=== PATIENT | female | born 1960 ===

== ENCOUNTER 2016-09-04 14:16 | Emergency (ER) | payer MEDICAID ==
[2016-09-04 14:16] VITALS: BMI 26.6
[2016-09-04 14:43] VITALS: BP 112/74; PULSE 102; RESP 18; TEMP 98.3; O2SAT 98
[2016-09-04] MEDS ORDERED: TDAP Vaccine 0.5 mL Syr IM ONE (14:51)
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
--- NOTE | 2016-09-04 15:52 | RAD ---
PROCEDURE: Radiographs of the left elbow. HISTORY: pain s/p trauma COMPARISON: No prior. FINDINGS: BONES: Normal. No fracture. JOINTS: Normal. No osteoarthritis. SOFT TISSUES: Normal. JOINT EFFUSION: None. OTHER FINDINGS: None IMPRESSION: Unremarkable radiographs of the left elbow.
--- NOTE | 2016-09-04 15:52 | RAD ---
PROCEDURE: Radiographs of the Left Shoulder HISTORY: shoulder pain s/p trauma COMPARISON: No prior. FINDINGS: BONES: Normal. No fracture. JOINTS: Normal. Glenohumeral and acromioclavicular joints preserved. No osteoarthritis. SOFT TISSUES: Normal. OTHER FINDINGS: None. IMPRESSION: Normal radiographs of the left shoulder.
--- NOTE | 2016-09-04 15:54 | RAD ---
PROCEDURE: Left Wrist Radiographs. HISTORY: wrist pain s/p trauma COMPARISON: None. FINDINGS: BONES: Normal. No fracture. JOINTS: Normal. No dislocation. SOFT TISSUES: Normal. OTHER FINDINGS: None. IMPRESSION: Normal left wrist radiographs.
== END 2016-09-04 16:28 | disposition home or self-care (01) ==
LOC: ED 14:16
DX: S63.502A Unspecified sprain of left wrist, initial encounter (principal); S43.402A Unspecified sprain of left shoulder joint, initial encounter; S40.812A Abrasion of left upper arm, initial encounter; W18.30XA Fall on same level, unspecified, initial encounter
CPT/HCPCS: 29240; 73030; 73080; 73110; 90471; 90715; 96372; 99282; J1885

== ENCOUNTER 2016-09-08 18:59 | Emergency (ER) | payer MEDICAID ==
[2016-09-08 19:00] VITALS: BMI 26.6
--- NOTE | 2016-09-08 19:04 | ED PDOC ---
Arrival/HPI - General Time Seen by Provider: 09/08/16 19:01 Historian: Patient - History of Present Illness Narrative History of Present Illness (Text): 09/08/16 19:01 55yo female biba for wound care. states she went to [facility] days ago and a dressing was placed over her abrasion. States the abrasion became stuck to the wound and she came to the ED to get it out. She denies any other complaint. Past Medical History - Provider Review Nursing Documentation Reviewed: Yes - Infectious Disease Hx of Infectious Diseases: None - Tetanus Immunization Tetanus Immunization: OTH - Past Medical History Past Medical History: No Previous - Cardiac Hx Cardiac Disorders: No - Pulmonary Hx Respiratory Disorders: No - Neurological Hx Neurological Disorder: Yes Hx Migraine: Yes Hx Seizures: Yes - HEENT Hx HEENT Disorder: No - Renal Hx Renal Disorder: No - Endocrine/Metabolic Hx Endocrine Disorders: Yes Hx Systemic Lupus Erythematosus: Yes - Hematological/Oncological Hx Blood Disorders: No - Integumentary Hx Dermatological Disorder: Yes Hx Psoriasis: Yes - Musculoskeletal/Rheumatological Hx Musculoskeletal Disorders: Yes Hx Arthritis: Yes - Gastrointestinal Hx Gastrointestinal Disorders: Yes Hx Gall Bladder Disease: Yes (stones) - Genitourinary/Gynecological Hx Genitourinary Disorders: No - Psychiatric Hx Psychophysiologic Disorder: Yes Hx Anxiety: Yes Hx Depression: Yes Hx Substance Use: No - Past Surgical History Past Surgical History: Non-Contributing - Surgical History Hx Cholecystectomy: Yes - Anesthesia Hx Anesthesia: Yes Hx Anesthesia Reactions: No Hx Malignant Hyperthermia: No - Suicidal Assessment Feels Threatened In Home Enviroment: No Family/Social History - Physician Review Nursing Documentation Reviewed: Yes Family/Social History: Unknown Family HX Smoking Status: Never Smoked Hx Alcohol Use: No Hx Substance Use: No Hx Substance Use Treatment: No Allergies/Home Meds Allergies/Adverse Reactions: Allergies morphine Allergy (Verified 09/04/16 14:40) DIZZINESS phenytoin sodium [From Dilantin] Allergy (Verified 09/04/16 14:40) RASH phenytoin sodium extended [From Dilantin] Allergy (Verified 09/04/16 14:40) RASH quetiapine fumarate [From Seroquel] Allergy (Verified 09/04/16 14:40) RASH tramadol Allergy (Verified 09/04/16 14:40) RASH Review of Systems - Physician Review All systems were reviewed & negative as marked: Yes - Review of Systems Constitutional: Normal Eyes: Normal ENT: Normal Respiratory: Normal Cardiovascular: Normal Gastrointestinal: Normal Genitourinary Female: Normal Musculoskeletal: Normal Skin: Other (Wound care) Neurological: Normal Endocrine: Normal Hemo/Lymphatic: Normal Psychiatric: Normal Physical Exam Vital Signs Reviewed: Yes Vital Signs Temp Pulse Resp BP Pulse Ox 09/08/16 19:00 99.1 F 92 H 16 120/80 98 Temperature: Afebrile Blood Pressure: Normal Pulse: Regular Respiratory Rate: Normal Appearance: Positive for: Well-Appearing, Non-Toxic, Comfortable Pain Distress: None Mental Status: Positive for: Alert and Oriented X 3 - Systems Exam Head: Present: Atraumatic, Normocephalic Pupils: Present: PERRL Extroacular Muscles: Present: EOMI Conjunctiva: Present: Normal Mouth: Present: Moist Mucous Membranes Neck: Present: Normal Range of Motion Respiratory/Chest: Present: Clear to Auscultation, Good Air Exchange. No: Respiratory Distress, Accessory Muscle Use Cardiovascular: Present: Regular Rate and Rhythm, Normal S1, S2. No: Murmurs Abdomen: Present: Normal Bowel Sounds. No: Tenderness, Distention, Peritoneal Signs Back: Present: Normal Inspection Upper Extremity: Present: Normal Inspection. No: Cyanosis, Edema Lower Extremity: Present: Normal Inspection. No: Edema Neurological: Present: GCS=15, CN II-XII Intact, Speech Normal Skin: Present: Warm, Dry, Normal Color, Other (Gauze noted stuck on right mid forearm.). No: Rashes Psychiatric: Present: Alert, Oriented x 3, Normal Insight, Normal Concentration Medical Decision Making ED Course and Treatment: 09/08/16 19:59 Wound was wet with NS and gauze was removed. Wound irrigated with NS and Bacitracine applied. Annular shaped abrasion approximately 4 x 3cm noted on left mid forearm. No erythema. No swelling. No discharge noted. Pt advised to keep wound clean and dry. Disposition/Present on Arrival - Present on Arrival Any Indicators Present on Arrival: No History of DVT/PE: No History of Uncontrolled Diabetes: No Urinary Catheter: No History Surgical Site Infection Following: None - Disposition Have Diagnosis and Disposition been Completed?: Yes Diagnosis: Visit for wound care Disposition: HOME/ ROUTINE Disposition Time: 19:15 Patient Plan: Discharge Patient Problems: Current Active Problems Problem Status Onset Visit for wound care Acute Condition: STABLE Discharge Instructions (ExitCare): Acute Wound Care (ED) Additional Instructions: Keep wound clean and dry Follow up with your Doctor Return to ED for any new or worsening symptoms Referrals: [facility] at [facility] [Outside] - Follow up with primary
[2016-09-08 19:40] VITALS: RESP 16; TEMP 99.1; O2SAT 98
[2016-09-08 20:34] VITALS: BP 117/74; PULSE 90
== END 2016-09-08 20:33 | disposition home or self-care (01) ==
LOC: ED 18:59
DX: Z51.89 Encounter for other specified aftercare (principal); M32.9 Systemic lupus erythematosus, unspecified

== ENCOUNTER 2016-10-25 13:24 | Emergency (ER) | payer MEDICAID ==
[2016-10-25 13:30] VITALS: BMI 27.4
[2016-10-25 13:35] VITALS: BP 132/70; PULSE 98; RESP 19; TEMP 98.7; O2SAT 99
--- NOTE | 2016-10-25 14:27 | ED PDOC ---
Arrival/HPI - General Historian: Patient - History of Present Illness Time/Duration: Other (2 weeks) Symptom Onset: Gradual Quality: Aching Context: Home - General Chief Complaint: Back Pain Time Seen by Provider: 10/25/16 14:09 - History of Present Illness Narrative History of Present Illness (Text): 10/25/16 14:00 This 55 yo female with pmh chronic back pain, presents to this ED by BLS c/o b/ l lower back pain x 2 weeks. Patient denies trauma, fever, weakness, paresthesias, abdominal pain, GI/ incontinence, saddle anesthesias, urinary retention, urinary symptoms, dizziness, or MCCALL. Patient statsd she ambulatory but with mild back pain. Denies constipation. Patient appears comfortable, in no acute pain distress. Patient is texting messages while laying on stretcher with personal cellphone. (Muna Perez) Past Medical History - Provider Review Nursing Documentation Reviewed: Yes - Infectious Disease Hx of Infectious Diseases: None - Tetanus Immunization Tetanus Immunization: OTH - Past Medical History Past Medical History: No Previous - Cardiac Hx Cardiac Disorders: No - Pulmonary Hx Respiratory Disorders: No - Neurological Hx Neurological Disorder: Yes Hx Migraine: Yes Hx Seizures: Yes - HEENT Hx HEENT Disorder: No - Renal Hx Renal Disorder: No - Endocrine/Metabolic Hx Endocrine Disorders: Yes Hx Systemic Lupus Erythematosus: Yes - Hematological/Oncological Hx Blood Disorders: No - Integumentary Hx Dermatological Disorder: Yes Hx Psoriasis: Yes - Musculoskeletal/Rheumatological Hx Musculoskeletal Disorders: Yes Hx Arthritis: Yes - Gastrointestinal Hx Gastrointestinal Disorders: Yes Hx Gall Bladder Disease: Yes (stones) - Genitourinary/Gynecological Hx Genitourinary Disorders: No - Psychiatric Hx Psychophysiologic Disorder: Yes Hx Anxiety: Yes Hx Depression: Yes Hx Substance Use: No - Past Surgical History Past Surgical History: Non-Contributing - Surgical History Hx Cholecystectomy: Yes - Anesthesia Hx Anesthesia: Yes Hx Anesthesia Reactions: No Hx Malignant Hyperthermia: No - Suicidal Assessment Feels Threatened In Home Enviroment: No Family/Social History - Physician Review Nursing Documentation Reviewed: Yes Family/Social History: No Known Family HX Smoking Status: Never Smoked Hx Alcohol Use: No Hx Substance Use: No Hx Substance Use Treatment: No Allergies/Home Meds Allergies/Adverse Reactions: Allergies morphine Allergy (Verified 09/04/16 14:40) DIZZINESS phenytoin sodium [From Dilantin] Allergy (Verified 09/04/16 14:40) RASH phenytoin sodium extended [From Dilantin] Allergy (Verified 09/04/16 14:40) RASH quetiapine fumarate [From Seroquel] Allergy (Verified 09/04/16 14:40) RASH tramadol Allergy (Verified 09/04/16 14:40) RASH Home Medications: Home Meds Medication Instructions Recorded Confirmed Acetaminophen with Codeine 1 tab PO DAILY PRN 10/25/16 10/25/16 [Tylenol with Codeine #3 Tablet] Review of Systems - Review of Systems Constitutional: Normal. absent: Fatigue, Weight Change, Fevers, Night Sweats Eyes: Normal ENT: Normal Respiratory: Normal. absent: SOB, Cough, Sputum Cardiovascular: Normal. absent: Chest Pain, Palpitations Gastrointestinal: Normal. absent: Abdominal Pain, Nausea, Vomiting Genitourinary Female: Normal. absent: Dysuria, Frequency, Hematuria, Vaginal Bleeding, Vaginal Discharge Musculoskeletal: Back Pain. absent: Arthralgias, Neck Pain, Joint Swelling, Myalgias Skin: Normal. absent: Rash Neurological: Normal, Other (normal gait.). absent: Headache, Dizziness, Focal Weakness, Gait Changes, Speech Changes, Facial Droop, Disequilibrium, Seizure Endocrine: Normal Hemo/Lymphatic: Normal Psychiatric: Normal, Anxiety (pmh anxiety. Denies SI, or HI) Physical Exam Temperature: Afebrile Blood Pressure: Normal Pulse: Regular Respiratory Rate: Normal Appearance: Positive for: Well-Appearing, Non-Toxic, Comfortable Pain Distress: None Mental Status: Positive for: Alert and Oriented X 3 - Systems Exam Head: Present: Atraumatic, Normocephalic Pupils: Present: PERRL Extroacular Muscles: Present: EOMI Conjunctiva: Present: Normal Mouth: Present: Moist Mucous Membranes Neck: Present: Normal Range of Motion, Trachea Midline. No: Meningeal Signs, MIDLINE TENDERNESS, Paraspinal Tenderness, Lymphadenopathy Respiratory/Chest: Present: Clear to Auscultation, Good Air Exchange. No: Respiratory Distress, Accessory Muscle Use Cardiovascular: Present: Regular Rate and Rhythm, Normal S1, S2. No: Murmurs Abdomen: Present: Normal Bowel Sounds. No: Tenderness, Distention, Peritoneal Signs, Rebound, Guarding, McBurney's Point Tender, Rovsing's Sign Present, Hernias Back: Present: Normal Inspection. No: CVA Tenderness, Midline Tenderness, Paraspinal Tenderness, Pain with Leg Raise Upper Extremity: Present: Normal Inspection, Normal ROM, NORMAL PULSES, Neurovascularly Intact, Capillary Refill < 2s. No: Cyanosis, Edema Lower Extremity: Present: Normal Inspection, NORMAL PULSES, Normal ROM. No: Edema Neurological: Present: GCS=15, CN II-XII Intact, Speech Normal, Motor Func Grossly Intact, Normal Sensory Function, Normal Cerebellar Funct, Gait Normal, Memory Normal Skin: Present: Warm, Dry, Normal Color. No: Rashes Psychiatric: Present: Alert, Oriented x 3, Normal Insight, Normal Concentration Vital Signs Temp Pulse Resp BP Pulse Ox 10/25/16 13:34 98.7 F 98 H 19 132/70 99 Medical Decision Making Re-evaluation Time: 14:40 Reassessment Condition: Re-examined, Improved ED Course and Treatment: 10/25/16 14:42 I was available for consultation during PA evaluation. The chart reviewed by me , and I agree with disposition. The documented history was done by the physician coal tram driver. The documented physical exam was done by physician coal tram driver. The documented procedures were done by physician coal tram driver. (Leif Velazco) 10/25/16 14:41 Discussed results and plan with patient. Patient understands results and is agreeable with plan. All questions answered Patient symptoms had improved after Toradol IM. Patient is ambulatory without neuro focal deficits. Patient feels well and wishes to be discharge home. (Muna Perez) - Medication Orders Current Medication Orders: Discontinued Medications Ketorolac Tromethamine (Toradol) 15 mg IM STAT STA Stop: 10/25/16 14:30 Last Admin: 10/25/16 14:35 Dose: 15 mg Disposition/Present on Arrival - Present on Arrival Any Indicators Present on Arrival: No History of DVT/PE: No History of Uncontrolled Diabetes: No Urinary Catheter: No History of Decub. Ulcer: No History Surgical Site Infection Following: None - Disposition Have Diagnosis and Disposition been Completed?: Yes Disposition Time: 14:44 Patient Plan: Discharge - Disposition Diagnosis: Chronic back pain Disposition: HOME/ ROUTINE Condition: GOOD Discharge Instructions (ExitCare): Chronic Back Pain (ED) Additional Instructions: Call private doctor for follow up visit in 1-2 days. Take medication as instructed. Return to emergency if symptoms worsen. Prescriptions: Naproxen 500 mg PO BID PRN #14 tab PRN Reason: Pain, Severe (8-10) Referrals: PCP,NO [Primary Care Provider] - Follow up with primary Forms: [employer] (Ukrainian)
== END 2016-10-25 14:48 | disposition home or self-care (01) ==
LOC: ED 13:24
DX: M54.9 Dorsalgia, unspecified (principal); G89.29 Other chronic pain
CPT/HCPCS: 96372; 99284; J1885

== ENCOUNTER 2016-10-27 20:26 | Emergency (ER) | payer MEDICAID ==
[2016-10-27 20:26] VITALS: BMI 27.4
[2016-10-27 20:50] VITALS: RESP 17; O2SAT 100
[2016-10-27 20:52] VITALS: TEMP 98.6
--- NOTE | 2016-10-27 21:10 | ED PDOC ---
Arrival/HPI - General Chief Complaint: GI Problem Time Seen by Provider: 10/27/16 20:35 Historian: Patient - History of Present Illness Narrative History of Present Illness (Text): 10/27/16 21:07 Gladys Franz is a 55 year old female, with a history of hypertension and chronic back pain, presents to the emergency department complaining of abdominal pain and rectal bleeding since today morning. Denies any constipation or straining. Denies any black tarry stool. Denies any fever, chills, headache, dizziness, chest pain, shortness of breath, nausea, vomiting, diarrhea, or any other complaints at this time. Time/Duration: Other (today morning ) Symptom Course: Unchanged Severity Level: Mild Activities at Onset: Light Past Medical History - Provider Review Nursing Documentation Reviewed: Yes - Infectious Disease Hx of Infectious Diseases: None - Tetanus Immunization Tetanus Immunization: OTH - Past Medical History Past Medical History: No Previous - Cardiac Hx Cardiac Disorders: No - Pulmonary Hx Respiratory Disorders: No - Neurological Hx Neurological Disorder: Yes Hx Migraine: Yes Hx Seizures: Yes - HEENT Hx HEENT Disorder: No - Renal Hx Renal Disorder: No - Endocrine/Metabolic Hx Endocrine Disorders: Yes Hx Systemic Lupus Erythematosus: Yes - Hematological/Oncological Hx Blood Disorders: No - Integumentary Hx Dermatological Disorder: Yes Hx Psoriasis: Yes - Musculoskeletal/Rheumatological Hx Musculoskeletal Disorders: Yes Hx Arthritis: Yes - Gastrointestinal Hx Gastrointestinal Disorders: Yes Hx Gall Bladder Disease: Yes (stones) - Genitourinary/Gynecological Hx Genitourinary Disorders: No - Psychiatric Hx Psychophysiologic Disorder: Yes Hx Anxiety: Yes Hx Depression: Yes Hx Substance Use: No - Past Surgical History Past Surgical History: Non-Contributing - Surgical History Hx Cholecystectomy: Yes - Anesthesia Hx Anesthesia: Yes Hx Anesthesia Reactions: No Hx Malignant Hyperthermia: No - Suicidal Assessment Feels Threatened In Home Enviroment: No Family/Social History - Physician Review Nursing Documentation Reviewed: Yes Family/Social History: No Known Family HX Smoking Status: Never Smoked Hx Alcohol Use: No Hx Substance Use: No Hx Substance Use Treatment: No Allergies/Home Meds Allergies/Adverse Reactions: Allergies morphine Allergy (Verified 09/04/16 14:40) DIZZINESS phenytoin sodium [From Dilantin] Allergy (Verified 09/04/16 14:40) RASH phenytoin sodium extended [From Dilantin] Allergy (Verified 09/04/16 14:40) RASH quetiapine fumarate [From Seroquel] Allergy (Verified 09/04/16 14:40) RASH tramadol Allergy (Verified 09/04/16 14:40) RASH Home Medications: Home Meds Medication Instructions Recorded Confirmed Acetaminophen with Codeine 1 tab PO DAILY PRN 10/25/16 10/27/16 [Tylenol with Codeine #3 Tablet] Physical Exam Vital Signs Reviewed: Yes Vital Signs Temp Pulse Resp BP Pulse Ox 10/27/16 23:00 78 17 120/75 100 10/27/16 22:00 80 17 119/71 100 10/27/16 20:26 98.6 F 104 H 17 118/58 L 100 Temperature: Afebrile Blood Pressure: Normal Pulse: Tachycardic Respiratory Rate: Normal Appearance: Positive for: Well-Appearing, Non-Toxic, Comfortable Pain Distress: None Mental Status: Positive for: Alert and Oriented X 3 - Systems Exam Head: Present: Atraumatic, Normocephalic Pupils: Present: PERRL Conjunctiva: Present: Normal Mouth: Present: Moist Mucous Membranes Respiratory/Chest: Present: Clear to Auscultation, Good Air Exchange. No: Respiratory Distress, Accessory Muscle Use Cardiovascular: Present: Regular Rate and Rhythm, Normal S1, S2. No: Murmurs Abdomen: Present: Normal Bowel Sounds. No: Tenderness, Distention, Peritoneal Signs, Rebound, Guarding Rectal: No: Occult Blood, Rectal Tenderness, Gross Blood Upper Extremity: Present: Normal Inspection. No: Cyanosis, Edema Lower Extremity: Present: Normal Inspection. No: Edema Neurological: Present: GCS=15, CN II-XII Intact, Speech Normal, Motor Func Grossly Intact, Normal Sensory Function Skin: Present: Warm, Dry, Normal Color. No: Rashes Psychiatric: Present: Alert, Oriented x 3, Normal Insight, Normal Concentration Medical Decision Making ED Course and Treatment: 10/27/16 21:13 Impression:A 55 year old female who presents to the emergency department complaining of abdominal pain and rectal bleeding. Plan: -- CT abdomen pelvis -- EKG -- Labs, cardiac enzymes -- Chest X-ray -- Reassess and disposition Progress Notes: 10/27/16 22:55 EKG reviewed by me: NSR @ 86 bpm. Right atrial enlargement. Patient states that she wants to sign out against medical advice. I strongly advised the patient to stay in the hospital for completion of treatment, but she states she understands the risks of leaving and is adamant in her decision. Advised to follow up with PMD within few days and present back to emergency department for any new/worsening symptoms Leaving Against Medical Advice (AMA): The patient is choosing to leave against medical advice. I have personally explained to the patient that choosing to do so may result in permanent bodily harm or . I have discussed at great length that without further evaluation and monitoring there may be unforeseen circumstances and/or deterioration causing permanent bodily harm or as a result of their choice. The patient is alert, oriented, and shows the mental capacity to make clear decisions regarding the patients health care at this time. The patient continues to wish to leave against medical advice. The patient has been advised that they should return to the emergency room immediately if they change their mind at any time, or if their condition begins to change or worsen in any way.. - Lab Interpretations I have reviewed the lab results: Yes - RAD Interpretation Radiology Orders: 10/27/16 20:58 CHEST PORTABLE [RAD] Stat Sticker Machine Operator: Radiologist - Scribe Statement The provider has reviewed the documentation as recorded by the Ninaibe Sebastian Rojas Provider Attestation: Provider Scribe Attestation: All medical record entries made by the Ninaibe were at my direction and personally dictated by me. I have reviewed the chart and agree that the record accurately reflects my personal performance of the history, physical exam, medical decision making, and the department course for this patient. I have also personally directed, reviewed, and agree with the discharge instructions and disposition. Disposition/Present on Arrival - Present on Arrival Any Indicators Present on Arrival: No History of DVT/PE: No History of Uncontrolled Diabetes: No Urinary Catheter: No History of Decub. Ulcer: No History Surgical Site Infection Following: None - Disposition Have Diagnosis and Disposition been Completed?: Yes Diagnosis: Lower gastrointestinal bleeding Disposition: AGAINST MEDICAL ADVICE Disposition Time: 23:00 Condition: UNKNOWN Referrals: Kar Welch [Primary Care Provider] - Follow up with primary Forms: [employer] (B[place]ian)
[2016-10-28 00:35] VITALS: BP 120/75; PULSE 78
--- NOTE | 2016-10-28 07:12 | RAD ---
Chest x-ray single frontal view History: GI bleed. Comparison: 02/23/2016 Findings: Mild venous congestion. Bilateral hilar prominence. Biapical pleural thickening. Heart size within limits. Degenerative changes in the spine and shoulders. Productive change at the end of the left distal clavicle. Impression: Mild venous congestion. Bilateral hilar prominence.
--- NOTE | 2016-10-29 09:41 | CARD ---
APPROVED REPORT EKG Measurement Heart [id number] MD [id number] [id number] <Conclusion> Normal sinus rhythm Right atrial enlargement Lead reversal V 1 - 2 Probably no change
== END 2016-10-27 23:00 | disposition left against medical advice (07) ==
LOC: ED 20:26
DX: K92.2 Gastrointestinal hemorrhage, unspecified (principal); I10 Essential (primary) hypertension

== ENCOUNTER 2016-10-30 09:53 | Emergency (ER) | payer MEDICAID ==
[2016-10-30 09:54] VITALS: BMI 27.4
[2016-10-30 09:59] VITALS: BP 136/82; PULSE 95; RESP 16; TEMP 98.6; O2SAT 100
--- NOTE | 2016-10-30 10:34 | ED PDOC ---
Arrival/HPI - General Chief Complaint: Anxiety Time Seen by Provider: 10/30/16 10:13 Historian: Mcfp - History of Present Illness Narrative History of Present Illness (Text): 10/30/16 10:31 This 55 yo female presents to this ED c/o anxiety x 2 days. Patient stated she ran out of her medication, and she is requesting anxiety meds. Patient denies sob, cp, SI, HI, or abnormal gait. Time/Duration: Other (see hpi) Context: Home Past Medical History - Provider Review Nursing Documentation Reviewed: Yes - Infectious Disease Hx of Infectious Diseases: None - Tetanus Immunization Tetanus Immunization: OTH - Reproductive Menopause: Yes - Past Medical History Past Medical History: No Previous - Cardiac Hx Cardiac Disorders: No - Pulmonary Hx Respiratory Disorders: No - Neurological Hx Neurological Disorder: Yes Hx Migraine: Yes Hx Seizures: Yes - HEENT Hx HEENT Disorder: No - Renal Hx Renal Disorder: No - Endocrine/Metabolic Hx Endocrine Disorders: Yes Hx Systemic Lupus Erythematosus: Yes - Hematological/Oncological Hx Blood Disorders: No - Integumentary Hx Dermatological Disorder: Yes Hx Psoriasis: Yes - Musculoskeletal/Rheumatological Hx Musculoskeletal Disorders: Yes Hx Arthritis: Yes - Gastrointestinal Hx Gastrointestinal Disorders: Yes Hx Gall Bladder Disease: Yes (stones) - Genitourinary/Gynecological Hx Genitourinary Disorders: No - Psychiatric Hx Psychophysiologic Disorder: Yes Hx Anxiety: Yes Hx Depression: Yes Hx Substance Use: No - Past Surgical History Past Surgical History: Non-Contributing - Surgical History Hx Cholecystectomy: Yes - Anesthesia Hx Anesthesia: Yes Hx Anesthesia Reactions: No Hx Malignant Hyperthermia: No - Suicidal Assessment Feels Threatened In Home Enviroment: No Family/Social History - Physician Review Nursing Documentation Reviewed: Yes Family/Social History: No Known Family HX Smoking Status: Never Smoked Hx Alcohol Use: No Hx Substance Use: No Hx Substance Use Treatment: No Allergies/Home Meds Allergies/Adverse Reactions: Allergies morphine Allergy (Verified 09/04/16 14:40) DIZZINESS phenytoin sodium [From Dilantin] Allergy (Verified 09/04/16 14:40) RASH phenytoin sodium extended [From Dilantin] Allergy (Verified 09/04/16 14:40) RASH quetiapine fumarate [From Seroquel] Allergy (Verified 09/04/16 14:40) RASH tramadol Allergy (Verified 09/04/16 14:40) RASH Home Medications: Home Meds Medication Instructions Recorded Confirmed No Known Home Med 10/30/16 10/30/16 Review of Systems - Review of Systems Constitutional: Normal. absent: Fatigue, Weight Change, Fevers Eyes: Normal ENT: Normal Respiratory: Normal. absent: SOB, Cough Cardiovascular: Normal. absent: Chest Pain Gastrointestinal: Normal Genitourinary Female: Normal Musculoskeletal: Normal Skin: Normal. absent: Rash Neurological: Normal. absent: Headache, Dizziness, Focal Weakness, Gait Changes , Speech Changes, Facial Droop Endocrine: Normal Hemo/Lymphatic: Normal Psychiatric: Anxiety. absent: Depression, Suicidal Ideation Physical Exam Vital Signs Temp Pulse Resp BP Pulse Ox 10/30/16 09:56 98.6 F 95 H 16 136/82 100 Temperature: Afebrile Blood Pressure: Normal Pulse: Regular Respiratory Rate: Normal Appearance: Positive for: Well-Appearing, Non-Toxic, Comfortable Pain Distress: None Mental Status: Positive for: Alert and Oriented X 3 - Systems Exam Head: Present: Atraumatic, Normocephalic Pupils: Present: PERRL Extroacular Muscles: Present: EOMI Conjunctiva: Present: Normal Mouth: Present: Moist Mucous Membranes Neck: Present: Normal Range of Motion Respiratory/Chest: Present: Clear to Auscultation, Good Air Exchange. No: Respiratory Distress, Accessory Muscle Use Cardiovascular: Present: Regular Rate and Rhythm, Normal S1, S2. No: Murmurs Abdomen: Present: Normal Bowel Sounds. No: Tenderness, Distention, Peritoneal Signs Back: Present: Normal Inspection Upper Extremity: Present: Normal Inspection. No: Cyanosis, Edema Lower Extremity: Present: Normal Inspection. No: Edema Neurological: Present: GCS=15, CN II-XII Intact, Speech Normal, Motor Func Grossly Intact, Normal Sensory Function, Normal Cerebellar Funct, Gait Normal, Memory Normal Skin: Present: Warm, Dry, Normal Color. No: Rashes Psychiatric: Present: Alert, Oriented x 3, Anxious. No: Suicidal Ideation, Homicidal Ideation, Delusional, Hallucinations, Intoxicated Medical Decision Making ED Course and Treatment: 10/30/16 10:47 Patient does not want to have blood test or urine test done to her. Patient stated she is not suicidal or homicidal. She does not want to see PES screener. She prefers seeing her pmd. Patient is alert and oriented x 3. She speak in full sentences. She has a normal gait. I reviewed [place] [facility] which demonstrates patient has been filling Aprazolam 0.5 tab #90 tabs, Acetaminophen #3 tab #90 tabs, and Zolpidem 10 mg tab #30 tabs. Last time patient filled this medication was 10/09/2016 Re-evaluation Time: 10:56 Reassessment Condition: Re-examined, Improved - RAD Interpretation Radiology Orders: 10/30/16 10:32 CHEST PORTABLE [RAD] Stat Disposition/Present on Arrival - Present on Arrival Any Indicators Present on Arrival: No History of DVT/PE: No History of Uncontrolled Diabetes: No Urinary Catheter: No History of Decub. Ulcer: No History Surgical Site Infection Following: None - Disposition Have Diagnosis and Disposition been Completed?: Yes Diagnosis: Anxiety Disposition: HOME/ ROUTINE Disposition Time: 10:56 Patient Plan: Discharge Condition: GOOD Discharge Instructions (ExitCare): Anxiety (ED) Additional Instructions: Call private doctor for follow up visit in 1-2 days. Take home medication as instructed. Do not take more tabs that otherwise ordered by your doctor. Referrals: Patient Care Nursing Assistant Service [Outside] - Follow up with primary [facility] [Outside] - Follow up with primary
--- NOTE | 2016-10-30 11:38 | RAD ---
HISTORY: PES eval COMPARISON: 10/27/2016. FINDINGS: LUNGS: The lungs are well inflated and clear. PLEURA: No significant pleural effusion identified, no pneumothorax apparent. CARDIOVASCULAR: The heart is normal in size. The cardiomediastinal silhouette is stable. There is stable prominence of bilateral malena. OSSEOUS STRUCTURES: No significant abnormalities. VISUALIZED UPPER ABDOMEN: Normal. OTHER FINDINGS: None. IMPRESSION: No acute findings.
== END 2016-10-30 11:04 | disposition home or self-care (01) ==
LOC: ED 09:53
DX: F41.9 Anxiety disorder, unspecified (principal)

== ENCOUNTER 2016-10-31 05:08 | Emergency (ER) | payer MEDICAID ==
[2016-10-31 05:10] VITALS: BMI 27.4
[2016-10-31 05:21] VITALS: BP 152/81; PULSE 94; RESP 16; TEMP 98.2; O2SAT 100
--- NOTE | 2016-10-31 05:57 | ED PDOC ---
Arrival/HPI - General Chief Complaint: Anxiety Time Seen by Provider: 10/31/16 05:39 - History of Present Illness Narrative History of Present Illness (Text): 55F presents via ambulance requesting a "shot to calm me down." she also requests anxiety medication as she says she lost her medication "30 days ago." denies chest pain, sob, cough, fever. Past Medical History - Infectious Disease Hx of Infectious Diseases: None - Tetanus Immunization Tetanus Immunization: OTH - Past Medical History Past Medical History: No Previous - Cardiac Hx Cardiac Disorders: No - Pulmonary Hx Respiratory Disorders: No - Neurological Hx Neurological Disorder: Yes Hx Migraine: Yes Hx Seizures: Yes - HEENT Hx HEENT Disorder: No - Renal Hx Renal Disorder: No - Endocrine/Metabolic Hx Endocrine Disorders: Yes Hx Systemic Lupus Erythematosus: Yes - Hematological/Oncological Hx Blood Disorders: No - Integumentary Hx Dermatological Disorder: Yes Hx Psoriasis: Yes - Musculoskeletal/Rheumatological Hx Musculoskeletal Disorders: Yes Hx Arthritis: Yes - Gastrointestinal Hx Gastrointestinal Disorders: Yes Hx Gall Bladder Disease: Yes (stones) - Genitourinary/Gynecological Hx Genitourinary Disorders: No - Psychiatric Hx Psychophysiologic Disorder: Yes Hx Anxiety: Yes Hx Depression: Yes Hx Substance Use: No - Past Surgical History Past Surgical History: Non-Contributing - Surgical History Hx Cholecystectomy: Yes - Anesthesia Hx Anesthesia: Yes Hx Anesthesia Reactions: No Hx Malignant Hyperthermia: No - Suicidal Assessment Feels Threatened In Home Enviroment: No Family/Social History Family/Social History: Other Smoking Status: Never Smoked Hx Alcohol Use: No Hx Substance Use: No Hx Substance Use Treatment: No Allergies/Home Meds Allergies/Adverse Reactions: Allergies morphine Allergy (Verified 10/31/16 05:18) DIZZINESS phenytoin sodium [From Dilantin] Allergy (Verified 10/31/16 05:18) RASH phenytoin sodium extended [From Dilantin] Allergy (Verified 10/31/16 05:18) RASH quetiapine fumarate [From Seroquel] Allergy (Verified 10/31/16 05:18) RASH tramadol Allergy (Verified 10/31/16 05:18) RASH Home Medications: Home Meds Medication Instructions Recorded Confirmed No Known Home Med 10/30/16 10/31/16 Review of Systems - Review of Systems Constitutional: absent: Fevers Respiratory: absent: SOB, Cough Cardiovascular: absent: Chest Pain Gastrointestinal: absent: Abdominal Pain, Vomiting Neurological: absent: Headache, Focal Weakness Physical Exam Vital Signs Reviewed: Yes Vital Signs Temp Pulse Resp BP Pulse Ox 10/31/16 05:20 98.2 F 94 H 16 152/81 H 100 Appearance: Positive for: Well-Appearing, Non-Toxic, Comfortable Pain Distress: None Mental Status: Positive for: Alert and Oriented X 3 - Systems Exam Head: Present: Atraumatic Pupils: Present: PERRL Extroacular Muscles: Present: EOMI Mouth: Present: Moist Mucous Membranes Respiratory/Chest: Present: Clear to Auscultation Cardiovascular: Present: Regular Rate and Rhythm Abdomen: No: Tenderness, Distention Neurological: Present: GCS=15, Motor Func Grossly Intact, Normal Sensory Function, Other (no focal deficits) Skin: Present: Warm, Dry Psychiatric: Present: Alert, Oriented x 3 Disposition/Present on Arrival - Present on Arrival Any Indicators Present on Arrival: No History of DVT/PE: No History of Uncontrolled Diabetes: No Urinary Catheter: No History of Decub. Ulcer: No History Surgical Site Infection Following: None - Disposition Have Diagnosis and Disposition been Completed?: Yes Diagnosis: Anxiety Disposition: HOME/ ROUTINE Disposition Time: 05:57 Condition: STABLE Forms: [employer] (Sinhala)
== END 2016-10-31 06:15 | disposition home or self-care (01) ==
LOC: ED 05:08
DX: F41.9 Anxiety disorder, unspecified (principal); M32.9 Systemic lupus erythematosus, unspecified

== ENCOUNTER 2017-01-15 19:23 | Emergency (ER) | payer MEDICAID ==
[2017-01-15 19:24] VITALS: BMI 27.4
[2017-01-15] MEDS ORDERED: Sodium Chloride 0.9% 1,000 ML IV STA (19:51)
[2017-01-15] MEDS ORDERED: Pedialyte 1000 ml PO ONE (20:26)
--- NOTE | 2017-01-15 21:27 | ED PDOC ---
Arrival/HPI - General Chief Complaint: GI Problem Time Seen by Provider: 01/15/17 19:25 Historian: Patient - History of Present Illness Narrative History of Present Illness (Text): 01/15/17 19:51 Gladys Franz is a 56 year old female, whose past medical history includes migraines, SLE, seizure disorder, opiate dependence, anxiety, depression, and chronic back pain, who presents to the Emergency department complaining of nausea and vomiting today. Patient also reports associated diarrhea. Patient denies fever, chills, chest pain, shortness of breath, urinary symptoms, back pain, neck pain, headache, dizziness, or any other complaints. Time/Duration: Other (today) Symptom Onset: Gradual Symptom Course: Unchanged Activities at Onset: Light Context: Home Past Medical History - Provider Review Nursing Documentation Reviewed: Yes - Infectious Disease Hx of Infectious Diseases: None - Tetanus Immunization Tetanus Immunization: OTH - Past Medical History Past Medical History: No Previous - Cardiac Hx Cardiac Disorders: No - Pulmonary Hx Respiratory Disorders: No - Neurological Hx Neurological Disorder: Yes Hx Migraine: Yes Hx Seizures: Yes - HEENT Hx HEENT Disorder: No - Renal Hx Renal Disorder: No - Endocrine/Metabolic Hx Endocrine Disorders: Yes Hx Systemic Lupus Erythematosus: Yes - Hematological/Oncological Hx Blood Disorders: No - Integumentary Hx Dermatological Disorder: Yes Hx Psoriasis: Yes - Musculoskeletal/Rheumatological Hx Musculoskeletal Disorders: Yes Hx Arthritis: Yes - Gastrointestinal Hx Gastrointestinal Disorders: Yes Hx Gall Bladder Disease: Yes (stones) - Genitourinary/Gynecological Hx Genitourinary Disorders: No - Psychiatric Hx Psychophysiologic Disorder: Yes Hx Anxiety: Yes Hx Depression: Yes Hx Substance Use: No - Past Surgical History Past Surgical History: Non-Contributing - Surgical History Hx Cholecystectomy: Yes - Anesthesia Hx Anesthesia: Yes Hx Anesthesia Reactions: No Hx Malignant Hyperthermia: No - Suicidal Assessment Feels Threatened In Home Enviroment: No Family/Social History - Physician Review Nursing Documentation Reviewed: Yes Family/Social History: Unknown Family HX Smoking Status: Never Smoked Hx Alcohol Use: No Hx Substance Use: No Hx Substance Use Treatment: No Allergies/Home Meds Allergies/Adverse Reactions: Allergies morphine Allergy (Verified 01/17/17 14:18) DIZZINESS phenytoin sodium [From Dilantin] Allergy (Verified 01/17/17 14:18) RASH phenytoin sodium extended [From Dilantin] Allergy (Verified 01/17/17 14:18) RASH quetiapine fumarate [From Seroquel] Allergy (Verified 01/17/17 14:18) RASH tramadol Allergy (Verified 01/17/17 14:18) RASH Review of Systems - Physician Review All systems were reviewed & negative as marked: Yes - Review of Systems Constitutional: Normal. absent: Fevers Eyes: Normal ENT: Normal Respiratory: Normal. absent: SOB, Cough Cardiovascular: Normal. absent: Chest Pain Gastrointestinal: Diarrhea, Nausea, Vomiting. absent: Abdominal Pain Genitourinary Female: Normal. absent: Dysuria, Frequency, Hematuria, Urine Output Changes Musculoskeletal: Normal. absent: Back Pain, Neck Pain Skin: Normal. absent: Rash Neurological: Normal. absent: Headache, Dizziness Endocrine: Normal Hemo/Lymphatic: Normal Psychiatric: Normal Physical Exam Vital Signs Reviewed: Yes Vital Signs Temp Pulse Resp BP Pulse Ox 01/16/17 00:08 91 H 19 97 01/15/17 23:47 98.9 F 98 H 19 97 01/15/17 21:24 102 H 16 120/88 99 01/15/17 19:45 98.2 F 118 H 20 123/82 100 Temperature: Afebrile Blood Pressure: Normal Pulse: Regular Respiratory Rate: Normal Appearance: Positive for: Well-Appearing, Non-Toxic, Comfortable Pain Distress: None Mental Status: Positive for: Alert and Oriented X 3 - Systems Exam Head: Present: Atraumatic, Normocephalic Pupils: Present: PERRL Extroacular Muscles: Present: EOMI Conjunctiva: Present: Normal Mouth: Present: Moist Mucous Membranes Neck: Present: Normal Range of Motion Respiratory/Chest: Present: Clear to Auscultation, Good Air Exchange. No: Respiratory Distress, Accessory Muscle Use Cardiovascular: Present: Regular Rate and Rhythm, Normal S1, S2. No: Murmurs Abdomen: Present: Normal Bowel Sounds. No: Tenderness, Distention, Peritoneal Signs Back: Present: Normal Inspection Upper Extremity: Present: Normal Inspection. No: Cyanosis, Edema Lower Extremity: Present: Normal Inspection. No: Edema Neurological: Present: GCS=15, CN II-XII Intact, Speech Normal Skin: Present: Warm, Dry, Normal Color. No: Rashes Psychiatric: Present: Alert, Oriented x 3, Normal Insight, Normal Concentration Medical Decision Making ED Course and Treatment: 01/15/17 19:51 Impression: 56 year old female complaining of vomiting and diarrhea today. Plan: -- CT Maxillofacial w/o contrast -- CT Abdomen and Pelvis w/o contrast -- EKG -- Labs, cardiac enzymes, lipase, amylase, VBG -- UA -- IV fluids -- Zofran -- Pedialyte -- Reassess and disposition Prior Visits: Notes and results from previous visits were reviewed. On 10/31/2016, pt was seen in the Emergency department for anxiety. Pt was d/c home. Progress Notes: Reviewed EKG, NSR at [address] bpm[address] Non-specific ST/T wave changes. Pt with lack of adequate venous access. Requested IV placement in neck. Pt refusing IV line in neck. 01/15/17 22:25 Reviewed radiology, CT Maxillofacial shows: No acute fracture. Orbits unremarkable. Sinuses are aerated. Dental disease with periapical lucencies. Correlate clinically. IMPRESSION: Negative for acute fracture. Dental disease with periapical lucencies. Correlate clinically. CT Abdomen and Pelvis shows: Cholecystectomy clips are present. Splenic calcifications. The liver, adrenals, and pancreas appear grossly normal on this non-contrast study. No perinephric stranding. No hydronephrosis. No obstructing calculi. The bowel appears grossly normal. A normal appendix is identified images 133 through 137. The uterus and ovaries appear grossly normal. Stable lytic areas in the L2 and L3 vertebra and in the right iliac bone. IMPRESSION: No acute findings. Evaluation of solid organs is limited by lack of intravenous contrast. 01/15/17 23:42 Pt refusing any lab work. Pt will sign out against medical advice. Leaving Against Medical Advice (AMA): The patient is choosing to leave against medical advice. I have personally explained to the patient that choosing to do so may result in permanent bodily harm or . I have discussed at great length that without further evaluation and monitoring there may be unforeseen circumstances and/or deterioration causing permanent bodily harm or as a result of their choice. The patient is alert, oriented, and shows the mental capacity to make clear decisions regarding the patients health care at this time. The patient continues to wish to leave against medical advice. In light of the patients decision to leave against medical advice, follow-up has been arranged and the patient is aware of the importance to following up as instructed. The patient has been advised that they should return to the emergency room immediately if they change their mind at any time, or if their condition begins to change or worsen in any way. - Lab Interpretations Lab Results: 01/15/17 23:05 Lab Results 01/15/17 23:05: WBC 6.2, RBC 4.95, Hgb 14.8, Hct 42.3, MCV 85.5, MCH 29.9, MCHC 35.0, RDW 14.4, Plt Count 282, MPV 9.4, Gran % 57.5, Lymph % (Auto) 33.9, [place] % (Auto) 7.8 H, Eos % (Auto) 0.3 L, Baso % (Auto) 0.5, Gran # 3.55, Lymph # 2.1 , [place] # 0.5, Eos # 0.0, Baso # 0.03 I have reviewed the lab results: Yes - RAD Interpretation Radiology Orders: 01/15/17 19:51 ABD & PELVIS W/O PO OR IV CONT [CT] Stat 01/15/17 20:49 MAXILLOFACIAL W/O CONTRAST [CT] Stat Internship Coordinator: Radiologist - Medication Orders Current Medication Orders: Discontinued Medications Acetaminophen (Tylenol 325mg Tab) 650 mg PO STAT STA Stop: 01/15/17 23:38 Last Admin: 01/15/17 23:54 Dose: Not Given Non-Admin Reason: Patient Refused Ondansetron HCl (Zofran Odt) 8 mg PO STAT STA Stop: 01/15/17 20:27 Last Admin: 01/15/17 20:59 Dose: 8 mg Oral Electrolytes (Pedialyte) 1,000 ml PO ONCE ONE Stop: 01/15/17 20:27 Last Admin: 01/15/17 22:35 Dose: 1,000 ml - Scribe Statement The provider has reviewed the documentation as recorded by the Ninaibgabo Nicholas All medical record entries made by the Scribgabo were at my direction and personally dictated by me. I have reviewed the chart and agree that the record accurately reflects my personal performance of the history, physical exam, medical decision making, and the department course for this patient. I have also personally directed, reviewed, and agree with the discharge instructions and disposition. Disposition/Present on Arrival - Present on Arrival Any Indicators Present on Arrival: No History of DVT/PE: No History of Uncontrolled Diabetes: No Urinary Catheter: No History of Decub. Ulcer: No History Surgical Site Infection Following: None - Disposition Have Diagnosis and Disposition been Completed?: Yes Diagnosis: Chronic back pain Disposition: AGAINST MEDICAL ADVICE Disposition Time: 23:45 Condition: UNKNOWN Forms: [email or web address] (Yakut)
[2017-01-15 21:36] VITALS: BP 120/88
--- NOTE | 2017-01-15 22:14 | CT ---
EXAM: CT Maxillofacial Without Intravenous Contrast CLINICAL HISTORY: 56 years old, female; Injury or trauma; Injury Unknown; Initial encounter; Blunt trauma (contusions or hematomas); Orbit/periorbital; Left TECHNIQUE: Axial computed tomography images of the face without intravenous contrast. All CT scans at this facility use one or more dose reduction techniques, viz.: automated exposure control; ma/kV adjustment per patient size (including targeted exams where dose is matched to indication; i.e. head); or iterative reconstruction technique. Coronal and sagittal reformatted images were created and reviewed. COMPARISON: No relevant prior studies available. FINDINGS: No acute fracture. Orbits unremarkable. Sinuses are aerated. Dental disease with periapical lucencies. Correlate clinically. IMPRESSION: Negative for acute fracture. Dental disease with periapical lucencies. Correlate clinically.
--- NOTE | 2017-01-15 22:23 | CT ---
EXAM: CT Abdomen and Pelvis Without Intravenous Contrast EXAM DATE/TIME: 01/15/2017 7:51 PM CLINICAL HISTORY: 56 years old, female; Pain; Abdominal pain; Additional info: Abd pain TECHNIQUE: Axial computed tomography images of the abdomen and pelvis without intravenous contrast. All CT scans at this facility use one or more dose reduction techniques, viz.: automated exposure control; ma/kV adjustment per patient size (including targeted exams where dose is matched to indication; i.e. head); or iterative reconstruction technique. Coronal and sagittal reformatted images were created and reviewed. COMPARISON: CT - ABD PELVIS W/O PO OR IV CONT 2015-09-22 20:39 FINDINGS: Cholecystectomy clips are present. Splenic calcifications. The liver, adrenals, and pancreas appear grossly normal on this non-contrast study. No perinephric stranding. No hydronephrosis. No obstructing calculi. The bowel appears grossly normal. A normal appendix is identified images 133 through 137. The uterus and ovaries appear grossly normal. Stable lytic areas in the L2 and L3 vertebra and in the right iliac bone. IMPRESSION: No acute findings. Evaluation of solid organs is limited by lack of intravenous contrast.
[2017-01-15 23:19] LABS: BASO # 0.03 K/mm3 (0.0-2.0); BASO % 0.5 % (0.0-3.0); EOS % 0.3 % (1.5-5.0); GRAN # 3.55 (1.4-6.5); GRAN % 57.5 % (50.0-68.0); HEMATOCRIT 42.3 % (36.0-48.0); LYMPH # 2.1 (1.2-3.4); LYMPH % 33.9 % (22.0-35.0); MEAN CELL VOLUME 85.5 fl (80.0-105.0); MEAN CORPUSCULAR HEMOGLOBIN 29.9 pg (25.0-35.0); MEAN PLATELET VOLUME 9.4 fl (7.0-11.0); MONO # 0.5 (0.1-0.6); MONO % 7.8 % (1.0-6.0); RED CELL DISTRIBUTION WIDTH 14.4 % (11.5-14.5); WHITE BLOOD COUNT 6.2 10^3/ul (4.5-11.0)
[2017-01-15 23:47] VITALS: RESP 19; TEMP 98.9; O2SAT 97
[2017-01-16 00:09] VITALS: PULSE 91
--- NOTE | 2017-01-16 14:38 | CARD ---
APPROVED REPORT EKG Measurement Heart [id number] <Conclusion> Normal sinus rhythm Possible Left atrial enlargement Borderline ECG
== END 2017-01-16 00:09 | disposition left against medical advice (07) ==
LOC: ED 19:23
DX: G89.29 Other chronic pain (principal); M54.9 Dorsalgia, unspecified; M32.9 Systemic lupus erythematosus, unspecified

== ENCOUNTER 2017-01-17 14:14 | Emergency (ER) | payer MEDICAID ==
[2017-01-17 14:15] VITALS: BMI 27.4
[2017-01-17] MEDS ORDERED: Sodium Chloride 0.9% 1,000 ML IV STA (14:26)
[2017-01-17 14:42] LABS: BASO # 0.02 K/mm3 (0.0-2.0); BASO % 0.4 % (0.0-3.0); GRAN # 4.2 (1.4-6.5); GRAN % 76.4 % (50.0-68.0); HEMATOCRIT 46.4 % (36.0-48.0); LYMPH % 18.8 % (22.0-35.0); MEAN CELL VOLUME 85.9 fl (80.0-105.0); MEAN CORPUSCULAR HEMOGLOBIN 30.4 pg (25.0-35.0); MEAN CORPUSCULAR HGB CONC 35.3 g/dl (31.0-37.0); MEAN PLATELET VOLUME 9.4 fl (7.0-11.0); MONO # 0.2 (0.1-0.6); MONO % 4.4 % (1.0-6.0); RED CELL DISTRIBUTION WIDTH 14.1 % (11.5-14.5); WHITE BLOOD COUNT 5.5 10^3/ul (4.5-11.0)
[2017-01-17 14:44] VITALS: TEMP 98
[2017-01-17 16:04] LABS: ALB/GLOB RATIO 1.3 (1.1-1.8); ALKALINE PHOSPHATASE 99 U/L (38-126); ALT/SGPT 40 U/L (7-56); AST/SGOT 31 U/L (14-36); BILIRUBIN,TOTAL 1.2 mg/dL (0.2-1.3); BLOOD UREA NITROGEN 15 mg/dL (7-21); CALCIUM 9.6 mg/dL (8.4-10.5); CARBON DIOXIDE 22 mmol/L (21-33); CHLORIDE 105 mmol/L (98-107); GFR AFRICAN-AMERICAN > 60; GLUCOSE,RANDOM 111 mg/dL (70-110); POTASSIUM 4.1 mmol/L (3.6-5.0); SODIUM 140 mmol/L (132-148); TOTAL PROTEIN 8.2 g/dL (5.8-8.3)
[2017-01-17 16:07] LABS: VALPROIC ACID < 10 ug/mL (50.0-100.0)
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
[2017-01-17 16:22] LABS: CARBAMAZEPINE < 3 ug/mL (4.0-10.0)
[2017-01-17] MEDS ORDERED: Fosphenytoin 1,000 MG in Sodium Chloride 0.9% 50 ML IV STA (17:27)
[2017-01-17] MEDS ORDERED: levETIRAcetam 1,000 MG in Sodium Chloride 0.9% 100 ML IV ONE (17:28)
[2017-01-17 23:21] VITALS: BP 123/84; PULSE 90; RESP 19; O2SAT 99
--- NOTE | 2017-01-18 10:26 | CARD ---
APPROVED REPORT EKG Measurement Heart [id number] [place] 142P62 [id number] <Conclusion> Sinus tachycardia Otherwise normal ECG
== END 2017-01-17 20:45 | disposition home or self-care (01) ==
LOC: ED 14:14
DX: G40.909 Epilepsy, unspecified, not intractable, without status epilepticus (principal); E86.0 Dehydration; M32.9 Systemic lupus erythematosus, unspecified
CPT/HCPCS: 80053; 80156; 80164; 80185; 80320; 82550; 82948; 85025; 93005; 96360; 99285; J1953; J7040

== ENCOUNTER 2017-01-23 14:57 | Emergency (ER) | payer MEDICAID ==
[2017-01-23 14:57] VITALS: BMI 27.4
[2017-01-23 15:07] VITALS: BP 147/82; PULSE 101; RESP 18; TEMP 98.6; O2SAT 100
[2017-01-23] MEDS ORDERED: Sodium Chloride 0.9% 1,000 ML IV STA (15:33)
--- NOTE | 2017-01-23 15:45 | ED PDOC ---
Arrival/HPI - General Chief Complaint: Dizziness/Lightheaded Time Seen by Provider: 01/23/17 14:58 Historian: Patient - History of Present Illness Narrative History of Present Illness (Text): 01/23/17 15:55 56yo female with PMhx of seizure, chronic pain biba for dizziness and fall. Patient admits to a slip and fall yesterday, however states she doesn't know why she is here. Denies any somatic complaint. She have abrasion to her left forehead. She is not sure if she had LOC. Denies headache, nausea, focal weakness, abdominal pain, chest pain, SOB, any other complaint. Past Medical History - Provider Review Nursing Documentation Reviewed: Yes - Infectious Disease Hx of Infectious Diseases: None - Tetanus Immunization Tetanus Immunization: OTH - Past Medical History Past Medical History: No Previous - Cardiac Hx Cardiac Disorders: No - Pulmonary Hx Respiratory Disorders: No - Neurological Hx Neurological Disorder: Yes Hx Migraine: Yes Hx Seizures: Yes - HEENT Hx HEENT Disorder: No - Renal Hx Renal Disorder: No - Endocrine/Metabolic Hx Endocrine Disorders: Yes Hx Systemic Lupus Erythematosus: Yes - Hematological/Oncological Hx Blood Disorders: No - Integumentary Hx Dermatological Disorder: Yes Hx Psoriasis: Yes - Musculoskeletal/Rheumatological Hx Musculoskeletal Disorders: Yes Hx Arthritis: Yes - Gastrointestinal Hx Gastrointestinal Disorders: Yes Hx Gall Bladder Disease: Yes (stones) - Genitourinary/Gynecological Hx Genitourinary Disorders: No - Psychiatric Hx Psychophysiologic Disorder: Yes Hx Anxiety: Yes Hx Depression: Yes Hx Substance Use: No - Past Surgical History Past Surgical History: Non-Contributing - Surgical History Hx Cholecystectomy: Yes - Anesthesia Hx Anesthesia: Yes - Suicidal Assessment Feels Threatened In Home Enviroment: No Family/Social History - Physician Review Nursing Documentation Reviewed: Yes Family/Social History: Unknown Family HX Smoking Status: Never Smoked Hx Alcohol Use: No Hx Substance Use: No Hx Substance Use Treatment: No Allergies/Home Meds Allergies/Adverse Reactions: Allergies morphine Allergy (Verified 01/17/17 14:18) DIZZINESS phenytoin sodium [From Dilantin] Allergy (Verified 01/17/17 14:18) RASH phenytoin sodium extended [From Dilantin] Allergy (Verified 01/17/17 14:18) RASH quetiapine fumarate [From Seroquel] Allergy (Verified 01/17/17 14:18) RASH tramadol Allergy (Verified 01/17/17 14:18) RASH Review of Systems - Physician Review All systems were reviewed & negative as marked: Yes - Review of Systems Constitutional: Normal Eyes: Normal ENT: Normal Respiratory: Normal Cardiovascular: Normal Gastrointestinal: Normal Genitourinary Female: Normal Musculoskeletal: Normal Skin: Other (Abrasion ) Neurological: Dizziness Endocrine: Normal Hemo/Lymphatic: Normal Psychiatric: Normal Physical Exam Vital Signs Reviewed: Yes Vital Signs Temp Pulse Resp BP Pulse Ox 01/23/17 15:06 98.6 F 101 H 18 147/82 100 Temperature: Afebrile Blood Pressure: Normal Pulse: Regular Respiratory Rate: Normal Appearance: Positive for: Well-Appearing, Non-Toxic, Comfortable Pain Distress: None Mental Status: Positive for: Alert and Oriented X 3 Finger Stick Blood Glucose: 103 - Systems Exam Head: Present: Atraumatic, Normocephalic Pupils: Present: PERRL Extroacular Muscles: Present: EOMI Conjunctiva: Present: Normal Mouth: Present: Moist Mucous Membranes Neck: Present: Normal Range of Motion Respiratory/Chest: Present: Clear to Auscultation, Good Air Exchange. No: Respiratory Distress, Accessory Muscle Use Cardiovascular: Present: Regular Rate and Rhythm, Normal S1, S2. No: Murmurs Abdomen: Present: Normal Bowel Sounds. No: Tenderness, Distention, Peritoneal Signs Back: Present: Normal Inspection Upper Extremity: Present: Normal Inspection. No: Cyanosis, Edema Lower Extremity: Present: Normal Inspection. No: Edema Neurological: Present: GCS=15, CN II-XII Intact, Speech Normal, Motor Func Grossly Intact, Normal Sensory Function, Normal Cerebellar Funct, Gait Normal, Memory Normal, Normal 2Pt Descrimination, Other (No focal neurological deficit) Skin: Present: Warm, Dry, Normal Color, Laceration (Approximately 2.0cm linear laceration to left forehead). No: Rashes Psychiatric: Present: Alert, Oriented x 3, Normal Insight, Normal Concentration Medical Decision Making ED Course and Treatment: 01/23/17 15:45 EKG sinus tach @101bpm. No ST changes 01/23/17 16:00 PT presented for stated history. She was neurological intact with no focal deficit. She was ambulatory with a steady gait in ED. Lab and Head CT was ordered Wound will be cleaned and dressed. Per Nurse and on talking with the patient she declined any test in ED. Questing to go home. She was AAO x3 and in her right frame of mind to make informed decision. She was advised on the risk of head derangement, more falls, . she expressed understanding of these risk and still insisted to sign out AMA. She was advised to return to ED immediately if she change her mind. Otherwise to f/u with her PMD. - Medication Orders Current Medication Orders: Discontinued Medications Sodium Chloride (Sodium Chloride 0.9%) 1,000 mls @ 999 mls/hr IV .Q1H1M STA Stop: 01/23/17 16:33 Disposition/Present on Arrival - Present on Arrival Any Indicators Present on Arrival: No History of DVT/PE: No History of Uncontrolled Diabetes: No Urinary Catheter: No History of Decub. Ulcer: No History Surgical Site Infection Following: None - Disposition Have Diagnosis and Disposition been Completed?: Yes Diagnosis: Dizziness, Facial laceration Disposition: AGAINST MEDICAL ADVICE Disposition Time: 15:55 Patient Problems: Current Active Problems Problem Status Onset Anxiety Acute Facial laceration Acute Condition: FAIR Forms: [employer] (Swazi)
== END 2017-01-23 16:00 | disposition left against medical advice (07) ==
LOC: ED 14:57
DX: S01.81XA Laceration without foreign body of other part of head, initial encounter (principal); W01.0XXA Fall on same level from slipping, tripping and stumbling without subsequent striking against object, initial encounter; R42 Dizziness and giddiness; R56.9 Unspecified convulsions; M32.9 Systemic lupus erythematosus, unspecified

== ENCOUNTER 2017-01-23 16:22 | Emergency (ER) | payer MEDICAID ==
--- NOTE | 2017-01-23 16:26 | ED PDOC ---
Arrival/HPI - General Time Seen by Provider: 01/23/17 16:24 Historian: Patient, Other (RN) - History of Present Illness Narrative History of Present Illness (Text): 01/23/17 16:25 56yo female who signed out AMA brought back to ED for psych evaluation. Per the RN, patient threw herself off of a wheel chair, while in the ED lobby waiting for her ride home. The RN states patient became anxious, AAO x1. Patient denies SI/HI, hallucination. Notes that her last TD vaccine was last year. Past Medical History - Provider Review Nursing Documentation Reviewed: Yes - Infectious Disease Hx of Infectious Diseases: None - Tetanus Immunization Tetanus Immunization: OTH - Past Medical History Past Medical History: No Previous - Cardiac Hx Cardiac Disorders: No - Pulmonary Hx Respiratory Disorders: No - Neurological Hx Neurological Disorder: Yes Hx Migraine: Yes Hx Seizures: Yes - HEENT Hx HEENT Disorder: No - Renal Hx Renal Disorder: No - Endocrine/Metabolic Hx Endocrine Disorders: Yes Hx Systemic Lupus Erythematosus: Yes - Hematological/Oncological Hx Blood Disorders: No - Integumentary Hx Dermatological Disorder: Yes Hx Psoriasis: Yes - Musculoskeletal/Rheumatological Hx Musculoskeletal Disorders: Yes Hx Arthritis: Yes - Gastrointestinal Hx Gastrointestinal Disorders: Yes Hx Gall Bladder Disease: Yes (stones) - Genitourinary/Gynecological Hx Genitourinary Disorders: No - Psychiatric Hx Psychophysiologic Disorder: Yes Hx Anxiety: Yes Hx Depression: Yes Hx Substance Use: No - Past Surgical History Past Surgical History: Non-Contributing - Surgical History Hx Cholecystectomy: Yes - Anesthesia Hx Anesthesia: Yes - Suicidal Assessment Feels Threatened In Home Enviroment: No Family/Social History - Physician Review Nursing Documentation Reviewed: Yes Family/Social History: Unknown Family HX Smoking Status: Never Smoked Hx Alcohol Use: No Hx Substance Use: No Hx Substance Use Treatment: No Allergies/Home Meds Allergies/Adverse Reactions: Allergies morphine Allergy (Verified 01/17/17 14:18) DIZZINESS phenytoin sodium [From Dilantin] Allergy (Verified 01/17/17 14:18) RASH phenytoin sodium extended [From Dilantin] Allergy (Verified 01/17/17 14:18) RASH quetiapine fumarate [From Seroquel] Allergy (Verified 01/17/17 14:18) RASH tramadol Allergy (Verified 01/17/17 14:18) RASH Review of Systems - Physician Review All systems were reviewed & negative as marked: Yes - Review of Systems Constitutional: Normal Eyes: Normal ENT: Normal Respiratory: Normal Cardiovascular: Normal Gastrointestinal: Normal Genitourinary Female: Normal Musculoskeletal: Normal Skin: Normal Neurological: Normal Endocrine: Normal Hemo/Lymphatic: Normal Psychiatric: Anxiety Physical Exam Vital Signs Reviewed: Yes Vital Signs Temp Pulse Resp BP Pulse Ox 01/23/17 18:22 80 17 138/75 100 01/23/17 16:31 98.6 F 100 H 20 136/84 99 Temperature: Afebrile Blood Pressure: Normal Pulse: Regular Respiratory Rate: Normal Appearance: Positive for: Well-Appearing, Non-Toxic, Comfortable Pain Distress: None Mental Status: Positive for: Alert and Oriented X 3, Agitated - Systems Exam Head: Present: Atraumatic, Normocephalic Pupils: Present: PERRL Extroacular Muscles: Present: EOMI Conjunctiva: Present: Normal Mouth: Present: Moist Mucous Membranes Neck: Present: Normal Range of Motion Respiratory/Chest: Present: Clear to Auscultation, Good Air Exchange. No: Respiratory Distress, Accessory Muscle Use Cardiovascular: Present: Regular Rate and Rhythm, Normal S1, S2. No: Murmurs Abdomen: Present: Normal Bowel Sounds. No: Tenderness, Distention, Peritoneal Signs Back: Present: Normal Inspection Upper Extremity: Present: Normal Inspection. No: Cyanosis, Edema Lower Extremity: Present: Normal Inspection. No: Edema Neurological: Present: GCS=15, CN II-XII Intact, Speech Normal Skin: Present: Warm, Dry, Normal Color, Laceration (2.0cm lnear laceration to left forehead). No: Rashes Psychiatric: Present: Alert, Oriented x 3, Normal Insight, Normal Concentration , Anxious Medical Decision Making ED Course and Treatment: 01/23/17 17:46 Pt who singed out AMA brought back to Ed and placed under restraint for both her safety and the ED staff safety. Patient was agitated, appeared anxious, loud in ED. Ativan ordered She had small leukocyte in her Urinalysis, but asymptomatic. She will be placed on abx prophylactic for her laceration which indentally can also treat her UTI Psychiatric work up placed Head CT pending Wound cleansed and approximated with steri strip 01/23/17 19:14 PT was medially cleared for psych evaluation and was seen by VIVIANA Corbett. He DC with Dr. Lloyd and discharged pt home. - Lab Interpretations Lab Results: 01/23/17 17:15 01/23/17 17:15 Lab Results 01/23/17 18:00: Urine Color Yellow, Urine Appearance Sl cloudy, Urine pH 7.0, Ur Specific [place] 1.015, Urine Protein Trace H, Urine Glucose (UA) Negative, Urine Ketones 15 H, Urine Blood Negative, Urine Nitrate Negative, Urine Bilirubin Negative, Urine Urobilinogen 2.0 H, Ur Leukocyte Esterase Small H, Urine RBC 0 - 2, Urine WBC 2 - 5, Ur Epithelial Cells 1 - 3, Urine Bacteria Large, Coarse Granular Casts Small H 01/23/17 17:15: PT 12.5, INR 1.14 H, APTT 27.0 01/23/17 17:15: Alcohol, Quantitative < 10 01/23/17 17:15: Salicylates < 1 L, Acetaminophen < 10.0 L 01/23/17 17:15: Sodium 143, Potassium 3.3 L, Chloride 104, Carbon Dioxide 25, Anion Gap 17, BUN 11, Creatinine 0.6 L, Est GFR ( Amer) > 60, Est GFR ( Non-Af Amer) > 60, Random Glucose 108, Calcium 10.2, Total Bilirubin 1.0, AST 25 , ALT 29, Alkaline Phosphatase 105, Lactate Dehydrogenase 396, Total Creatine Kinase 67, Troponin I < 0.01, Total Protein 8.6 H, Albumin 4.8, Globulin 3.8, Albumin/Globulin Ratio 1.3 01/23/17 17:15: WBC 6.8 D, RBC 4.83, Hgb 14.5, Hct 41.4, MCV 85.7, MCH 30.0, MCHC 35.0, RDW 13.6, Plt Count 290, MPV 10.4, Gran % 61.2, Lymph % (Auto) 30.3, [place] % (Auto) 7.7 H, Eos % (Auto) 0.1 L, Baso % (Auto) 0.7, Gran # 4.15, Lymph # 2.1, [place] # 0.5, Eos # 0.0, Baso # 0.05 - RAD Interpretation Radiology Orders: 01/23/17 16:30 HEAD W/O CONTRAST [CT] Stat - Medication Orders Current Medication Orders: Discontinued Medications Lorazepam (Ativan) 2 mg IM ONCE ONE PRN Reason: Protocol Stop: 01/23/17 16:31 Last Admin: 01/23/17 16:46 Dose: 2 mg IM Administration Charges Document 01/23/17 16:46 AB (Rec: 01/23/17 16:46 AB [facility] [place]-[id number]) Injection Site MAR Injection Site Right Vastus Lateralis Charges for Administration # of IM Administrations 1 Disposition/Present on Arrival - Present on Arrival Any Indicators Present on Arrival: No History of DVT/PE: No History of Uncontrolled Diabetes: No Urinary Catheter: No History Surgical Site Infection Following: None - Disposition Have Diagnosis and Disposition been Completed?: Yes Diagnosis: Anxiety, Facial laceration, UTI (urinary tract infection) Disposition: HOME/ ROUTINE Disposition Time: 19:20 Patient Plan: Discharge Patient Problems: Current Active Problems Problem Status Onset Anxiety Acute Condition: STABLE Discharge Instructions (ExitCare): Laceration (ED), Anxiety (ED) Additional Instructions: Keep wound clean and dry Follow up with your Doctor Return to ED for any new symptoms Prescriptions: Cephalexin [Keflex] 500 mg PO TID #21 capsule Referrals: [facility] at [facility] [place] [Outside] - Follow up with primary
[2017-01-23 16:31] VITALS: BMI 28.3
[2017-01-23 16:44] VITALS: TEMP 98.6
[2017-01-23 17:33] LABS: BASO # 0.05 K/mm3 (0.0-2.0); BASO % 0.7 % (0.0-3.0); EOS % 0.1 % (1.5-5.0); GRAN # 4.15 (1.4-6.5); GRAN % 61.2 % (50.0-68.0); HEMATOCRIT 41.4 % (36.0-48.0); LYMPH # 2.1 (1.2-3.4); LYMPH % 30.3 % (22.0-35.0); MEAN CELL VOLUME 85.7 fl (80.0-105.0); MEAN PLATELET VOLUME 10.4 fl (7.0-11.0); MONO # 0.5 (0.1-0.6); MONO % 7.7 % (1.0-6.0); RED CELL DISTRIBUTION WIDTH 13.6 % (11.5-14.5); WHITE BLOOD COUNT 6.8 10^3/ul (4.5-11.0)
[2017-01-23 17:40] LABS: INR 1.14 (0.93-1.08)
[2017-01-23 17:42] LABS: ALB/GLOB RATIO 1.3 (1.1-1.8); ALKALINE PHOSPHATASE 105 U/L (38-126); ALT/SGPT 29 U/L (7-56); AST/SGOT 25 U/L (14-36); BLOOD UREA NITROGEN 11 mg/dL (7-21); CALCIUM 10.2 mg/dL (8.4-10.5); CARBON DIOXIDE 25 mmol/L (21-33); CHLORIDE 104 mmol/L (98-107); GFR AFRICAN-AMERICAN > 60; GLUCOSE,RANDOM 108 mg/dL (70-110); POTASSIUM 3.3 mmol/L (3.6-5.0); SODIUM 143 mmol/L (132-148); TOTAL PROTEIN 8.6 g/dL (5.8-8.3)
[2017-01-23 17:54] LABS: TROPONIN I < 0.01 ng/mL
[2017-01-23 18:29] LABS: URINE BILIRUBIN NEGATIVE (NEGATIVE); URINE BLOOD NEGATIVE (NEGATIVE); URINE GLUCOSE (UA) NEGATIVE (NEGATIVE); URINE KETONE 15 mg/dL (NEGATIVE); URINE LEUKOCYTE ESTERASE SMALL Leu/uL (NEGATIVE); URINE PROTEIN TRACE mg/dL (<30 mg/dL)
[2017-01-23 18:33] LABS: URINE APPEARANCE SL CLOUDY (CLEAR); URINE COLOR YELLOW (YELLOW)
[2017-01-23 18:34] LABS: URINE RBC 0 - 2 /hpf (0-2)
[2017-01-23 18:35] LABS: URINE BACTERIA LARGE (NEG)
[2017-01-23 18:37] VITALS: BP 138/75; PULSE 80; RESP 17; O2SAT 100
--- NOTE | 2017-01-23 20:06 | CT ---
EXAM: CT Head Without Intravenous Contrast EXAM DATE/TIME: 01/23/2017 4:30 PM CLINICAL HISTORY: The patient age is 56 years old and is female; Signs and symptoms; Dizziness Facility exam id and description: Ct heads head w/o contrast TECHNIQUE: Axial computed tomography images of the head/brain without intravenous contrast. All CT scans at this facility use one or more dose reduction techniques, viz.: automated exposure control; ma/kV adjustment per patient size (including targeted exams where dose is matched to indication; i.e. head); or iterative reconstruction technique. COMPARISON: CT - HEAD W/O CONTRAST 2016-02-23 17:02 FINDINGS: Artifacts: Motion artifact limits this study. Brain: The white-fry differentiation is preserved demonstrating no acute territorial type infarct. No acute intracranial hemorrhage is seen. Midline shift: There is no midline shift. Ventricles: No ventriculomegaly. Bones/joints: The calvarium demonstrates no evidence for a depressed fracture. Soft tissues: No acute abnormality. Sinuses: Unremarkable as visualized. No acute sinusitis. Mastoid air cells: No mastoid effusion. IMPRESSION: 1. No acute intracranial hemorrhage or acute territorial type infarct.
--- NOTE | 2017-01-24 10:01 | CARD ---
APPROVED REPORT EKG Measurement Heart [id number] <Conclusion> Sinus tachycardia Otherwise normal ECG No change
== END 2017-01-23 20:12 | disposition home or self-care (01) ==
LOC: ED 16:22
DX: N39.0 Urinary tract infection, site not specified (principal); F41.9 Anxiety disorder, unspecified; S01.81XA Laceration without foreign body of other part of head, initial encounter; X58.XXXA Exposure to other specified factors, initial encounter; M32.9 Systemic lupus erythematosus, unspecified
CPT/HCPCS: 70450; 80053; 80320; 80329; 81001; 82550; 83615; 84484; 85025; 85610; 85730; 87086; 93005; 96372; 99284; J2060

== ENCOUNTER 2017-06-20 14:47 | Emergency (ER) | payer MEDICAID ==
[2017-06-20 14:47] VITALS: BMI 28.3
[2017-06-20 14:58] VITALS: RESP 18; TEMP 98.5
[2017-06-20 16:00] LABS: GFR AFRICAN-AMERICAN > 60; GFR NON-AFRICAN AMERICAN > 60
[2017-06-20 16:07] LABS: BASO # 0.01 K/mm3 (0.0-2.0); BASO % 0.2 % (0.0-3.0); EOS # 0.1 (0.0-0.7); GRAN # 4.18 (1.4-6.5); GRAN % 69.6 % (50.0-68.0); HEMOGLOBIN 14.9 g/dL (12.0-16.0); LYMPH # 1.4 (1.2-3.4); LYMPH % 22.5 % (22.0-35.0); MEAN CELL VOLUME 87.1 fl (80.0-105.0); MEAN CORPUSCULAR HEMOGLOBIN 29.9 pg (25.0-35.0); MEAN CORPUSCULAR HGB CONC 34.3 g/dl (31.0-37.0); MEAN PLATELET VOLUME 10.3 fl (7.0-11.0); MONO # 0.4 (0.1-0.6); MONO % 6.7 % (1.0-6.0); RBC 4.98 10^6/uL (3.5-6.1); RED CELL DISTRIBUTION WIDTH 14.6 % (11.5-14.5)
[2017-06-20 16:09] LABS: ALB/GLOB RATIO 1.2 (1.1-1.8); ALBUMIN 4.2 g/dL (3.0-4.8); ALT/SGPT 22 U/L (7-56); AST/SGOT 29 U/L (14-36); BLOOD UREA NITROGEN 16 mg/dL (7-21)
[2017-06-20 16:24] LABS: TROPONIN I < 0.01 ng/mL
[2017-06-20 17:23] VITALS: BP 116/76; PULSE 101; O2SAT 100
--- NOTE | 2017-06-20 17:25 | ED PDOC ---
Arrival/HPI - General Chief Complaint: Chest Pain Time Seen by Provider: 06/20/17 14:48 Historian: Patient - History of Present Illness Narrative History of Present Illness (Text): 06/20/17 17:23 56 tear old female presents to the Emergency department complaining of sharp substernal chest pain that began early this morning. Patient also complains of a mild migraine headache. Patient denies any fever, chills, cough, shortness of breath, nausea, vomiting, diarrhea, urinary symptoms, back pain, neck pain, dizziness, recent travel, or any other complaints. Time/Duration: Other (less than 24 hours) Symptom Onset: Sudden Symptom Course: Unchanged Activities at Onset: Rest Context: Home Past Medical History - Provider Review Nursing Documentation Reviewed: Yes - Infectious Disease Hx of Infectious Diseases: None - Tetanus Immunization Tetanus Immunization: OTH - Past Medical History Past Medical History: No Previous - Cardiac Hx Cardiac Disorders: No - Pulmonary Hx Respiratory Disorders: No - Neurological Hx Neurological Disorder: Yes Hx Migraine: Yes Hx Seizures: Yes - HEENT Hx HEENT Disorder: No - Renal Hx Renal Disorder: No - Endocrine/Metabolic Hx Endocrine Disorders: Yes Hx Systemic Lupus Erythematosus: Yes - Hematological/Oncological Hx Blood Disorders: No - Integumentary Hx Dermatological Disorder: Yes Hx Psoriasis: Yes - Musculoskeletal/Rheumatological Hx Musculoskeletal Disorders: Yes Hx Arthritis: Yes - Gastrointestinal Hx Gastrointestinal Disorders: Yes Hx Gall Bladder Disease: Yes (stones) - Genitourinary/Gynecological Hx Genitourinary Disorders: No - Psychiatric Hx Psychophysiologic Disorder: Yes Hx Anxiety: Yes Hx Depression: Yes Hx Substance Use: No - Past Surgical History Past Surgical History: Non-Contributing - Surgical History Hx Cholecystectomy: Yes - Anesthesia Hx Anesthesia: Yes - Suicidal Assessment Feels Threatened In Home Enviroment: No Family/Social History - Physician Review Nursing Documentation Reviewed: Yes Family/Social History: Unknown Family HX Smoking Status: Never Smoked Hx Alcohol Use: No Hx Substance Use: No Hx Substance Use Treatment: No Allergies/Home Meds Allergies/Adverse Reactions: Allergies morphine Allergy (Verified 06/20/17 16:08) DIZZINESS phenytoin sodium [From Dilantin] Allergy (Verified 06/20/17 16:08) RASH phenytoin sodium extended [From Dilantin] Allergy (Verified 06/20/17 16:08) RASH quetiapine fumarate [From Seroquel] Allergy (Verified 06/20/17 16:08) RASH tramadol Allergy (Verified 06/20/17 16:08) RASH Review of Systems - Physician Review All systems were reviewed & negative as marked: Yes - Review of Systems Constitutional: absent: Fevers, Night Sweats Respiratory: absent: SOB, Cough Cardiovascular: Chest Pain Gastrointestinal: absent: Diarrhea, Nausea, Vomiting Genitourinary Female: absent: Dysuria Musculoskeletal: absent: Back Pain, Neck Pain Neurological: Headache. absent: Dizziness Physical Exam Vital Signs Reviewed: Yes Vital Signs Temp Pulse Resp BP Pulse Ox 06/20/17 17:23 101 H 18 116/76 100 06/20/17 14:57 98.5 F 116 H 18 145/78 97 Temperature: Afebrile Blood Pressure: Normal Pulse: Tachycardic Respiratory Rate: Normal Appearance: Positive for: Well-Appearing, Non-Toxic, Comfortable Pain Distress: None Mental Status: Positive for: Alert and Oriented X 3 - Systems Exam Head: Present: Atraumatic, Normocephalic Pupils: Present: PERRL Extroacular Muscles: Present: EOMI Conjunctiva: Present: Normal Mouth: Present: Moist Mucous Membranes Neck: Present: Normal Range of Motion Respiratory/Chest: Present: Clear to Auscultation, Good Air Exchange. No: Respiratory Distress, Accessory Muscle Use Cardiovascular: Present: Regular Rate and Rhythm, Normal S1, S2. No: Murmurs Abdomen: Present: Normal Bowel Sounds. No: Tenderness, Distention, Peritoneal Signs Back: Present: Normal Inspection Upper Extremity: Present: Normal Inspection. No: Cyanosis, Edema Lower Extremity: Present: Normal Inspection. No: Edema Neurological: Present: GCS=15, CN II-XII Intact, Speech Normal Skin: Present: Warm, Dry, Normal Color. No: Rashes Psychiatric: Present: Alert, Oriented x 3, Normal Insight, Normal Concentration Medical Decision Making ED Course and Treatment: 06/20/17 17:26 Impression: 56 year old female presents to the Emergency department complaining of chest pain that began this morning. Plan: -- Chest xray -- EKG -- Urine drug screen -- Reglan -- Reassess and disposition Progress Notes: - Lab Interpretations Lab Results: 06/20/17 15:36 06/20/17 15:36 Lab Results 06/20/17 15:36: Sodium 141, Potassium 4.9, Chloride 105, Carbon Dioxide 29, Anion Gap 12, BUN 16, Creatinine 0.7, Est GFR ( Amer) > 60, Est GFR (Non- Af Amer) > 60, Random Glucose 111 H, Calcium 10.0, Magnesium 2.0, Total Bilirubin 0.4, AST 29, ALT 22, Alkaline Phosphatase 82, Lactate Dehydrogenase 546, Total Creatine Kinase 53, Troponin I < 0.01, Total Protein 7.8, Albumin 4.2 , Globulin 3.6, Albumin/Globulin Ratio 1.2 06/20/17 15:36: WBC 6.0, RBC 4.98, Hgb 14.9, Hct 43.4, MCV 87.1, MCH 29.9, MCHC 34.3, RDW 14.6 H, Plt Count 287, MPV 10.3, Gran % 69.6 H, Lymph % (Auto) 22.5, [place] % (Auto) 6.7 H, Eos % (Auto) 1.0 L, Baso % (Auto) 0.2, Gran # 4.18, Lymph # (Auto) 1.4, [place] # (Auto) 0.4, Eos # (Auto) 0.1, Baso # (Auto) 0.01 - RAD Interpretation Radiology Orders: 06/20/17 15:03 CHEST PORTABLE [RAD] Stat - EKG Interpretation EKG Interpretation (Text): 06/20/17 EKG: Ordered, reviewed, and independently interpreted the EKG. Rate : 110 BPM Rhythm : Sinus tachycardia Interpretation : Normal axis, normal intervals. Interpreted by ED Physician: Yes Type: 12 lead EKG - Medication Orders Current Medication Orders: Discontinued Medications Metoclopramide HCl (Reglan) 10 mg IVP STAT STA Stop: 06/20/17 16:50 Last Admin: 06/20/17 17:15 Dose: 10 mg IVP Administration Document 06/20/17 17:15 GMD (Rec: 06/20/17 17:15 GMD [id number]) Charges for Administration # of IVP Administrations 1 - Scribe Statement The provider has reviewed the documentation as recorded by the Scribe Baudilio Espinosa Provider Scribe Attestation: All medical record entries made by the Scribe were at my direction and personally dictated by me. I have reviewed the chart and agree that the record accurately reflects my personal performance of the history, physical exam, medical decision making, and the department course for this patient. I have also personally directed, reviewed, and agree with the discharge instructions and disposition. Disposition/Present on Arrival - Present on Arrival Any Indicators Present on Arrival: No History of DVT/PE: No History of Uncontrolled Diabetes: No Urinary Catheter: No History of Decub. Ulcer: No History Surgical Site Infection Following: None - Disposition Have Diagnosis and Disposition been Completed?: Yes Diagnosis: Migraine, Non-cardiac chest pain Disposition: HOME/ ROUTINE Disposition Time: 16:20 Condition: GOOD Discharge Instructions (ExitCare): Chest Pain That Is Not Caused by the Heart ( DC) Additional Instructions: Thank you for letting us take care of you today. The emergency medical care you received today was directed at your acute symptoms. If you were prescribed any medication, please fill it and take as directed. It may take several days for your symptoms to resolve. Return to the Emergency Department if your symptoms worsen, do not improve, or if you have any other problems. Please contact your doctor or call one of the physicians/clinics you have been referred to that are listed on the Patient Visit Information form that is included in your discharge packet. Bring any paperwork you were given at discharge with you along with any medications you are taking to your follow up visit. Our treatment cannot replace ongoing medical care by a primary care provider (PCP) outside of the emergency department. Thank you for allowing the [email or web address] team to be part of your care today. Follow up with your primary doctor in 3-4 days for re-evaluation and further management. Referrals: Nancy Welch MD [Primary Care Provider] - Follow up with primary Forms: [employer] (Telugu)
--- NOTE | 2017-06-21 07:48 | RAD ---
HISTORY: chest pain COMPARISON: Portable chest 10/30/2016. FINDINGS: LUNGS: No active pulmonary disease. PLEURA: No significant pleural effusion identified, no pneumothorax apparent. CARDIOVASCULAR: Normal. OSSEOUS STRUCTURES: No significant abnormalities. VISUALIZED UPPER ABDOMEN: Normal. OTHER FINDINGS: None. IMPRESSION: No interval acute cardiopulmonary disease appreciated.
--- NOTE | 2017-06-21 10:15 | CARD ---
APPROVED REPORT EKG Measurement Heart [id number] [place] [id number] <Conclusion> Sinus tachycardia Otherwise normal ECG
== END 2017-06-20 17:32 | disposition home or self-care (01) ==
LOC: ED 14:47
DX: G43.909 Migraine, unspecified, not intractable, without status migrainosus (principal); R07.89 Other chest pain; M32.9 Systemic lupus erythematosus, unspecified
CPT/HCPCS: 71045; 80053; 82550; 83615; 83735; 84484; 85025; 93005; 96374; 99285; J2765

== ENCOUNTER 2017-07-16 14:25 | Observation (INO) | payer MEDICAID ==
[2017-07-16 14:36] VITALS: BMI 27.4
[2017-07-16] MEDS ORDERED: Sodium Chloride 0.9% 1,000 ML IV STA (14:43)
--- NOTE | 2017-07-16 14:47 | ED PDOC ---
Arrival/HPI - General Time Seen by Provider: 07/16/17 14:34 Historian: Patient Past Medical History - Provider Review Nursing Documentation Reviewed: Yes - Travel History Have you recently traveled outside [place] w/in the past 3 mons?: No - Infectious Disease Hx of Infectious Diseases: None - Tetanus Immunization Tetanus Immunization: OTH - Past Medical History Past Medical History: No Previous - Cardiac Hx Cardiac Disorders: No - Pulmonary Hx Respiratory Disorders: No - Neurological Hx Neurological Disorder: Yes Hx Migraine: Yes Hx Seizures: Yes - HEENT Hx HEENT Disorder: No - Renal Hx Renal Disorder: No - Endocrine/Metabolic Hx Endocrine Disorders: Yes Hx Systemic Lupus Erythematosus: Yes - Hematological/Oncological Hx Blood Disorders: No - Integumentary Hx Dermatological Disorder: Yes Hx Psoriasis: Yes - Musculoskeletal/Rheumatological Hx Musculoskeletal Disorders: Yes Hx Arthritis: Yes - Gastrointestinal Hx Gastrointestinal Disorders: Yes Hx Gall Bladder Disease: Yes (stones) - Genitourinary/Gynecological Hx Genitourinary Disorders: No - Psychiatric Hx Psychophysiologic Disorder: Yes Hx Anxiety: Yes Hx Depression: Yes Hx Substance Use: No - Past Surgical History Past Surgical History: Non-Contributing - Surgical History Hx Cholecystectomy: Yes - Anesthesia Hx Anesthesia: Yes - Suicidal Assessment Feels Threatened In Home Enviroment: No Family/Social History - Physician Review Nursing Documentation Reviewed: Yes Family/Social History: No Known Family HX Smoking Status: Never Smoked Hx Alcohol Use: No Hx Substance Use: No Hx Substance Use Treatment: No Allergies/Home Meds Allergies/Adverse Reactions: Allergies morphine Allergy (Verified 06/20/17 16:08) DIZZINESS phenytoin sodium [From Dilantin] Allergy (Verified 06/20/17 16:08) RASH phenytoin sodium extended [From Dilantin] Allergy (Verified 06/20/17 16:08) RASH quetiapine fumarate [From Seroquel] Allergy (Verified 06/20/17 16:08) RASH tramadol Allergy (Verified 06/20/17 16:08) RASH Review of Systems - Review of Systems Constitutional: Normal Eyes: Normal ENT: Normal Respiratory: Normal Cardiovascular: Chest Pain Gastrointestinal: Normal Genitourinary Female: Normal Musculoskeletal: Normal Skin: Normal Neurological: Normal Endocrine: Normal Hemo/Lymphatic: Normal Psychiatric: Normal Physical Exam Vital Signs Reviewed: Yes Vital Signs Temp Pulse Resp BP Pulse Ox 07/16/17 18:00 99 H 18 118/69 100 07/16/17 16:26 110 H 18 135/79 98 07/16/17 14:35 98.5 F 96 H 18 118/63 100 Temperature: Afebrile Blood Pressure: Normal Pulse: Regular Respiratory Rate: Normal Appearance: Positive for: Well-Appearing, Non-Toxic, Comfortable Pain Distress: None Mental Status: Positive for: Alert and Oriented X 3 - Systems Exam Head: Present: Atraumatic, Normocephalic Pupils: Present: PERRL Extroacular Muscles: Present: EOMI Conjunctiva: Present: Normal Ears: Present: Normal Mouth: Present: Moist Mucous Membranes Pharnyx: Present: Normal Nose (External): Present: Atraumatic Nose (Internal): Present: Normal Inspection Neck: Present: Normal Range of Motion Respiratory/Chest: Present: Clear to Auscultation, Good Air Exchange Cardiovascular: Present: Regular Rate and Rhythm Abdomen: No: Tenderness, Distention, Normal Bowel Sounds, Peritoneal Signs, Rebound, Guarding, McBurney's Point Tender, Rovsing's Sign Present, Hernias, Feeding Tubes, Ostomy Tubes, Mass/Organomegaly, Scars, Other Back: Present: Normal Inspection Upper Extremity: Present: Normal Inspection Lower Extremity: Present: Normal Inspection Neurological: Present: GCS=15, CN II-XII Intact, Speech Normal, Motor Func Grossly Intact Skin: Present: Warm, Normal Color Psychiatric: Present: Alert, Oriented x 3, Normal Insight, Normal Concentration Medical Decision Making ED Course and Treatment: you were treated in the ED today for chest pain and otherwise without any nausea /vomiting/headache/dizziness/difficulty breathing/abdomen pain/numbness/tingling /loss of limb function/pain with urination/drug use/thoughts to harm yourself or others or hallucinations. You were otherwise breathing easily, pink moist lips, talking easily, good strength/sensation, alert/oriented, walking easily, clear lungs, no abdomen tenderness, no fever temp 98.5, stable heart rate 96, stable breathing rate 18, excellent oxygen level 100% room air, stable blood pressure 118/63 which we recommend repeat in 2-3 days primary care office to determine further treatment, you have blood tests no infection count 5, stable blood level hemoglobin 14/platelets 290, stable chemistry, heart blood test negative times two, heart failure test negative 50, radiology chest xray no active disease, ultrasound of both lower legs negative for deep vein clot, ECG sinus tachycardia and similar times two, observation done in the ED with improvement, counselled to monitor symptoms and thus discharged home. 1. Recommend follow-up primary care 1-2 days to review symptoms, referral to cardiology to review your symptoms. 4. If any worsening pain, fever, chills, nausea, vomiting, difficulty breathing, numbness, loss of limb function, pain with urination or any medical condition then return to the ED. Reassessment Condition: Re-examined, Improved - Lab Interpretations Lab Results: 07/16/17 15:30 07/16/17 15:30 Lab Results 07/16/17 21:53: Troponin I < 0.01 07/16/17 15:30: Sodium 145, Potassium 4.3, Chloride 106, Carbon Dioxide 27, Anion Gap 16, BUN 17, Creatinine 0.7, Est GFR ( Amer) > 60, Est GFR (Non- Af Amer) > 60, Random Glucose 97, Calcium 9.5, Magnesium 1.8, Total Bilirubin 0.4, AST 24, ALT 26, Alkaline Phosphatase 81, Lactate Dehydrogenase 414, Total Creatine Kinase 62, Troponin I < 0.01, NT-Pro-B Natriuret Pep 50.4, Total Protein 7.6, Albumin 4.3, Globulin 3.2, Albumin/Globulin Ratio 1.3, Lipase 110 07/16/17 15:30: PT 11.7, INR 1.03, APTT 32.7 07/16/17 15:30: WBC 5.2, RBC 4.86, Hgb 14.5, Hct 42.5, MCV 87.4, MCH 29.8, MCHC 34.1, RDW 14.7 H, Plt Count 290, MPV 9.7, Gran % 64.2, Lymph % (Auto) 27.9, Parke % (Auto) 5.8, Eos % (Auto) 1.7, Baso % (Auto) 0.4, Gran # 3.31, Lymph # ( Auto) 1.4, Parke # (Auto) 0.3, Eos # (Auto) 0.1, Baso # (Auto) 0.02 I have reviewed the lab results: Yes - RAD Interpretation Narrative RAD Interpretations (Text): 07/16/17 17:28 Chest X-ray reviewed by radiologist, shows: LUNGS: The lungs are well inflated and clear. PLEURA: No significant pleural effusion identified, no pneumothorax apparent. CARDIOVASCULAR: Normal. OSSEOUS STRUCTURES: No significant abnormalities. VISUALIZED UPPER ABDOMEN: Normal. OTHER FINDINGS: None. IMPRESSION: No active pulmonary disease. Radiology Orders: 07/16/17 DUPLEX LOWER EXTRM VEIN BILAT [US] Stat 07/16/17 14:43 CHEST PORTABLE [RAD] Stat Customer Care Manager: Radiologist - EKG Interpretation Interpreted by ED Physician: Yes (sinus tachycardia) - Medication Orders Current Medication Orders: Discontinued Medications Sodium Chloride (Sodium Chloride 0.9%) 1,000 mls @ 999 mls/hr IV .Q1H1M STA Stop: 07/16/17 15:43 Last Admin: 07/16/17 15:36 Dose: 999 mls/hr eMAR Start Stop Document 07/16/17 15:36 EWO (Rec: 07/16/17 15:37 EWO [id number]) Intravenous Solution Start Date 07/16/17 Start Time 15:37 End Date 07/16/17 End time 16:37 Total Infusion Time 60 Disposition/Present on Arrival - Present on Arrival Any Indicators Present on Arrival: No History of DVT/PE: No History of Uncontrolled Diabetes: No Urinary Catheter: No History Surgical Site Infection Following: None - Disposition Have Diagnosis and Disposition been Completed?: Yes Diagnosis: Anxiety, Chest pain Disposition: HOME/ ROUTINE Disposition Time: 22:27 Patient Plan: Discharge Condition: IMPROVED Discharge Instructions (ExitCare): Chest Pain (ED) Additional Instructions: you were treated in the ED today for chest pain and otherwise without any nausea /vomiting/headache/dizziness/difficulty breathing/abdomen pain/numbness/tingling /loss of limb function/pain with urination/drug use/thoughts to harm yourself or others or hallucinations. You were otherwise breathing easily, pink moist lips, talking easily, good strength/sensation, alert/oriented, walking easily, clear lungs, no abdomen tenderness, no fever temp 98.5, stable heart rate 96, stable breathing rate 18, excellent oxygen level 100% room air, stable blood pressure 118/63 which we recommend repeat in 2-3 days primary care office to determine further treatment, you have blood tests no infection count 5, stable blood level hemoglobin 14/platelets 290, stable chemistry, heart blood test negative times two, heart failure test negative 50, radiology chest xray no active disease, ultrasound of both lower legs negative for deep vein clot, ECG sinus tachycardia and similar times two, observation done in the ED with improvement, counselled to monitor symptoms and thus discharged home. 1. Recommend follow-up primary care 1-2 days to review symptoms, get final ultrasound report, referral to cardiology to review your symptoms. 4. If any worsening pain, fever, chills, nausea, vomiting, difficulty breathing, numbness , loss of limb function, pain with urination or any medical condition then return to the ED. Referrals: Nancy Welch MD [Primary Care Provider] - Follow up with primary
[2017-07-16 15:43] LABS: BASO # 0.02 K/mm3 (0.0-2.0); BASO % 0.4 % (0.0-3.0); EOS # 0.1 (0.0-0.7); EOS % 1.7 % (1.5-5.0); GRAN # 3.31 (1.4-6.5); GRAN % 64.2 % (50.0-68.0); HEMOGLOBIN 14.5 g/dL (12.0-16.0); LYMPH # 1.4 (1.2-3.4); LYMPH % 27.9 % (22.0-35.0); MEAN CELL VOLUME 87.4 fl (80.0-105.0); MEAN CORPUSCULAR HEMOGLOBIN 29.8 pg (25.0-35.0); MEAN CORPUSCULAR HGB CONC 34.1 g/dl (31.0-37.0); MEAN PLATELET VOLUME 9.7 fl (7.0-11.0); MONO # 0.3 (0.1-0.6); MONO % 5.8 % (1.0-6.0); RBC 4.86 10^6/uL (3.5-6.1); RED CELL DISTRIBUTION WIDTH 14.7 % (11.5-14.5); WHITE BLOOD COUNT 5.2 10^3/ul (4.5-11.0)
[2017-07-16 15:52] LABS: ALB/GLOB RATIO 1.3 (1.1-1.8); ALBUMIN 4.3 g/dL (3.0-4.8); ALT/SGPT 26 U/L (7-56); AST/SGOT 24 U/L (14-36); BLOOD UREA NITROGEN 17 mg/dL (7-21); CALCIUM 9.5 mg/dL (8.4-10.5); GFR AFRICAN-AMERICAN > 60; GFR NON-AFRICAN AMERICAN > 60; LIPASE 110 U/L (23-300)
--- NOTE | 2017-07-16 16:03 | RAD ---
HISTORY: 56yoF chest pain COMPARISON: 06/20/2017. FINDINGS: LUNGS: The lungs are well inflated and clear. PLEURA: No significant pleural effusion identified, no pneumothorax apparent. CARDIOVASCULAR: Normal. OSSEOUS STRUCTURES: No significant abnormalities. VISUALIZED UPPER ABDOMEN: Normal. OTHER FINDINGS: None. IMPRESSION: No active pulmonary disease.
[2017-07-16 16:04] LABS: B-TYPE NATRIURETIC PEPTIDE 50.4 pg/mL (0-450); TROPONIN I < 0.01 ng/mL
[2017-07-16 16:11] LABS: INR 1.03 (0.93-1.08); PARTIAL THROMBOPLASTIN TIME 32.7 Seconds (25.1-36.5); PROTHROMBIN TIME 11.7 SECONDS (9.4-12.5)
--- NOTE | 2017-07-16 19:07 | US ---
HISTORY: Leg pain and swelling. Evaluate for DVT PHYSICIAN(S): Gene Cantor MD. TECHNIQUE: Duplex sonography and color-flow Doppler with graded compression were used to evaluate the deep venous systems of both lower extremities. FINDINGS: The visualized deep venous systems of both lower extremities are sonographically normal and compressible. Normal wave forms and augmentation are seen. There is no sonographic evidence for deep venous thrombosis in the visualized segments of both lower extremities. IMPRESSION: No sonographic evidence for deep venous thrombosis in the visualized segments of both lower extremities.
--- NOTE | 2017-07-16 19:25 | CARD ---
APPROVED REPORT EKG Measurement Heart [id number] CT 140P54 [id number] <Conclusion> Sinus tachycardia Possible Left atrial enlargement Borderline ECG
--- NOTE | 2017-07-17 01:21 | CP.PCM.HP ---
History of Present Illness - History of Present Illness History of Present Illness: Marifer Galvez, PGY1, H&P for Dr Mireya Hook: CC: urinary incontinence x 6 months 56 year old female poor historian, with PMH noncompliance, frequent flyer to [facility] ED, low back pain, seizure disorder, arthritis, anxiety, depression, presents for urinary incontinence for past 6 months. Pt states that her urine is foul smelling, has suprapubic pain and diffuse abdominal pain. With a history of low back pain, she states that she is unable to ambulate for past 5- 6 days. Her "cannot take care of her." And she would thus want to be admitted to [facility] to be treated and then go home. Denies seizure like activity, bowel incontinence, saddle anesthesia, sob, diaphoresis, dyspepsia, fever, chills, numbness/tingling collin her legs, headache, vision changes, neck pain. Reports mild nausea and vague left sided chest pain. In ED, afebrile with stable vitals. cbc, cmp unremarkable. EKG shows sinus tachycardia 108, no ST/T wave abnormalities. trops negx2. LE US neg for DVT. CXR neg for infiltrates. 12 point ROS as per HPI, otherwise negative. PMH: Migraines, low back pain, SLE, seizure disorder, opiate dependence, arthritis, anxiety, depression, noncompliance PSH: Unclear All: morphine (vomiting), seroquel, tramadol Family Hx: Noncontributory Social Hx: On Disability (for low back pain and migraines), Denies tobacco/etoh/ illicit drug use. Home Medications: See MAR Present on Admission - Present on Admission Any Indicators Present on Admission: No History of DVT/PE: No History of Uncontrolled Diabetes: No Urinary Catheter: No Decubitus Ulcer Present: No Review of Systems - Review of Systems All systems: reviewed and no additional remarkable complaints except Review of Systems: as per HPI Past Patient History - Infectious Disease Hx of Infectious Diseases: None - Tetanus Immunizations Tetanus Immunization: OTH - Past Social History Smoking Status: Never Smoked - CARDIAC Hx Cardiac Disorders: No - PULMONARY Hx Respiratory Disorders: No - NEUROLOGICAL Hx Neurological Disorder: Yes Hx Migraine: Yes Hx Seizures: Yes - HEENT Hx HEENT Problems: No - RENAL Hx Chronic Kidney Disease: No - ENDOCRINE/METABOLIC Hx Endocrine Disorders: Yes Hx Systemic Lupus Erythematosus: Yes - HEMATOLOGICAL/ONCOLOGICAL Hx Blood Disorders: No - INTEGUMENTARY Hx Dermatological Problems: Yes Hx Psoriasis: Yes - MUSCULOSKELETAL/RHEUMATOLOGICAL Hx Musculoskeletal Disorders: Yes Hx Arthritis: Yes - GASTROINTESTINAL Hx Gastrointestinal Disorders: Yes Hx Gall Bladder Disease: Yes (stones) - GENITOURINARY/GYNECOLOGICAL Hx Genitourinary Disorders: No - PSYCHIATRIC Hx Psychophysiologic Disorder: Yes Hx Anxiety: Yes Hx Depression: Yes Hx Substance Use: No - SURGICAL HISTORY Hx Cholecystectomy: Yes - ANESTHESIA Hx Anesthesia: Yes Meds Allergies/Adverse Reactions: Allergies Allergy/AdvReac Type Severity Reaction Status Date / Time morphine Allergy DIZZINESS Verified 06/20/17 16:08 phenytoin sodium Allergy RASH Verified 06/20/17 16:08 [From Dilantin] phenytoin sodium extended Allergy RASH Verified 06/20/17 16:08 [From Dilantin] quetiapine fumarate Allergy RASH Verified 06/20/17 16:08 [From Seroquel] tramadol Allergy RASH Verified 06/20/17 16:08 Physical Exam - Constitutional Appears: Non-toxic, No Acute Distress, Unkempt, Older Than Stated Age, Agitated - Head Exam Head Exam: ATRAUMATIC, NORMOCEPHALIC - Eye Exam Eye Exam: EOMI, PERRL. absent: Conjunctival injection, Nystagmus, Periorbital swelling, Scleral icterus Pupil Exam: NORMAL ACCOMODATION, PERRL. absent: Fixed, Irregular, Miosis, Mydriatic, Unequal - ENT Exam ENT Exam: Mucous Membranes Dry - Neck Exam Neck exam: Positive for: Full Rom. Negative for: Lymphadenopathy - Respiratory Exam Respiratory Exam: Clear to Auscultation Bilateral, NORMAL BREATHING PATTERN. absent: Accessory Muscle Use, Chest Wall Tenderness, Rales, Rhonchi, Wheezes, Stridor - Cardiovascular Exam Cardiovascular Exam: RRR, +S1, +S2. absent: Tachycardia, Systolic Murmur - GI/Abdominal Exam GI & Abdominal Exam: Normal Bowel Sounds, Soft, Tenderness (suprapubic, diffuse) . absent: Distended, Firm, Guarding, Mass, Rebound, Rigid Additional comments: obese, rounded abdomen - Extremities Exam Extremities exam: Positive for: normal inspection. Negative for: calf tenderness, pedal edema - Back Exam Back exam: NORMAL INSPECTION, paraspinal tenderness. absent: CVA tenderness (L) , CVA tenderness (R), muscle spasm, rash noted, vertebral tenderness - Neurological Exam Neurological exam: Alert, Oriented x3 - Psychiatric Exam Psychiatric exam: Agitated, Anxious - Skin Skin Exam: Dry, Normal Color, Warm Results - Vital Signs Recent Vital Signs: Last Vital Signs Temp 98.5 F 07/16/17 14:35 Pulse 97 H 07/16/17 23:31 Resp 18 07/16/17 23:31 BP 130/73 07/16/17 23:31 Pulse Ox 98 07/16/17 23:31 - Labs Result Diagrams: 07/16/17 15:30 07/16/17 15:30 Labs: Laboratory Results - last 24 hr 07/16/17 07/16/17 07/16/17 15:30 15:30 15:30 WBC 5.2 RBC 4.86 Hgb 14.5 Hct 42.5 MCV 87.4 MCH 29.8 MCHC 34.1 RDW 14.7 H Plt Count 290 MPV 9.7 Gran % 64.2 Lymph % (Auto) 27.9 Preble % (Auto) 5.8 Eos % (Auto) 1.7 Baso % (Auto) 0.4 Gran # 3.31 Lymph # (Auto) 1.4 Preble # (Auto) 0.3 Eos # (Auto) 0.1 Baso # (Auto) 0.02 PT 11.7 INR 1.03 APTT 32.7 Sodium 145 Potassium 4.3 Chloride 106 Carbon Dioxide 27 Anion Gap 16 BUN 17 Creatinine 0.7 Est GFR ( Amer) > 60 Est GFR (Non-Af Amer) > 60 Random Glucose 97 Calcium 9.5 Magnesium 1.8 Total Bilirubin 0.4 AST 24 ALT 26 Alkaline Phosphatase 81 Lactate Dehydrogenase 414 Total Creatine Kinase 62 Troponin I < 0.01 NT-Pro-B Natriuret Pep 50.4 Total Protein 7.6 Albumin 4.3 Globulin 3.2 Albumin/Globulin Ratio 1.3 Lipase 110 07/16/17 21:53 WBC RBC Hgb Hct MCV MCH MCHC RDW Plt Count MPV Gran % Lymph % (Auto) Preble % (Auto) Eos % (Auto) Baso % (Auto) Gran # Lymph # (Auto) Preble # (Auto) Eos # (Auto) Baso # (Auto) PT INR APTT Sodium Potassium Chloride Carbon Dioxide Anion Gap BUN Creatinine Est GFR ( Amer) Est GFR (Non-Af Amer) Random Glucose Calcium Magnesium Total Bilirubin AST ALT Alkaline Phosphatase Lactate Dehydrogenase Total Creatine Kinase Troponin I < 0.01 NT-Pro-B Natriuret Pep Total Protein Albumin Globulin Albumin/Globulin Ratio Lipase Assessment & Plan - Assessment and Plan (Free Text) Assessment: 56 year old female poor historian, with PMH noncompliance, low back pain, seizure disorder, arthritis, anxiety, depression, presents for cp, urinary incontinence: Chest pain: r/o ACS vs malingering - initial EKG HR [address]/T wave changes. QTc 407ms. - trops negx2. F/u 3rd trop and EKG in AM - TSH, lipid panel, HgbA1c - Social work referral - Remote tele Urinary incontinence/suprapubic pain: 2/2 UTI vs stress incontinence vs overactive bladder incontinence - F/u UA, urine culture - Bladder scan - Dr Leiva consulted. F/u recs. - toradol prn Hx of seizure disorder: likely noncompliant with meds - Dilantin level - home dilantin PPX: pepcid, scds Diet: HHD Discussed with Dr Mireya Hook. - Date & Time Date: 07/17/17 Time:
[2017-07-17 01:29] LABS: URINE BILIRUBIN NEGATIVE (NEGATIVE); URINE BLOOD TRACE-INTACT (NEGATIVE); URINE GLUCOSE (UA) NEGATIVE (NEGATIVE); URINE LEUKOCYTE ESTERASE MODERATE Leu/uL (NEGATIVE); URINE PROTEIN NEGATIVE mg/dL (<30 mg/dL); URINE UROBILINOGEN 0.2 E.U./dL (<1 E.U./dL)
[2017-07-17 01:30] LABS: URINE APPEARANCE SL CLOUDY (CLEAR); URINE COLOR YELLOW (YELLOW)
[2017-07-17 01:40] LABS: URINE EPITHELIAL CELLS 0 - 2 /hpf (0-5)
[2017-07-17 01:41] LABS: URINE BACTERIA MOD (NEG)
[2017-07-17] MEDS: Sodium Chloride 0.9% 1,000 ML IV SCH ×2 (01:54→19:47)
[2017-07-17] MEDS ORDERED: cefTRIAXone 1 gm 1 GM/100 ML BAG IVPB STA (04:29)
[2017-07-17 04:40] LABS: BASO # 0.02 K/mm3 (0.0-2.0); BASO % 0.3 % (0.0-3.0); EOS # 0.1 (0.0-0.7); GRAN # 5.04 (1.4-6.5); GRAN % 65.8 % (50.0-68.0); HEMOGLOBIN 13.5 g/dL (12.0-16.0); LYMPH # 1.9 (1.2-3.4); LYMPH % 24.8 % (22.0-35.0); MEAN CELL VOLUME 86.2 fl (80.0-105.0); MEAN CORPUSCULAR HEMOGLOBIN 29.1 pg (25.0-35.0); MEAN CORPUSCULAR HGB CONC 33.8 g/dl (31.0-37.0); MONO # 0.6 (0.1-0.6); MONO % 8.1 % (1.0-6.0); RBC 4.64 10^6/uL (3.5-6.1); RED CELL DISTRIBUTION WIDTH 14.6 % (11.5-14.5); WHITE BLOOD COUNT 7.7 10^3/ul (4.5-11.0)
[2017-07-17 05:09] LABS: ALB/GLOB RATIO 1.2 (1.1-1.8); ALT/SGPT 30 U/L (7-56); AST/SGOT 33 U/L (14-36); BLOOD UREA NITROGEN 14 mg/dL (7-21); CALCIUM 9.4 mg/dL (8.4-10.5); GFR AFRICAN-AMERICAN > 60; GFR NON-AFRICAN AMERICAN > 60; HDL CHOLESTEROL 56 mg/dL (29-60)
[2017-07-17 05:18] LABS: LDL CHOLESTEROL 78 mg/dL (0-129)
[2017-07-17 05:19] LABS: TROPONIN I < 0.01 ng/mL
[2017-07-17 05:26] LABS: BARBITURATES, UR NEGATIVE (NEGATIVE); BENZODIAZEPINES, UR POSITIVE (NEGATIVE); OPIATES, UR NEGATIVE (NEGATIVE); PHENCYCLIDINE, UR NEGATIVE (NEGATIVE)
[2017-07-17] MEDS ORDERED: Pneumococcal 23-Valent Vaccine IM ONE (14:19)
--- NOTE | 2017-07-17 19:14 | CT ---
EXAM: CT Abdomen and Pelvis Without Intravenous Contrast CLINICAL HISTORY: 56 years old, female; Pain; Abdominal pain; Patient HX: Abdominal pain, urinary incontinence TECHNIQUE: Axial computed tomography images of the abdomen and pelvis without intravenous contrast. All CT scans at this facility use one or more dose reduction techniques, viz.: automated exposure control; ma/kV adjustment per patient size (including targeted exams where dose is matched to indication; i.e. head); or iterative reconstruction technique. Coronal and sagittal reformatted images were created and reviewed. COMPARISON: CT - ABD PELVIS W/O PO OR IV CONT 2017-01-15 20:59 FINDINGS: Lung bases: Atelectasis/scarring at the lung bases. ABDOMEN: Liver: No acute abnormality as visualized. Gallbladder and bile ducts: Status post cholecystectomy. Pancreas: No acute abnormality as visualized. Spleen: Calcified granulomas. Adrenals: No acute abnormality as visualized. Kidneys and ureters: No obstructing stones. No hydronephrosis. Stomach and bowel: Limited evaluation without enteric contrast. Mottled material within the stomach, correlate for recent ingestion of food. No obstruction. Limited evaluation of the appendix on this study. Further evaluation of the bowel can be performed with followup imaging with enteric contrast as warranted. PELVIS: Bladder: Distended bladder. Reproductive: No acute abnormality as visualized. Limited evaluation on noncontrast study. Further evaluation can be performed dedicated ultrasound as warranted. ABDOMEN and PELVIS: Intraperitoneal space: No free air. No significant fluid collection. Bones/joints: Degenerative changes. Stable lytic foci in L2, L3 and right iliac bone. Vasculature: Mild atherosclerosis. No abdominal aortic aneurysm. Lymph nodes: No acute abnormality as visualized. IMPRESSION: Distended bladder. Please note evaluation for underlying visceral lesions/abnormalities limited without intravenous contrast. Please see additional details/findings as above. Correlate clinically. Followup as warranted.
--- NOTE | 2017-07-17 23:48 | CARD ---
APPROVED REPORT EKG Measurement Heart [id number] FL 146P50 [id number] <Conclusion> Sinus tachycardia Otherwise normal ECG
[2017-07-18 06:08] VITALS: TEMP 97.9
[2017-07-18] MEDS: Sodium Chloride 0.9% 1,000 ML IV SCH (07:50)
[2017-07-18 08:25] LABS: BASO # 0.02 K/mm3 (0.0-2.0); BASO % 0.3 % (0.0-3.0); EOS # 0.3 (0.0-0.7); EOS % 4.1 % (1.5-5.0); GRAN # 3.22 (1.4-6.5); GRAN % 51.1 % (50.0-68.0); HEMOGLOBIN 13.7 g/dL (12.0-16.0); LYMPH # 2.3 (1.2-3.4); MEAN CELL VOLUME 87.2 fl (80.0-105.0); MEAN CORPUSCULAR HEMOGLOBIN 29.1 pg (25.0-35.0); MEAN CORPUSCULAR HGB CONC 33.4 g/dl (31.0-37.0); MEAN PLATELET VOLUME 9.7 fl (7.0-11.0); MONO # 0.5 (0.1-0.6); MONO % 7.5 % (1.0-6.0); RBC 4.7 10^6/uL (3.5-6.1); RED CELL DISTRIBUTION WIDTH 14.7 % (11.5-14.5); WHITE BLOOD COUNT 6.3 10^3/ul (4.5-11.0)
[2017-07-18 09:03] LABS: ALB/GLOB RATIO 1.1 (1.1-1.8); ALBUMIN 3.7 g/dL (3.0-4.8); ALT/SGPT 20 U/L (7-56); AST/SGOT 22 U/L (14-36); BLOOD UREA NITROGEN 18 mg/dL (7-21); GFR AFRICAN-AMERICAN > 60; GFR NON-AFRICAN AMERICAN > 60
[2017-07-18] MEDS ORDERED: cefTRIAXone 1 gm 1 GM/100 ML BAG IVPB SCH (10:00)
--- NOTE | 2017-07-18 15:01 | CP.PCM.PN ---
Subjective - Date & Time of Evaluation Date of Evaluation: 07/18/17 Time of Evaluation: 14:52 - Subjective Subjective: Pt is seen and examined. No acute events reported. Patient complaining of lower abdominal discomfort. Patient denies chest pain, shortness of breath. Objective - Vital Signs/Intake and Output Vital Signs (last 24 hours): Temp Pulse Resp BP Pulse Ox 97.9 F 68 19 128/84 94 L 07/18/17 06:00 07/18/17 06:00 07/18/17 06:00 07/18/17 06:00 07/18/17 06:00 Intake and Output: 07/18/17 07/18/17 06:59 18:59 Intake Total 480 Output Total 1800 Balance -1320 - Medications Medications: Current Medications Acetaminophen (Tylenol 325mg Tab) 650 mg PO Q6H PRN PRN Reason: Pain, moderate (4-7) Diphenhydramine HCl (Benadryl) 25 mg PO HS PRN PRN Reason: Insomnia Last Admin: 07/17/17 04:55 Dose: 25 mg Famotidine (Pepcid) 40 mg PO HS [facility] Last Admin: 07/17/17 22:56 Dose: 40 mg Sodium Chloride (Sodium Chloride 0.9%) 1,000 mls @ 80 mls/hr IV .[id number] [facility] Last Admin: 07/18/17 07:50 Dose: 80 mls/hr Ceftriaxone Sodium (Rocephin 1 Gram Ivpb) 1 gm in 100 mls @ 100 mls/hr IVPB DAILY [facility] PRN Reason: Protocol Last Admin: 07/18/17 11:11 Dose: 100 mls/hr Ketorolac Tromethamine (Toradol) 15 mg IVP Q6H PRN PRN Reason: Pain, moderate (4-7) Last Admin: 07/17/17 18:20 Dose: 15 mg Ondansetron HCl (Zofran Inj) 4 mg IVP Q6H PRN PRN Reason: Nausea/Vomiting Phenytoin Sodium (Dilantin) 100 mg PO TID [facility] Last Admin: 07/18/17 11:10 Dose: 100 mg - Labs Labs: PT 11.7 SECONDS (9.4-12.5) 07/16/17 15:30 INR 1.03 (0.93-1.08) 07/16/17 15:30 APTT 32.7 Seconds (25.1-36.5) 07/16/17 15:30 - Constitutional Appears: No Acute Distress - Head Exam Head Exam: ATRAUMATIC, NORMAL INSPECTION, NORMOCEPHALIC - Eye Exam Eye Exam: EOMI, PERRL - Respiratory Exam Respiratory Exam: Clear to Ausculation Bilateral, NORMAL BREATHING PATTERN. absent: Wheezes, Stridor - Cardiovascular Exam Cardiovascular Exam: REGULAR RHYTHM, +S1, +S2 - GI/Abdominal Exam GI & Abdominal Exam: Soft, Tenderness (mild suprapubic ). absent: Rigid - Extremities Exam Extremities Exam: Full ROM. absent: Pedal Edema - Neurological Exam Neurological Exam: Alert, Awake, Normal Gait, Oriented x3 - Psychiatric Exam Psychiatric exam: Normal Affect, Normal Mood - Skin Skin Exam: Dry, Warm Assessment and Plan - Assessment and Plan (Free Text) Assessment: 56 year old female with past medical history significant for low back pain, seizure disorder, arthritis, anxiety, depression, noncompliance who presented for chest discomfort and urinary incontinence. Patient chest discomfort subsided. Patient found to have urinary retention. Plan: Urinary Incontinence - Overflow Details: - Patietn bladder scan found to have ~1200 mL of urine - Rainey catheter placed for drainage - Patient has improvement clinically with suprapubic pain - No signs of saddle anesthesia, or neurological deficit - Urology consulted Plan: - Continue Rainey catheter for today - Discontinue rainey catheter for reassessment - B6, B12, Lumbar sacral spine xray - Toradol and Tylenol prn pain Hx of Seizure Disorder - Dilantin level - Continue home dilantin dose GI PPX: Pepcid DVT PPX: SCDs Case and plan discussed with attending
[2017-07-19 07:26] LABS: BARBITURATES, UR NEGATIVE (NEGATIVE); BENZODIAZEPINES, UR POSITIVE (NEGATIVE); OPIATES, UR NEGATIVE (NEGATIVE); PHENCYCLIDINE, UR NEGATIVE (NEGATIVE)
[2017-07-19 08:13] VITALS: BP 145/60; PULSE 84; RESP 20; O2SAT 98
--- NOTE | 2017-07-19 10:22 | RAD ---
PROCEDURE: Radiographs of the Lumbar Spine. HISTORY: overflow incontinence, eval COMPARISON: No prior. FINDINGS: BONES: Normal alignment. No listhesis. No fracture. DISC SPACES: There is disc degeneration at L4-5 and L5-S1 OTHER FINDINGS: None. IMPRESSION: Disc degeneration at L4-5 and L5-S1
--- NOTE | 2017-07-19 11:25 | CP.PCM.DIS ---
<Ravin Huitron - Last Filed: 07/19/17 11:40> Provider - Provider Date of Admission: 07/18/17 11:27 Attending physician: Sandra Woodall MD Primary care physician: Nancy Welch MD Consults: Urology: Dr. Leiva Time Spent in preparation of Discharge (in minutes): 35 Diagnosis - Discharge Diagnosis (1) Overflow incontinence of urine Status: Acute (2) Chronic back pain Status: Chronic (3) UTI (urinary tract infection) Status: Acute Hospital Course - Lab Results Lab Results: Most Recent Lab Values WBC 6.3 10^3/ul (4.5-11.0) 07/18/17 05:00 RBC 4.70 10^6/uL (3.5-6.1) 07/18/17 05:00 Hgb 13.7 g/dL (12.0-16.0) 07/18/17 05:00 Hct 41.0 % (36.0-48.0) 07/18/17 05:00 MCV 87.2 fl (80.0-105.0) 07/18/17 05:00 MCH 29.1 pg (25.0-35.0) 07/18/17 05:00 MCHC 33.4 g/dl (31.0-37.0) 07/18/17 05:00 RDW 14.7 % (11.5-14.5) H 07/18/17 05:00 Plt Count 268 10^3/uL (120.0-450.0) 07/18/17 05:00 MPV 9.7 fl (7.0-11.0) 07/18/17 05:00 Gran % 51.1 % (50.0-68.0) 07/18/17 05:00 Lymph % (Auto) 37.0 % (22.0-35.0) H 07/18/17 05:00 [place] % (Auto) 7.5 % (1.0-6.0) H 07/18/17 05:00 Eos % (Auto) 4.1 % (1.5-5.0) 07/18/17 05:00 Baso % (Auto) 0.3 % (0.0-3.0) 07/18/17 05:00 Gran # 3.22 (1.4-6.5) 07/18/17 05:00 Lymph # (Auto) 2.3 (1.2-3.4) 07/18/17 05:00 [place] # (Auto) 0.5 (0.1-0.6) 07/18/17 05:00 Eos # (Auto) 0.3 (0.0-0.7) 07/18/17 05:00 Baso # (Auto) 0.02 K/mm3 (0.0-2.0) 07/18/17 05:00 PT 11.7 SECONDS (9.4-12.5) 07/16/17 15:30 INR 1.03 (0.93-1.08) 07/16/17 15:30 APTT 32.7 Seconds (25.1-36.5) 07/16/17 15:30 Sodium 142 mmol/L (132-148) 07/18/17 08:00 Potassium 4.4 mmol/L (3.6-5.0) 07/18/17 08:00 Chloride 110 mmol/L (98-107) H 07/18/17 08:00 Carbon Dioxide 21 mmol/L (21-33) 07/18/17 08:00 Anion Gap 15 (10-20) 07/18/17 08:00 BUN 18 mg/dL (7-21) 07/18/17 08:00 Creatinine 0.7 mg/dl (0.7-1.2) 07/18/17 08:00 Est GFR ( Amer) > 60 07/18/17 08:00 Est GFR (Non-Af Amer) > 60 07/18/17 08:00 Random Glucose 88 mg/dL (70-110) 07/18/17 08:00 Hemoglobin A1c 5.0 % (4.2-6.5) 07/17/17 04:00 Calcium 9.0 mg/dL (8.4-10.5) 07/18/17 08:00 Magnesium 1.8 mg/dL (1.7-2.2) 07/16/17 15:30 Total Bilirubin 0.4 mg/dL (0.2-1.3) 07/18/17 08:00 AST 22 U/L (14-36) 07/18/17 08:00 ALT 20 U/L (7-56) 07/18/17 08:00 Alkaline Phosphatase 70 U/L (38-126) 07/18/17 08:00 Lactate Dehydrogenase 414 U/L (333-699) 07/16/17 15:30 Total Creatine Kinase 62 U/L (35-230) 07/16/17 15:30 Troponin I < 0.01 ng/mL 07/17/17 04:00 NT-Pro-B Natriuret Pep 50.4 pg/mL (0-450) 07/16/17 15:30 Total Protein 6.9 g/dL (5.8-8.3) 07/18/17 08:00 Albumin 3.7 g/dL (3.0-4.8) 07/18/17 08:00 Globulin 3.2 gm/dL 07/18/17 08:00 Albumin/Globulin Ratio 1.1 (1.1-1.8) 07/18/17 08:00 Triglycerides 57 mg/dL (35-160) 07/17/17 04:00 Cholesterol 152 mg/dL (130-200) 07/17/17 04:00 LDL Cholesterol Direct 78 mg/dL (0-129) 07/17/17 04:00 HDL Cholesterol 56 mg/dL (29-60) 07/17/17 04:00 Lipase 110 U/L (23-300) 07/16/17 15:30 TSH 3rd Generation 2.31 mIU/mL (0.46-4.68) 07/17/17 04:00 Prolactin 11.3 ng/mL (3.0-18.9) 07/17/17 04:00 Urine Color Yellow (YELLOW) 07/17/17 01:17 Urine Appearance Sl cloudy (CLEAR) 07/17/17 01:17 Urine pH 7.0 (4.7-8.0) 07/17/17 01:17 Ur Specific [place] 1.015 (1.005-1.035) 07/17/17 01:17 Urine Protein Negative mg/dL (<30 mg/dL) 07/17/17 01:17 Urine Glucose (UA) Negative mg/dL (NEGATIVE) 07/17/17 01:17 Urine Ketones Negative mg/dL (NEGATIVE) 07/17/17 01:17 Urine Blood Trace-intact (NEGATIVE) H 07/17/17 01:17 Urine Nitrate Negative (NEGATIVE) 07/17/17 01:17 Urine Bilirubin Negative (NEGATIVE) 07/17/17 01:17 Urine Urobilinogen 0.2 E.U./dL (<1 E.U./dL) 07/17/17 01:17 Ur Leukocyte Esterase Moderate [place]aim/uL (NEGATIVE) H 07/17/17 01:17 Urine RBC 1 - 3 /hpf (0-2) 07/17/17 01:17 Urine WBC 5 - 10 /hpf (0-6) 07/17/17 01:17 Ur Epithelial Cells 0 - 2 /hpf (0-5) 07/17/17 01:17 Urine Bacteria Mod (NEG) 07/17/17 01:17 Urine HCG, Qual Negative (NEGATIVE) 07/17/17 17:15 Urine Opiates Screen Negative (NEGATIVE) 07/19/17 04:00 Urine Methadone Screen Negative (NEGATIVE) 07/19/17 04:00 Ur Barbiturates Screen Negative (NEGATIVE) 07/19/17 04:00 Phenytoin < 3 ug/mL (10-20) L 07/17/17 04:00 Ur Phencyclidine Scrn Negative (NEGATIVE) 07/19/17 04:00 Ur Amphetamines Screen Negative (NEGATIVE) 07/19/17 04:00 U Benzodiazepines Scrn Positive (NEGATIVE) 07/19/17 04:00 U Oth Cocaine Metabols Negative (NEGATIVE) 07/19/17 04:00 U Cannabinoids Screen Negative (NEGATIVE) 07/19/17 04:00 Alcohol, Quantitative < 10 mg/dL (0-10) 07/17/17 04:00 - Hospital Course Hospital Course: 56 year old female with past medical history of chronic low back pain, seizure disorder, arthritis, anxiety, depression, who presented for urinary incontinence for past 6 months. Patient was evaluated in ED and found to be afebrile, stable vital signs, with EKG showing sinus tachycardia. Patient had LE US negative for DVT and CXR which was negative for infiltrates. Patient was admitted for abdominal discomfort and urology was consulted. Patient had UA showing moderate leukocyte esterase. Patient was on IV antibiotics for suspected UTI. Patient had abdomen and pelvis CT scan showing distended bladder and lumbar sacral x ray showing L4-L5 disc degeneration. During admission patient was noted to have suprapubic tenderness and with minimal urine output and difficultly/pain with attempting to urinate. Bladder scan was preformed showing 931mL. Ruiz catheter was placed. Patient was monitored over night. Morning of 07/19/17 patient requested to be signed out against medical advice. Patient was given information regards the risks for leaving AMA and benefits for staying in hospital. Patient was instructed to return to nearest ED if she began experiencing similar symptoms that brought her into the hospital as well as absence of urinary output. Patient was given oral antibiotic prescription. Patient signed appropriate paperwork for AMA and paperwork was placed in patients chart. - Date & Time of H&P Date of H&P: 07/17/17 Time of H&P: 00:58 Discharge Exam - Head Exam Head Exam: ATRAUMATIC, NORMAL INSPECTION, NORMOCEPHALIC - Eye Exam Eye Exam: EOMI, PERRL - Respiratory Exam Respiratory Exam: Clear to PA & Lateral, NORMAL BREATHING PATTERN. absent: Rhonchi, Wheezes, Respiratory Distress - Cardiovascular Exam Cardiovascular Exam: REGULAR RHYTHM, +S1, +S2 - GI/Abdominal Exam GI & Abdominal Exam: Normal Bowel Sounds, Soft, Tenderness (mild suprapubic pain ) - Extremities Exam Extremities exam: normal capillary refill, normal inspection, pedal pulses present - Back Exam Back exam: absent: paraspinal tenderness - Neurological Exam Neurological exam: Alert, Normal Gait, Oriented x3 - Psychiatric Exam Psychiatric exam: Normal Affect, Normal Mood - Skin Skin Exam: Dry, Warm Discharge Plan - Discharge Medications Prescriptions: Cephalexin [cephalexin] 500 mg PO BID #14 cap - Follow Up Plan Condition: IMPROVED Disposition: AGAINST MEDICAL ADVICE Additional Instructions: Patient given antibiotics for UTI, instructions given on appropriate schedule Return to nearest ED if you have return or worsening of your presenting symptoms Follow up with your primary care physician within 1-2 weeks upon discharge Take medications as prescribed to you Referrals: Nancy Welch MD [Primary Care Provider] - <Sandra Woodall - Last Filed: 07/19/17 12:18> Provider - Provider Date of Admission: 07/18/17 11:27 Attending physician: Sandra Woodall MD Primary care physician: Nancy Welch MD Hospital Course - Lab Results Lab Results: Most Recent Lab Values WBC 6.3 10^3/ul (4.5-11.0) 07/18/17 05:00 RBC 4.70 10^6/uL (3.5-6.1) 07/18/17 05:00 Hgb 13.7 g/dL (12.0-16.0) 07/18/17 05:00 Hct 41.0 % (36.0-48.0) 07/18/17 05:00 MCV 87.2 fl (80.0-105.0) 07/18/17 05:00 MCH 29.1 pg (25.0-35.0) 07/18/17 05:00 MCHC 33.4 g/dl (31.0-37.0) 07/18/17 05:00 RDW 14.7 % (11.5-14.5) H 07/18/17 05:00 Plt Count 268 10^3/uL (120.0-450.0) 07/18/17 05:00 MPV 9.7 fl (7.0-11.0) 07/18/17 05:00 Gran % 51.1 % (50.0-68.0) 07/18/17 05:00 Lymph % (Auto) 37.0 % (22.0-35.0) H 07/18/17 05:00 [place] % (Auto) 7.5 % (1.0-6.0) H 07/18/17 05:00 Eos % (Auto) 4.1 % (1.5-5.0) 07/18/17 05:00 Baso % (Auto) 0.3 % (0.0-3.0) 07/18/17 05:00 Gran # 3.22 (1.4-6.5) 07/18/17 05:00 Lymph # (Auto) 2.3 (1.2-3.4) 07/18/17 05:00 [place] # (Auto) 0.5 (0.1-0.6) 07/18/17 05:00 Eos # (Auto) 0.3 (0.0-0.7) 07/18/17 05:00 Baso # (Auto) 0.02 K/mm3 (0.0-2.0) 07/18/17 05:00 PT 11.7 SECONDS (9.4-12.5) 07/16/17 15:30 INR 1.03 (0.93-1.08) 07/16/17 15:30 APTT 32.7 Seconds (25.1-36.5) 07/16/17 15:30 Sodium 142 mmol/L (132-148) 07/18/17 08:00 Potassium 4.4 mmol/L (3.6-5.0) 07/18/17 08:00 Chloride 110 mmol/L (98-107) H 07/18/17 08:00 Carbon Dioxide 21 mmol/L (21-33) 07/18/17 08:00 Anion Gap 15 (10-20) 07/18/17 08:00 BUN 18 mg/dL (7-21) 07/18/17 08:00 Creatinine 0.7 mg/dl (0.7-1.2) 07/18/17 08:00 Est GFR ( Amer) > 60 07/18/17 08:00 Est GFR (Non-Af Amer) > 60 07/18/17 08:00 Random Glucose 88 mg/dL (70-110) 07/18/17 08:00 Hemoglobin A1c 5.0 % (4.2-6.5) 07/17/17 04:00 Calcium 9.0 mg/dL (8.4-10.5) 07/18/17 08:00 Magnesium 1.8 mg/dL (1.7-2.2) 07/16/17 15:30 Total Bilirubin 0.4 mg/dL (0.2-1.3) 07/18/17 08:00 AST 22 U/L (14-36) 07/18/17 08:00 ALT 20 U/L (7-56) 07/18/17 08:00 Alkaline Phosphatase 70 U/L (38-126) 07/18/17 08:00 Lactate Dehydrogenase 414 U/L (333-699) 07/16/17 15:30 Total Creatine Kinase 62 U/L (35-230) 07/16/17 15:30 Troponin I < 0.01 ng/mL 07/17/17 04:00 NT-Pro-B Natriuret Pep 50.4 pg/mL (0-450) 07/16/17 15:30 Total Protein 6.9 g/dL (5.8-8.3) 07/18/17 08:00 Albumin 3.7 g/dL (3.0-4.8) 07/18/17 08:00 Globulin 3.2 gm/dL 07/18/17 08:00 Albumin/Globulin Ratio 1.1 (1.1-1.8) 07/18/17 08:00 Triglycerides 57 mg/dL (35-160) 07/17/17 04:00 Cholesterol 152 mg/dL (130-200) 07/17/17 04:00 LDL Cholesterol Direct 78 mg/dL (0-129) 07/17/17 04:00 HDL Cholesterol 56 mg/dL (29-60) 07/17/17 04:00 Lipase 110 U/L (23-300) 07/16/17 15:30 TSH 3rd Generation 2.31 mIU/mL (0.46-4.68) 07/17/17 04:00 Prolactin 11.3 ng/mL (3.0-18.9) 07/17/17 04:00 Urine Color Yellow (YELLOW) 07/17/17 01:17 Urine Appearance Sl cloudy (CLEAR) 07/17/17 01:17 Urine pH 7.0 (4.7-8.0) 07/17/17 01:17 Ur Specific [place] 1.015 (1.005-1.035) 07/17/17 01:17 Urine Protein Negative mg/dL (<30 mg/dL) 07/17/17 01:17 Urine Glucose (UA) Negative mg/dL (NEGATIVE) 07/17/17 01:17 Urine Ketones Negative mg/dL (NEGATIVE) 07/17/17 01:17 Urine Blood Trace-intact (NEGATIVE) H 07/17/17 01:17 Urine Nitrate Negative (NEGATIVE) 07/17/17 01:17 Urine Bilirubin Negative (NEGATIVE) 07/17/17 01:17 Urine Urobilinogen 0.2 E.U./dL (<1 E.U./dL) 07/17/17 01:17 Ur Leukocyte Esterase Moderate [place]aim/uL (NEGATIVE) H 07/17/17 01:17 Urine RBC 1 - 3 /hpf (0-2) 07/17/17 01:17 Urine WBC 5 - 10 /hpf (0-6) 07/17/17 01:17 Ur Epithelial Cells 0 - 2 /hpf (0-5) 07/17/17 01:17 Urine Bacteria Mod (NEG) 07/17/17 01:17 Urine HCG, Qual Negative (NEGATIVE) 07/17/17 17:15 Urine Opiates Screen Negative (NEGATIVE) 07/19/17 04:00 Urine Methadone Screen Negative (NEGATIVE) 07/19/17 04:00 Ur Barbiturates Screen Negative (NEGATIVE) 07/19/17 04:00 Phenytoin < 3 ug/mL (10-20) L 07/17/17 04:00 Ur Phencyclidine Scrn Negative (NEGATIVE) 07/19/17 04:00 Ur Amphetamines Screen Negative (NEGATIVE) 07/19/17 04:00 U Benzodiazepines Scrn Positive (NEGATIVE) 07/19/17 04:00 U Oth Cocaine Metabols Negative (NEGATIVE) 07/19/17 04:00 U Cannabinoids Screen Negative (NEGATIVE) 07/19/17 04:00 Alcohol, Quantitative < 10 mg/dL (0-10) 07/17/17 04:00 Attending/Attestation - Attestation I have reviewed all pertinent clinical information, including history, physical exam and plan: Yes Notes (Text): 07/19/17 12:17 Patient signed out against medical advice prior to my rounds.
== END 2017-07-19 08:42 | disposition left against medical advice (07) ==
LOC: ED 14:25 → ERH 07-17 00:17 → 2RSO 07-17 12:18 → INTOOBSV 07-18 11:27 → OBSVTOIN 07-18 11:27 → 5RNO 07-18 12:59
PROVIDERS: ADMIT Internal Medicine; ATTEND Internal Medicine
DX: N39.490 Overflow incontinence (principal); N39.0 Urinary tract infection, site not specified; R07.89 Other chest pain; G89.29 Other chronic pain; M51.37 Other intervertebral disc degeneration, lumbosacral region; M32.9 Systemic lupus erythematosus, unspecified; G40.909 Epilepsy, unspecified, not intractable, without status epilepticus; F41.9 Anxiety disorder, unspecified; F32.9 Major depressive disorder, single episode, unspecified; G43.909 Migraine, unspecified, not intractable, without status migrainosus; M19.90 Unspecified osteoarthritis, unspecified site; Z91.14 Patient's other noncompliance with medication regimen; Z90.49 Acquired absence of other specified parts of digestive tract
CPT/HCPCS: 36415; 71045; 72100; 74176; 80053; 80061; 80185; 80320; 80324; 80345; 80346; 80349; 80353; 80358; 80361; 81001; 82550; 83036; 83615; 83690; 83735; 83880; 83992; 84146; 84443; 84484; 84703; 85025; 85610; 85730; 87086; 93005; 93970; 96361; 96365; 96366; 96375; 96376; 99285; G0378; J0696; J1885; J7040

== ENCOUNTER 2017-07-24 13:34 | Emergency (ER) | payer MEDICAID ==
[2017-07-24 13:36] VITALS: BMI 27.4
[2017-07-24 14:00] VITALS: TEMP 97.5
[2017-07-24] MEDS ORDERED: Sodium Chloride 0.9% 1,000 ML IV STA (14:33)
--- NOTE | 2017-07-24 14:38 | ED PDOC ---
Arrival/HPI - General Historian: Patient - History of Present Illness Time/Duration: < week - General Chief Complaint: Abdominal Pain Time Seen by Provider: 07/24/17 13:49 - History of Present Illness Narrative History of Present Illness (Text): Patient is a 56 year old female is a poor historian, with PMH noncompliance, low back pain, seizure disorder, arthritis, anxiety, depression, presents for abdominal pain. The patient was recently admitted on 07/16 to 07/19 for similar complaints but signed out AMA. She was given Keflex upon discharge, which patient states she took. The abdominal pain is diffuse but is most severe in the epigastric region. The pain had resolved after signing out AMA but returned two days ago and has been progressively worse. The abdominal pain radiates across the upper quadrants of her abdomen to her back. The pain also radiates up her chest into her neck and down her abdomen towards her bladder. Patient states that all the pain originates from the epigastric region and radiates outward. She has had increased frequency of urinating, approximately every three hours. She is also experiencing frequent diarrhea, described as clear, water. She is unable to quantitate the number of episodes of diarrhea, just states "a lot." She reports mild nausea with dry heaving without vomiting. The nausea has since resolved. She has been experiencing chills and subjective fevers. Denies seizure like activity, bladder/bowel incontinence, saddle anesthesia, sob, diaphoresis, numbness/tingling down her legs, headache, vision changes. (Eren Link) Past Medical History - Provider Review Nursing Documentation Reviewed: Yes - Infectious Disease Hx of Infectious Diseases: None - Tetanus Immunization Tetanus Immunization: OTH - Past Medical History Past Medical History: No Previous - Cardiac Hx Cardiac Disorders: Yes (chest pain) Hx Peripheral Edema: Yes (slight right hand) - Pulmonary Hx Bronchitis: Yes - Neurological Hx Neurological Disorder: Yes Hx Dizziness: Yes Hx Migraine: Yes Hx Seizures: Yes (last one 3 month ago) Other/Comment: pt denies numbness/tingling to b/l arms and legs - HEENT Hx HEENT Disorder: No - Renal Hx Renal Disorder: No - Endocrine/Metabolic Hx Endocrine Disorders: Yes Hx Systemic Lupus Erythematosus: Yes - Hematological/Oncological Hx Blood Disorders: No - Integumentary Hx Dermatological Disorder: Yes Hx Psoriasis: Yes Other/Comment: multiple dry patches of skin due to psoriasis, old scars healed to rle and left arm from a fall "yrs ago" in [place], fake nail accidently pulled off sone dried blood around real nail covered with bandaid r hand 2nd finger - Musculoskeletal/Rheumatological Hx Falls: Yes ("years ago in [place]") - Gastrointestinal Hx Gastrointestinal Disorders: Yes Hx Gall Bladder Disease: Yes (stones) - Genitourinary/Gynecological Hx Genitourinary Disorders: Yes Hx Incontinence: Yes (for about 6 months) - Psychiatric Hx Psychophysiologic Disorder: Yes (insomnia) Hx Anxiety: Yes Hx Depression: Yes Hx Substance Use: No - Past Surgical History Past Surgical History: Non-Contributing - Surgical History Hx Cholecystectomy: Yes (gallstones) - Anesthesia Hx Anesthesia: Yes Hx Anesthesia Reactions: No Hx Malignant Hyperthermia: No - Suicidal Assessment Feels Threatened In Home Enviroment: No Family/Social History - Physician Review Nursing Documentation Reviewed: Yes Family/Social History: Unknown Family HX Smoking Status: Never Smoked Hx Alcohol Use: No Hx Substance Use: No Hx Substance Use Treatment: No Allergies/Home Meds Allergies/Adverse Reactions: Allergies morphine Allergy (Verified 06/20/17 16:08) DIZZINESS phenytoin sodium [From Dilantin] Allergy (Verified 06/20/17 16:08) RASH phenytoin sodium extended [From Dilantin] Allergy (Verified 06/20/17 16:08) RASH quetiapine fumarate [From Seroquel] Allergy (Verified 06/20/17 16:08) RASH tramadol Allergy (Verified 06/20/17 16:08) RASH Home Medications: Home Meds Medication Instructions Recorded Confirmed Alprazolam [Xanax] 0.5 mg PO TID 07/17/17 07/24/17 Review of Systems - Physician Review All systems were reviewed & negative as marked: Yes - Review of Systems Constitutional: Fatigue, Fevers (subjective). absent: Weight Change Eyes: Normal. absent: Vision Changes, Photophobia ENT: Normal. absent: Sore Throat, Rhinorrhea, Epistaxis Respiratory: absent: SOB, Cough, Wheezing Cardiovascular: Chest Pain (originating from epigastric and radiating up towards chest.). absent: Palpitations, Edema, Calf Pain, TERRELL, Orthopnea, Syncope Gastrointestinal: Abdominal Pain, Diarrhea, Nausea, Appetite Changes (decreased) . absent: Stool Changes, Constipation, Vomiting, Hematochezia, Hematemesis Genitourinary Female: Frequency (increased). absent: Dysuria, Hematuria, Vaginal Bleeding Musculoskeletal: Normal Skin: Normal. absent: Rash Neurological: Normal. absent: Headache, Dizziness, Focal Weakness, Speech Changes, Facial Droop, Seizure Endocrine: Normal. absent: Diaphoresis Hemo/Lymphatic: Normal. absent: Adenopathy Psychiatric: Normal Physical Exam Vital Signs Reviewed: Yes Temperature: Afebrile Blood Pressure: Hypertensive Pulse: Regular Respiratory Rate: Normal Appearance: Positive for: Non-Toxic, Comfortable Pain Distress: None Mental Status: Positive for: Alert and Oriented X 3 - Systems Exam Head: Present: Atraumatic, Normocephalic Pupils: Present: PERRL Extroacular Muscles: Present: EOMI Conjunctiva: Present: Normal Mouth: Present: Moist Mucous Membranes. No: Normal Teeth (missing teeth) Pharnyx: Present: Normal. No: ERYTHEMA, EXUDATE, TONSILS ENLARGED Nose (External): Present: Atraumatic Nose (Internal): Present: Normal Inspection, No Active Bleeding, Moist. No: Engorged Neck: Present: Normal Range of Motion Respiratory/Chest: Present: Clear to Auscultation, Good Air Exchange. No: Respiratory Distress, Accessory Muscle Use Cardiovascular: Present: Regular Rate and Rhythm, Normal S1, S2. No: Murmurs Abdomen: Present: Tenderness (diffusely TTP. most severe in epigastric region.) , Normal Bowel Sounds, Guarding (epigastric region only.). No: Distention, Peritoneal Signs, Rebound Upper Extremity: Present: Normal Inspection. No: Cyanosis, Edema Lower Extremity: Present: Normal Inspection, NORMAL PULSES. No: Edema, CALF TENDERNESS Neurological: Present: GCS=15, CN II-XII Intact, Speech Normal, Motor Func Grossly Intact Skin: Present: Warm, Dry, Normal Color. No: Rashes Lymphatic: No: Cervical Adenopathy Psychiatric: Present: Alert, Oriented x 3, Normal Insight, Normal Concentration Vital Signs Temp Pulse Resp BP Pulse Ox 07/24/17 18:47 98 H 18 116/71 98 07/24/17 17:00 108 H 18 118/69 98 07/24/17 15:03 116 H 18 121/70 98 07/24/17 13:36 97.5 F L 120 H 19 120/85 99 Medical Decision Making Re-evaluation Time: 18:48 Reassessment Condition: Improving,but remains with symptoms - Lab Interpretations I have reviewed the lab results: Yes (unremarkable ) ED Course and Treatment: 07/24/17 15:11 Patient 07/24/17 17:27 Patient is sitting up resting comfortably in bed. She states that she is in pain and is continually requesting pain medications. Abdomen is soft, non- distended. She states she is still operator gin in the epigastric region and needs more pain medicine. Blood work is unremarkable. Will give patient maalox, and viscous lidocaine. 07/24/17 18:48 Patient is feeling much better after combination of maalox, and viscous lidocaine. She has mild pain in her upper abdomen but overall is feeling better. Patient was informed that she is being discharged home and she is to follow up with her PMD. She states she understands and will follow up accordingly. (Eren Link) 07/24/17 15:34 Patient Seen With Resident: 56 yo male with abdominal pain as described. Abdomen soft, mild tenderness to epigastric agrea, no guarding, no rebound In agreement with resident note which contains more details about the patient. Patient was seen and evaluated with resident. Came up with plan and treatment together. 07/24/17 17:27 On reevaluation, patient is much better. Her abdomen is soft and not tender. She is tolerating PO fluids. She will f/u with her PMD in 1-2days. (Aly Carballo) - Lab Interpretations Lab Results: 07/24/17 16:50 07/24/17 16:50 Lab Results 07/24/17 16:50: pO2 34, VBG pH 7.33, VBG pCO2 59.0, VBG HCO3 31.1 H, VBG Total CO2 32.9 H, VBG O2 Sat (Calc) 75.4 H, VBG Base Excess 3.6 H, VBG Potassium 4.4, Sodium 139.0, Chloride 104.0, Glucose 118 H, Lactate 1.2, FiO2 21.0, Venous Blood Potassium 4.4 07/24/17 16:50: Sodium 144, Chloride 101, Potassium 4.4, Carbon Dioxide 30, Anion Gap 18, BUN 15, Creatinine 0.6 L, Est GFR ( Amer) > 60, Est GFR ( Non-Af Amer) > 60, Random Glucose 116 H, Calcium 10.0, Total Bilirubin 0.4, AST 35, ALT 32, Alkaline Phosphatase 94, Total Protein 8.8 H, Albumin 4.8, Globulin 4.0, Albumin/Globulin Ratio 1.2, Lipase 96 07/24/17 16:50: PT 12.1, INR 1.06, APTT 25.7 07/24/17 16:50: WBC 7.2, RBC 4.95, Hgb 14.8, Hct 43.0, MCV 86.9, MCH 29.9, MCHC 34.4, RDW 14.3, Plt Count 313, MPV 9.7, Gran % 74.4 H, Lymph % (Auto) 20.2 L, Stanton % (Auto) 5.0, Eos % (Auto) 0.3 L, Baso % (Auto) 0.1, Gran # 5.33, Lymph # ( Auto) 1.5, Stanton # (Auto) 0.4, Eos # (Auto) 0.0, Baso # (Auto) 0.01 07/24/17 15:50: Urine Color Yellow, Urine Appearance Clear, Urine pH 8.0, Ur Specific [place] 1.015, Urine Protein Negative, Urine Glucose (UA) Negative, Urine Ketones Negative, Urine Blood Negative, Urine Nitrate Negative, Urine Bilirubin Negative, Urine Urobilinogen 0.2, Ur Leukocyte Esterase Trace H, Urine RBC Negative, Urine WBC 1 - 3, Ur Epithelial Cells 0 - 2, Urine Bacteria Few - Medication Orders Current Medication Orders: Discontinued Medications Al Hydrox/Mg Hydrox/Simethicone (Maalox Plus 30 Ml) 30 ml PO STAT STA Stop: 07/24/17 17:20 Last Admin: 07/24/17 18:30 Dose: 30 ml Belladonna/Phenobarbital ( Elixir) 5 ml PO STAT STA Stop: 07/24/17 17:20 Last Admin: 07/24/17 18:31 Dose: 5 ml Famotidine (Pepcid) 20 mg IVP STAT STA Stop: 07/24/17 14:34 Last Admin: 07/24/17 14:30 Dose: 20 mg IVP Administration Document 07/24/17 14:30 SF (Rec: 07/24/17 16:56 [email or web address]) Charges for Administration # of IVP Administrations 1 Famotidine (Pepcid) 20 mg IVP ONCE ONE Stop: 07/24/17 15:16 Last Admin: 07/24/17 16:44 Dose: Sodium Chloride (Sodium Chloride 0.9%) 1,000 mls @ 1,000 mls/hr IV .Q1H STA Stop: 07/24/17 15:32 Last Admin: 07/24/17 16:55 Dose: 1,000 mls/hr eMAR Start Stop Document 07/24/17 16:55 SF (Rec: 07/24/17 16:55 [email or web address]) Intravenous Solution Start Date 07/24/17 Start Time 13:34 End Date 07/24/17 End time 14:34 Total Infusion Time 60 Lidocaine HCl (Lidocaine 2% Viscous) 15 ml PO STAT STA Stop: 07/24/17 17:20 Last Admin: 07/24/17 18:30 Dose: 15 ml Disposition/Present on Arrival - Present on Arrival Any Indicators Present on Arrival: No History of DVT/PE: No History of Uncontrolled Diabetes: No Urinary Catheter: No History of Decub. Ulcer: No History Surgical Site Infection Following: None - Disposition Have Diagnosis and Disposition been Completed?: Yes Disposition Time: 18:50 Patient Plan: Discharge - Disposition Diagnosis: Abdominal pain Disposition: HOME/ ROUTINE Condition: IMPROVED Additional Instructions: Ms Milton Franz, thank you for letting us take care of you today. Your provider was Dr. Carballo. You were treated for Abdominal Pain. The emergency medical care you received today was directed at your acute symptoms. If you were prescribed any medication, please fill it and take as directed. It may take several days for your symptoms to resolve. Return to the Emergency Department if your symptoms worsen, do not improve, or if you have any other problems. Please contact your doctor or call one of the physicians/clinics you have been referred to that are listed on the Patient Visit Information form that is included in your discharge packet. Bring any paperwork you were given at discharge with you along with any medications you are taking to your follow up visit. Our treatment cannot replace ongoing medical care by a primary care provider (PCP) outside of the emergency department. Thank you for allowing the [facility] team to be part of your care today. If you had an X-Ray or CT scan: A Radiologist will review the ED reading if any change in treatment is needed we will contact you. If you had a blood, urine, or wound culture: It will take several days for the results, if any change in treatment is needed we will contact you. If you had an STI test: It will take 48 hours for the results. Please call after 1 week if you have not heard back. Prescriptions: Ranitidine HCl [Zantac] 150 mg PO BID PRN #30 tablet PRN Reason: Pain, Mild (1-3) Referrals: Nancy Welch MD [Primary Care Provider] - Follow up with primary Forms: [facility] (Kiswahili), WORK NOTE
[2017-07-24 15:03] VITALS: RESP 18; O2SAT 98
[2017-07-24 16:01] LABS: URINE BILIRUBIN NEGATIVE (NEGATIVE); URINE BLOOD NEGATIVE (NEGATIVE); URINE GLUCOSE (UA) NEGATIVE (NEGATIVE); URINE LEUKOCYTE ESTERASE TRACE Leu/uL (NEGATIVE); URINE PROTEIN NEGATIVE mg/dL (<30 mg/dL); URINE UROBILINOGEN 0.2 E.U./dL (<1 E.U./dL)
[2017-07-24 16:06] LABS: URINE APPEARANCE CLEAR (CLEAR); URINE COLOR YELLOW (YELLOW)
[2017-07-24 16:07] LABS: URINE EPITHELIAL CELLS 0 - 2 /hpf (0-5); URINE RBC NEGATIVE /hpf (0-2)
[2017-07-24 16:08] LABS: URINE BACTERIA FEW (NEG)
[2017-07-24 17:04] LABS: VENOUS BLOOD GAS BASE EXCESS 3.6 mmol/L (0.0-2.0); VENOUS BLOOD GAS PO2 34 mm/Hg (30-55); VENOUS BLOOD PH 7.33 (7.32-7.43)
[2017-07-24 17:05] LABS: BASO # 0.01 K/mm3 (0.0-2.0); BASO % 0.1 % (0.0-3.0); EOS % 0.3 % (1.5-5.0); GRAN # 5.33 (1.4-6.5); GRAN % 74.4 % (50.0-68.0); HEMOGLOBIN 14.8 g/dL (12.0-16.0); LYMPH # 1.5 (1.2-3.4); LYMPH % 20.2 % (22.0-35.0); MEAN CELL VOLUME 86.9 fl (80.0-105.0); MEAN CORPUSCULAR HEMOGLOBIN 29.9 pg (25.0-35.0); MEAN CORPUSCULAR HGB CONC 34.4 g/dl (31.0-37.0); MEAN PLATELET VOLUME 9.7 fl (7.0-11.0); MONO # 0.4 (0.1-0.6); RBC 4.95 10^6/uL (3.5-6.1); RED CELL DISTRIBUTION WIDTH 14.3 % (11.5-14.5); WHITE BLOOD COUNT 7.2 10^3/ul (4.5-11.0)
[2017-07-24 17:14] LABS: INR 1.06 (0.93-1.08); PARTIAL THROMBOPLASTIN TIME 25.7 Seconds (25.1-36.5); PROTHROMBIN TIME 12.1 SECONDS (9.4-12.5)
[2017-07-24 17:18] LABS: ALB/GLOB RATIO 1.2 (1.1-1.8); ALBUMIN 4.8 g/dL (3.0-4.8); ALT/SGPT 32 U/L (7-56); AST/SGOT 35 U/L (14-36); BLOOD UREA NITROGEN 15 mg/dL (7-21); GFR AFRICAN-AMERICAN > 60; GFR NON-AFRICAN AMERICAN > 60; LIPASE 96 U/L (23-300)
[2017-07-24] MEDS ORDERED: Atrop/Hyosc/Scopal/PB Elixir (120 ml) PO STA (17:19)
[2017-07-24] MEDS ORDERED: Alum-Mag Hydrox-Simethicone Susp (30 mL) PO STA (17:19)
[2017-07-24 18:47] VITALS: BP 116/71; PULSE 98
== END 2017-07-24 19:01 | disposition home or self-care (01) ==
LOC: ED 13:34
DX: R10.13 Epigastric pain (principal); M32.9 Systemic lupus erythematosus, unspecified
CPT/HCPCS: 80053; 81001; 82803; 83690; 85025; 85610; 85730; 87040; 87086; 96361; 96374; 99285; J7040

== ENCOUNTER 2017-07-29 13:46 | Emergency (ER) | payer MEDICAID ==
[2017-07-29 13:47] VITALS: BMI 27.4
[2017-07-29 14:02] VITALS: RESP 18; TEMP 98.2; O2SAT 100
--- NOTE | 2017-07-29 15:18 | ED PDOC ---
Arrival/HPI - General Chief Complaint: Chest Pain Time Seen by Provider: 07/29/17 14:03 Historian: Patient - History of Present Illness Narrative History of Present Illness (Text): 07/29/17 15:17 56yo female Past Medical History - Infectious Disease Hx of Infectious Diseases: None - Tetanus Immunization Tetanus Immunization: OTH - Past Medical History Past Medical History: No Previous - Cardiac Hx Cardiac Disorders: Yes (chest pain) Hx Peripheral Edema: Yes (slight right hand) - Pulmonary Hx Bronchitis: Yes - Neurological Hx Neurological Disorder: Yes Hx Dizziness: Yes Hx Migraine: Yes Hx Seizures: Yes (last one 3 month ago) Other/Comment: pt denies numbness/tingling to b/l arms and legs - HEENT Hx HEENT Disorder: No - Renal Hx Renal Disorder: No - Endocrine/Metabolic Hx Endocrine Disorders: Yes Hx Systemic Lupus Erythematosus: Yes - Hematological/Oncological Hx Blood Disorders: No - Integumentary Hx Dermatological Disorder: Yes Hx Psoriasis: Yes Other/Comment: multiple dry patches of skin due to psoriasis, old scars healed to rle and left arm from a fall "yrs ago" in [place], fake nail accidently pulled off sone dried blood around real nail covered with bandaid r hand 2nd finger - Musculoskeletal/Rheumatological Hx Falls: Yes ("years ago in [place]") - Gastrointestinal Hx Gastrointestinal Disorders: Yes Hx Gall Bladder Disease: Yes (stones) - Genitourinary/Gynecological Hx Genitourinary Disorders: Yes Hx Incontinence: Yes (for about 6 months) - Psychiatric Hx Psychophysiologic Disorder: Yes (insomnia) Hx Anxiety: Yes Hx Depression: Yes Hx Substance Use: No - Past Surgical History Past Surgical History: Non-Contributing - Surgical History Hx Cholecystectomy: Yes (gallstones) - Anesthesia Hx Anesthesia: Yes Hx Anesthesia Reactions: No Hx Malignant Hyperthermia: No - Suicidal Assessment Feels Threatened In Home Enviroment: No Family/Social History Smoking Status: Never Smoked Hx Alcohol Use: No Hx Substance Use: No Hx Substance Use Treatment: No Allergies/Home Meds Allergies/Adverse Reactions: Allergies morphine Allergy (Verified 06/20/17 16:08) DIZZINESS phenytoin sodium [From Dilantin] Allergy (Verified 06/20/17 16:08) RASH phenytoin sodium extended [From Dilantin] Allergy (Verified 06/20/17 16:08) RASH quetiapine fumarate [From Seroquel] Allergy (Verified 06/20/17 16:08) RASH tramadol Allergy (Verified 06/20/17 16:08) RASH Home Medications: Home Meds Medication Instructions Recorded Confirmed Alprazolam [Xanax] 0.5 mg PO TID 07/17/17 07/24/17 Physical Exam Vital Signs Temp Pulse Resp BP Pulse Ox 07/29/17 18:22 99 H 18 134/82 100 07/29/17 17:10 99 H 18 131/65 100 07/29/17 15:06 111 H 18 135/69 100 07/29/17 14:01 98.2 F 107 H 18 137/72 100 Medical Decision Making ED Course and Treatment: 07/29/17 23:30 PT was seen by the resident Humberto - Lab Interpretations Lab Results: Lab Results 07/29/17 17:40: Urine Color Yellow, Urine Appearance Clear, Urine pH 7.0, Ur Specific [place] 1.010, Urine Protein Negative, Urine Glucose (UA) Negative, Urine Ketones Negative, Urine Blood Negative, Urine Nitrate Negative, Urine Bilirubin Negative, Urine Urobilinogen 0.2, Ur Leukocyte Esterase Negative - Medication Orders Current Medication Orders: Discontinued Medications Hydroxyzine Pamoate (Vistaril) 25 mg PO STAT STA PRN Reason: Protocol Stop: 07/29/17 17:12 Last Admin: 07/29/17 17:24 Dose: 25 mg Pantoprazole Sodium (Protonix Ec Tab) 20 mg PO ONCE ONE Stop: 07/29/17 17:12 Last Admin: 07/29/17 17:24 Dose: 20 mg Disposition/Present on Arrival - Present on Arrival History of DVT/PE: No History of Uncontrolled Diabetes: No Urinary Catheter: No History of Decub. Ulcer: No History Surgical Site Infection Following: None - Disposition Diagnosis: Allergic reaction Disposition: HOME/ ROUTINE Condition: IMPROVED Additional Instructions: Patient is to be discharged home. She was instructed to discontinue taking antibiotic if she believes that caused her allergic reaction. She is to follow up with her primary care physician, Dr. Welch, within 1-3 days. If the patient experiences any new or worsening symptoms, please go to the nearest emergency department. Prescriptions: Pantoprazole [Protonix EC Tab] 20 mg PO DAILY #30 ect Forms: N-1-1 (French)
--- NOTE | 2017-07-29 15:41 | ED PDOC ---
Arrival/HPI - General Chief Complaint: Allergic Reaction Time Seen by Provider: 07/29/17 14:03 Historian: Patient - History of Present Illness Narrative History of Present Illness (Text): 07/29/17 15:54 Patient is a 56 year old female is a poor historian, with PMH noncompliance, low back pain, seizure disorder, arthritis, anxiety, depression, presents for itchiness. The patient was recently in the emergency room for abdominal pain on 07/24/17. She followed up with her primary care physician, Dr. Welch, who gave her an unknown antibiotic. Soon after taking the antibiotic she started to experience severe pruritus throughout her entire body. She called her PMD who told her to take Benadryl which she has attempted to take but did not get any relief with 50mg. She is still experiencing mild abdominal burning discomfort in her LUQ like she had on the 07/24 but it is improved. Denies seizure like activity, bladder/bowel incontinence, saddle anesthesia, sob, diaphoresis, numbness/tingling down her legs, headache, vision changes. Past Medical History - Provider Review Nursing Documentation Reviewed: Yes - Infectious Disease Hx of Infectious Diseases: None - Tetanus Immunization Tetanus Immunization: OTH - Past Medical History Past Medical History: No Previous - Cardiac Hx Cardiac Disorders: Yes (chest pain) Hx Peripheral Edema: Yes (slight right hand) - Pulmonary Hx Bronchitis: Yes - Neurological Hx Neurological Disorder: Yes Hx Dizziness: Yes Hx Migraine: Yes Hx Seizures: Yes (last one 3 month ago) Other/Comment: pt denies numbness/tingling to b/l arms and legs - HEENT Hx HEENT Disorder: No - Renal Hx Renal Disorder: No - Endocrine/Metabolic Hx Endocrine Disorders: Yes Hx Systemic Lupus Erythematosus: Yes - Hematological/Oncological Hx Blood Disorders: No - Integumentary Hx Dermatological Disorder: Yes Hx Psoriasis: Yes Other/Comment: multiple dry patches of skin due to psoriasis, old scars healed to rle and left arm from a fall "yrs ago" in [place], fake nail accidently pulled off sone dried blood around real nail covered with bandaid r hand 2nd finger - Musculoskeletal/Rheumatological Hx Falls: Yes ("years ago in [place]") - Gastrointestinal Hx Gastrointestinal Disorders: Yes Hx Gall Bladder Disease: Yes (stones) - Genitourinary/Gynecological Hx Genitourinary Disorders: Yes Hx Incontinence: Yes (for about 6 months) - Psychiatric Hx Psychophysiologic Disorder: Yes (insomnia) Hx Anxiety: Yes Hx Depression: Yes Hx Substance Use: No - Past Surgical History Past Surgical History: Non-Contributing - Surgical History Hx Cholecystectomy: Yes (gallstones) - Anesthesia Hx Anesthesia: Yes Hx Anesthesia Reactions: No Hx Malignant Hyperthermia: No - Suicidal Assessment Feels Threatened In Home Enviroment: No Family/Social History - Physician Review Nursing Documentation Reviewed: Yes Family/Social History: Unknown Family HX Smoking Status: Never Smoked Hx Alcohol Use: No Hx Substance Use: No Hx Substance Use Treatment: No Allergies/Home Meds Allergies/Adverse Reactions: Allergies morphine Allergy (Verified 06/20/17 16:08) DIZZINESS phenytoin sodium [From Dilantin] Allergy (Verified 06/20/17 16:08) RASH phenytoin sodium extended [From Dilantin] Allergy (Verified 06/20/17 16:08) RASH quetiapine fumarate [From Seroquel] Allergy (Verified 06/20/17 16:08) RASH tramadol Allergy (Verified 06/20/17 16:08) RASH Home Medications: Home Meds Medication Instructions Recorded Confirmed Alprazolam [Xanax] 0.5 mg PO TID 07/17/17 07/24/17 Review of Systems - Physician Review All systems were reviewed & negative as marked: Yes - Review of Systems Constitutional: Normal. absent: Fatigue, Fevers Eyes: Normal. absent: Vision Changes ENT: Normal. absent: Sore Throat, Rhinorrhea, Sinus Congestion Respiratory: Normal. absent: SOB, Cough, Sputum Cardiovascular: Normal. absent: Chest Pain, Palpitations, Edema, Calf Pain Gastrointestinal: Abdominal Pain (LLQ - burning pain). absent: Stool Changes, Constipation, Diarrhea, Nausea, Vomiting, Appetite Changes Genitourinary Female: Normal Musculoskeletal: Normal Skin: Pruritis. absent: Rash, Abscess, Ulcer, Cellulitis Neurological: Normal. absent: Headache, Dizziness Endocrine: Normal. absent: Diaphoresis Hemo/Lymphatic: Normal Psychiatric: Normal Physical Exam Vital Signs Reviewed: Yes Vital Signs Temp Pulse Resp BP Pulse Ox 07/29/17 17:10 99 H 18 131/65 100 07/29/17 15:06 111 H 18 135/69 100 07/29/17 14:01 98.2 F 107 H 18 137/72 100 Temperature: Afebrile Blood Pressure: Normal Pulse: Tachycardic Respiratory Rate: Normal Appearance: Positive for: Well-Appearing, Non-Toxic, Comfortable Pain Distress: None Mental Status: Positive for: Alert and Oriented X 3 - Systems Exam Head: Present: Atraumatic, Normocephalic Pupils: Present: PERRL Extroacular Muscles: Present: EOMI Conjunctiva: Present: Normal Mouth: Present: Moist Mucous Membranes Nose (External): Present: Atraumatic Nose (Internal): Present: Normal Inspection, No Active Bleeding Neck: Present: Normal Range of Motion Respiratory/Chest: Present: Clear to Auscultation, Good Air Exchange. No: Respiratory Distress, Accessory Muscle Use Cardiovascular: Present: Regular Rate and Rhythm, Normal S1, S2. No: Murmurs Abdomen: Present: Tenderness (mild TTP in LUQ), Normal Bowel Sounds. No: Distention, Peritoneal Signs, Guarding, McBurney's Point Tender, Rovsing's Sign Present Back: Present: Normal Inspection Upper Extremity: Present: Normal Inspection. No: Cyanosis, Edema Lower Extremity: Present: Normal Inspection. No: Edema Neurological: Present: GCS=15, CN II-XII Intact, Speech Normal Skin: Present: Warm, Dry, Normal Color. No: Rashes, Diaphoretic, Erythematous, Hot, Cold, Pale, Abscess Lymphatic: No: Cervical Adenopathy Psychiatric: Present: Alert, Oriented x 3, Normal Insight, Normal Concentration Medical Decision Making ED Course and Treatment: 07/29/17 16:25 Patient states she is mainly here for her complaint of pruritus, the burning stomach pain is exactly the same pain that she had worked up last week on 07/24 but is much improved compared to that time. Blood work was normal on 07/24 and her recent admission on 07/17, no indication for new blood work. This pruritus is thought to be an allergic reaction. Patient took Benadryl 50mg this morning, will give Vistaril Will give Protonix for mild abdominal pain Will re-assess. 07/29/17 17:51 Patient is feeling better and would like to go home. Patient advised patient to discontinue antibiotic if she believes that is what caused the reaction and that she needs to follow up with her PMD, Dr. Welch. She understands and agrees with discharge plan. Re-evaluation Time: 17:52 Reassessment Condition: Improved - EKG Interpretation EKG Interpretation (Text): 07/29/17 17:04 Sinus Tachycardia @107 bpm, normal axis, inverted T waves in III, aVR and V1 - similar to EKG on 07/16/17 Interpreted by ED Physician: Yes Type: 12 lead EKG Comparison: Similar to previous EKG - Medication Orders Current Medication Orders: Discontinued Medications Hydroxyzine Pamoate (Vistaril) 25 mg PO STAT STA PRN Reason: Protocol Stop: 07/29/17 17:12 Last Admin: 07/29/17 17:24 Dose: 25 mg Pantoprazole Sodium (Protonix Ec Tab) 20 mg PO ONCE ONE Stop: 07/29/17 17:12 Last Admin: 07/29/17 17:24 Dose: 20 mg Disposition/Present on Arrival - Present on Arrival Any Indicators Present on Arrival: No History of DVT/PE: No History of Uncontrolled Diabetes: No Urinary Catheter: No History of Decub. Ulcer: No History Surgical Site Infection Following: None - Disposition Have Diagnosis and Disposition been Completed?: Yes Diagnosis: Allergic reaction Disposition: HOME/ ROUTINE Disposition Time: 17:55 Patient Plan: Discharge Patient Problems: Current Active Problems Problem Status Onset Allergic reaction Acute Condition: IMPROVED Additional Instructions: Patient is to be discharged home. She was instructed to discontinue taking antibiotic if she believes that caused her allergic reaction. She is to follow up with her primary care physician, Dr. Welch, within 1-3 days. If the patient experiences any new or worsening symptoms, please go to the nearest emergency department. Forms: [email or web address] (Croatian)
[2017-07-29 17:10] VITALS: PULSE 99
[2017-07-29] MEDS ORDERED: Pantoprazole 20 mg EC Tab PO ONE (17:11)
[2017-07-29 17:52] LABS: URINE BILIRUBIN NEGATIVE (NEGATIVE); URINE BLOOD NEGATIVE (NEGATIVE); URINE GLUCOSE (UA) NEGATIVE (NEGATIVE); URINE LEUKOCYTE ESTERASE NEGATIVE Leu/uL (NEGATIVE); URINE PROTEIN NEGATIVE mg/dL (<30 mg/dL); URINE UROBILINOGEN 0.2 E.U./dL (<1 E.U./dL)
[2017-07-29 17:54] LABS: URINE APPEARANCE CLEAR (CLEAR); URINE COLOR YELLOW (YELLOW)
[2017-07-29 18:24] VITALS: BP 134/82
--- NOTE | 2017-07-29 22:19 | CARD ---
APPROVED REPORT EKG Measurement Heart [id number] <Conclusion> Poor data quality, interpretation may be adversely affected Sinus tachycardia Otherwise normal ECG
== END 2017-07-29 18:24 | disposition home or self-care (01) ==
LOC: ED 13:46
DX: T78.49XA Other allergy, initial encounter (principal); X58.XXXA Exposure to other specified factors, initial encounter
CPT/HCPCS: 81003; 93005; 99284; Q0177

== ENCOUNTER 2017-08-21 14:37 | Emergency (ER) | payer MEDICAID ==
[2017-08-21 14:37] VITALS: BMI 27.4
[2017-08-21 15:08] VITALS: BP 132/71; PULSE 86; RESP 18; TEMP 98.3; O2SAT 98
--- NOTE | 2017-08-21 15:19 | ED PDOC ---
Arrival/HPI - General Chief Complaint: Abdominal Pain Time Seen by Provider: 08/21/17 14:53 - History of Present Illness Narrative History of Present Illness (Text): 08/21/17 15:19 Patient is a 56 year old female is a poor historian, with PMH noncompliance, low back pain, seizure disorder, arthritis, anxiety, depression, presents to this ED c/o abdominal pain since yesterday. Patient also noted feeling nauseous , and has one episode of diarrhea early this morning. On the contrary of triage note, patient denies vomiting. Patient denies urinary symptoms, sob, cp , vaginal bleeding, syncope, seizures, or abnormal gait. Time/Duration: Other (see hpi) Context: Home Past Medical History - Provider Review Nursing Documentation Reviewed: Yes - Infectious Disease Hx of Infectious Diseases: None - Tetanus Immunization Tetanus Immunization: Unknown - Reproductive Menopause: Yes - Past Medical History Past Medical History: No Previous - Cardiac Hx Cardiac Disorders: Yes Hx Hypertension: No Hx Peripheral Edema: Yes (slight right hand) - Pulmonary Hx Respiratory Disorders: Yes Hx Bronchitis: Yes - Neurological Hx Neurological Disorder: Yes Hx Migraine: Yes Hx Seizures: Yes (last one 3 month ago) - HEENT Hx HEENT Disorder: No - Renal Hx Renal Disorder: No - Endocrine/Metabolic Hx Endocrine Disorders: Yes Hx Systemic Lupus Erythematosus: Yes - Hematological/Oncological Hx Blood Disorders: No Hx AIDS: No - Integumentary Hx Dermatological Disorder: Yes Hx Psoriasis: Yes Other/Comment: multiple dry patches of skin due to psoriasis, old scars healed to rle and left arm from a fall "yrs ago" in [place], fake nail accidently pulled off sone dried blood around real nail covered with bandaid r hand 2nd finger - Musculoskeletal/Rheumatological Hx Musculoskeletal Disorders: Yes Hx Arthritis: Yes Hx Back Pain: Yes Hx Falls: Yes - Gastrointestinal Hx Gastrointestinal Disorders: Yes Hx Gall Bladder Disease: Yes (stones) - Genitourinary/Gynecological Hx Genitourinary Disorders: No Hx Sexually Transmitted Diseases: No - Psychiatric Hx Psychophysiologic Disorder: Yes Hx Anxiety: Yes Hx Depression: Yes Hx Substance Use: Yes - Past Surgical History Past Surgical History: Non-Contributing - Surgical History Hx Cholecystectomy: Yes (gallstones) - Anesthesia Hx Anesthesia: Yes Hx Anesthesia Reactions: No Hx Malignant Hyperthermia: No - Suicidal Assessment Feels Threatened In Home Enviroment: No Family/Social History - Physician Review Nursing Documentation Reviewed: Yes Family/Social History: Other (noncontributory) Smoking Status: Never Smoked Hx Alcohol Use: No Hx Substance Use: Yes Hx Substance Use Treatment: No Allergies/Home Meds Allergies/Adverse Reactions: Allergies morphine Allergy (Verified 08/21/17 14:43) DIZZINESS quetiapine fumarate [From Seroquel] Allergy (Verified 08/21/17 15:38) RASH tramadol Allergy (Verified 08/21/17 14:43) RASH Review of Systems - Review of Systems Constitutional: Normal. absent: Fatigue, Weight Change, Fevers, Night Sweats Eyes: Normal ENT: Normal Respiratory: Normal Cardiovascular: Normal Gastrointestinal: Abdominal Pain, Diarrhea, Nausea. absent: Vomiting Genitourinary Female: Normal. absent: Dysuria, Frequency, Hematuria, Vaginal Bleeding, Vaginal Discharge Musculoskeletal: Normal. absent: Back Pain, Neck Pain, Joint Swelling Skin: Normal. absent: Rash Neurological: Normal. absent: Headache, Dizziness, Focal Weakness, Gait Changes , Speech Changes, Facial Droop, Disequilibrium, Seizure Endocrine: Normal Hemo/Lymphatic: Normal Psychiatric: Normal Physical Exam Vital Signs Temp Pulse Resp BP Pulse Ox 08/21/17 15:08 98.3 F 86 18 132/71 98 Temperature: Afebrile Blood Pressure: Normal Pulse: Regular Respiratory Rate: Normal Appearance: Positive for: Well-Appearing, Non-Toxic, Comfortable Pain Distress: None Mental Status: Positive for: Alert and Oriented X 3 - Systems Exam Head: Present: Atraumatic, Normocephalic Pupils: Present: PERRL Extroacular Muscles: Present: EOMI Conjunctiva: Present: Normal Mouth: Present: Moist Mucous Membranes Neck: Present: Normal Range of Motion Respiratory/Chest: Present: Clear to Auscultation, Good Air Exchange. No: Respiratory Distress, Accessory Muscle Use Cardiovascular: Present: Regular Rate and Rhythm, Normal S1, S2. No: Murmurs Abdomen: No: Tenderness, Distention, Peritoneal Signs Back: Present: Normal Inspection. No: CVA Tenderness Upper Extremity: Present: Normal Inspection, Normal ROM. No: Cyanosis, Edema Lower Extremity: Present: Normal Inspection, Normal ROM. No: Edema Neurological: Present: GCS=15, CN II-XII Intact, Speech Normal Skin: Present: Warm, Dry, Normal Color. No: Rashes Psychiatric: Present: Alert, Oriented x 3, Normal Insight, Normal Concentration Medical Decision Making ED Course and Treatment: 08/21/17 15:40 Patient came to this ED c/o abdominal pain. Patient has multiple visit for same complain. Last CT scan of abdomen/pelvis was 6 days ago, and it was negative. Plan -labs -IVF -Toradol 15 mg IVP -Zofran 4 mg IVP -Revaluation 08/21/17 16:23 Patient stated she feels better. She stated she needs to leave soon. I told patient to wait till IVF is finished 08/21/17 17:01 RN notified me patient had ELOPED. Patient is not in her room. - Lab Interpretations Lab Results: 08/21/17 16:00 08/21/17 16:00 Lab Results 08/21/17 16:20: Urine Color Yellow, Urine Appearance Clear, Urine pH 7.5, Ur Specific [place] 1.015, Urine Protein Negative, Urine Glucose (UA) Negative, Urine Ketones Negative, Urine Blood Negative, Urine Nitrate Negative, Urine Bilirubin Negative, Urine Urobilinogen 0.2, Ur Leukocyte Esterase Negative 08/21/17 16:00: Sodium 147, Potassium 4.5, Chloride 104, Carbon Dioxide 29, Anion Gap 19, BUN 9, Creatinine 0.6 L, Est GFR ( Amer) > 60, Est GFR (Non -Af Amer) > 60, Random Glucose 120 H, Calcium 9.9, Magnesium 2.0, Total Bilirubin 0.6, AST 29, ALT 24, Alkaline Phosphatase 88, Total Protein 8.5 H, Albumin 4.5, Globulin 4.0, Albumin/Globulin Ratio 1.1, Lipase 86 08/21/17 16:00: WBC 5.5 D, RBC 4.97, Hgb 15.1, Hct 43.3, MCV 87.1, MCH 30.4, MCHC 34.9, RDW 14.1, Plt Count 244, MPV 9.7, Gran % 63.2, Lymph % (Auto) 25.8, [place] % (Auto) 8.2 H, Eos % (Auto) 2.4, Baso % (Auto) 0.4, Gran # 3.46, Lymph # ( Auto) 1.4, [place] # (Auto) 0.5, Eos # (Auto) 0.1, Baso # (Auto) 0.02 I have reviewed the lab results: Yes Interpretation: No clinic. lab abnormalty - Medication Orders Current Medication Orders: Discontinued Medications Sodium Chloride (Sodium Chloride 0.9%) 1,000 mls @ 999 mls/hr IV .Q1H1M STA Stop: 08/21/17 16:20 Last Admin: 08/21/17 15:57 Dose: 999 mls/hr eMAR Start Stop Document 08/21/17 15:57 OCS (Rec: 08/21/17 15:57 OCS [id number]) Intravenous Solution Start Date 08/21/17 Start Time 15:57 End Date 08/21/17 End time 16:58 Total Infusion Time 61 Ketorolac Tromethamine (Toradol) 15 mg IVP STAT STA Stop: 08/21/17 15:43 Last Admin: 08/21/17 15:56 Dose: 15 mg MAR Pain Assessment Document 08/21/17 15:56 OCS (Rec: 08/21/17 15:56 OCS [id number]) Pain Reassessment Is this a pain reassessment? Yes Sleep Is patient sleeping during reassessment? No Presence of Pain Presence of Pain Yes Pain Scale Used Pain Scale Used Numeric Location Left, Right or Bilateral Bilateral Pain Location Body Site Abdomen Description Description Constant Intensity of Pain at present 8 Aggravating Factors ADL's IVP Administration Document 08/21/17 15:56 OCS (Rec: 08/21/17 15:56 OCS [id number]) Charges for Administration # of IVP Administrations 1 Ondansetron HCl (Zofran Inj) 4 mg IVP STAT STA Stop: 08/21/17 15:21 Last Admin: 08/21/17 15:56 Dose: 4 mg IVP Administration Document 08/21/17 15:56 OCS (Rec: 08/21/17 15:56 OCS [id number]) Charges for Administration # of IVP Administrations 1 Disposition/Present on Arrival - Present on Arrival Any Indicators Present on Arrival: No History of DVT/PE: No History of Uncontrolled Diabetes: No Urinary Catheter: No History of Decub. Ulcer: No History Surgical Site Infection Following: None - Disposition Have Diagnosis and Disposition been Completed?: Yes Diagnosis: Nonspecific abdominal pain Disposition: ELOPEMENT - ER ONLY Disposition Time: 17:05 Condition: UNKNOWN Forms: [employer] (Colombian)
[2017-08-21] MEDS ORDERED: Sodium Chloride 0.9% 1,000 ML IV STA (15:20)
[2017-08-21 16:03] LABS: BASO # 0.02 K/mm3 (0.0-2.0); BASO % 0.4 % (0.0-3.0); EOS # 0.1 (0.0-0.7); EOS % 2.4 % (1.5-5.0); GRAN # 3.46 (1.4-6.5); GRAN % 63.2 % (50.0-68.0); HEMOGLOBIN 15.1 g/dL (12.0-16.0); LYMPH # 1.4 (1.2-3.4); LYMPH % 25.8 % (22.0-35.0); MEAN CELL VOLUME 87.1 fl (80.0-105.0); MEAN CORPUSCULAR HEMOGLOBIN 30.4 pg (25.0-35.0); MEAN CORPUSCULAR HGB CONC 34.9 g/dl (31.0-37.0); MEAN PLATELET VOLUME 9.7 fl (7.0-11.0); MONO # 0.5 (0.1-0.6); MONO % 8.2 % (1.0-6.0); RBC 4.97 10^6/uL (3.5-6.1); RED CELL DISTRIBUTION WIDTH 14.1 % (11.5-14.5); WHITE BLOOD COUNT 5.5 10^3/ul (4.5-11.0)
[2017-08-21 16:25] LABS: ALB/GLOB RATIO 1.1 (1.1-1.8); ALBUMIN 4.5 g/dL (3.0-4.8); ALT/SGPT 24 U/L (7-56); AST/SGOT 29 U/L (14-36); BLOOD UREA NITROGEN 9 mg/dL (7-21); CALCIUM 9.9 mg/dL (8.4-10.5); GFR AFRICAN-AMERICAN > 60; GFR NON-AFRICAN AMERICAN > 60; LIPASE 86 U/L (23-300)
[2017-08-21 16:28] LABS: PH,URINE 7.5 (4.7-8.0); URINE BILIRUBIN NEGATIVE (NEGATIVE); URINE BLOOD NEGATIVE (NEGATIVE); URINE GLUCOSE (UA) NEGATIVE (NEGATIVE); URINE LEUKOCYTE ESTERASE NEGATIVE Leu/uL (NEGATIVE); URINE PROTEIN NEGATIVE mg/dL (<30 mg/dL); URINE UROBILINOGEN 0.2 E.U./dL (<1 E.U./dL)
[2017-08-21 16:29] LABS: URINE APPEARANCE CLEAR (CLEAR); URINE COLOR YELLOW (YELLOW)
== END 2017-08-21 17:01 | disposition left against medical advice (07) ==
LOC: ED 14:37
DX: R10.9 Unspecified abdominal pain (principal); M32.9 Systemic lupus erythematosus, unspecified
CPT/HCPCS: 80053; 81003; 83690; 83735; 85025; 96361; 96374; 96375; 99283; J1885; J2405; J7040

== ENCOUNTER 2018-01-19 14:22 | Emergency (ER) | payer MEDICAID ==
[2018-01-19 14:25] VITALS: BMI 32.0
[2018-01-19 14:39] VITALS: RESP 16; TEMP 98; O2SAT 100
--- NOTE | 2018-01-19 15:03 | ED PDOC ---
Arrival/HPI - General Chief Complaint: Female Genitourinary Time Seen by Provider: 01/19/18 14:25 Historian: Patient - History of Present Illness Narrative History of Present Illness (Text): 01/19/18 14:55 A 57 year old female, whose past medical history includes urinary tract infections, gastritis and anxiety, presents to the emergency department complaining of incontinence. Patient reports she has had incontinence for years. She has been unable to see a urologist because she has Medicaid. States also experiencing lower abdominal pain that is worsening. Patient has no other complaints and no new symptoms at this time. No PMD Past Medical History - Provider Review Nursing Documentation Reviewed: Yes - Infectious Disease Hx of Infectious Diseases: None - Tetanus Immunization Tetanus Immunization: Unknown - Past Medical History Past Medical History: No Previous - Cardiac Hx Cardiac Disorders: Yes Hx Peripheral Edema: Yes - Pulmonary Hx Respiratory Disorders: Yes Hx Bronchitis: Yes - Neurological Hx Neurological Disorder: Yes Hx Migraine: Yes Hx Seizures: Yes - HEENT Hx HEENT Disorder: No - Renal Hx Renal Disorder: No - Endocrine/Metabolic Hx Endocrine Disorders: Yes Hx Systemic Lupus Erythematosus: Yes - Hematological/Oncological Hx Blood Disorders: No Hx AIDS: No - Integumentary Hx Dermatological Disorder: Yes Hx Psoriasis: Yes - Musculoskeletal/Rheumatological Hx Musculoskeletal Disorders: Yes Hx Arthritis: Yes - Gastrointestinal Hx Gastrointestinal Disorders: Yes Hx Gall Bladder Disease: Yes (stones) - Genitourinary/Gynecological Hx Genitourinary Disorders: Yes Hx Incontinence: Yes - Psychiatric Hx Psychophysiologic Disorder: Yes Hx Anxiety: Yes Hx Depression: Yes Hx Substance Use: No (denies) - Past Surgical History Past Surgical History: Non-Contributing - Surgical History Hx Cholecystectomy: Yes - Anesthesia Hx Anesthesia: Yes Hx Anesthesia Reactions: No Hx Malignant Hyperthermia: No - Suicidal Assessment Feels Threatened In Home Enviroment: No Family/Social History - Physician Review Nursing Documentation Reviewed: Yes Family/Social History: No Known Family HX Smoking Status: Never Smoked Hx Alcohol Use: No Hx Substance Use: No (denies) Hx Substance Use Treatment: No Allergies/Home Meds Allergies/Adverse Reactions: Allergies morphine Allergy (Verified 01/19/18 14:31) DIZZINESS quetiapine fumarate [From Seroquel] Allergy (Verified 01/19/18 14:31) RASH tramadol Allergy (Verified 01/19/18 14:31) RASH Home Medications: Home Meds Medication Instructions Recorded Confirmed Alprazolam [Xanax] 0.5 mg PO TID 09/11/17 09/11/17 Sumatriptan Succinate [Imitrex] 100 mg PO BID 09/11/17 09/11/17 Review of Systems - Physician Review All systems were reviewed & negative as marked: Yes - Review of Systems Gastrointestinal: Abdominal Pain (lower region) Genitourinary Female: Dysuria, Other (incontinence) Physical Exam Vital Signs Reviewed: Yes Vital Signs Temp Pulse Resp BP Pulse Ox 01/19/18 14:38 98.0 F 107 H 16 152/79 H 100 Temperature: Afebrile Blood Pressure: Normal Pulse: Regular Respiratory Rate: Normal Appearance: Positive for: Well-Appearing, Non-Toxic, Comfortable Pain Distress: None Mental Status: Positive for: Alert and Oriented X 3 - Systems Exam Head: Present: Atraumatic, Normocephalic Pupils: Present: PERRL Extroacular Muscles: Present: EOMI Conjunctiva: Present: Normal Mouth: Present: Moist Mucous Membranes Neck: Present: Normal Range of Motion Respiratory/Chest: Present: Clear to Auscultation, Good Air Exchange. No: Respiratory Distress, Accessory Muscle Use Cardiovascular: Present: Regular Rate and Rhythm, Normal S1, S2. No: Murmurs Abdomen: No: Tenderness, Distention, Peritoneal Signs Back: Present: Normal Inspection Upper Extremity: Present: Normal Inspection. No: Cyanosis, Edema Lower Extremity: Present: Normal Inspection. No: Edema Neurological: Present: GCS=15, CN II-XII Intact, Speech Normal Skin: Present: Warm, Dry, Normal Color. No: Rashes Psychiatric: Present: Alert, Oriented x 3, Normal Insight, Normal Concentration Medical Decision Making ED Course and Treatment: 01/19/18 14:58 Impression: 57 year old female with incontinence and lower abdominal pain. No acute findings on physical examination. Plan: -- Labs -- Urinalysis -- Urine Culture -- Reassess and disposition Prior Visits: Notes and results from previous visits were reviewed. Patient was last seen in the emergency department on 08/15/2017 for lower abdominal pain, syncopal episodes, and dehydration. Progress Notes: 01/19/18 15:00 Abd/Pelvis CT performed on 08/15/2017 shows: No acute abnormality. Granulomatous splenic calcifications. Status post cholecystectomy. 01/19/18 17:28 FINDINGS: Limited visualization of the urinary bladder. Prevoid urinary bladder measures 6.0 x 4.7 x 9.9 cm, calculated volume 194.6 mL. Postvoid urinary bladder measures 3.5 x 3.4 x 4.0 cm, calculated volume 24.6 mL. Bilateral ureteral jets are not identified. IMPRESSION: Prevoid urinary bladder volume 194.6 mL. Postvoid urinary bladder volume 24.6 mL. Bilateral ureteral jets are not identified. 01/19/18 18:38 Xander, Patient marketing development representative spoke with patient at length. He offered patient list of urologists who take medicaid which patient refuses. patient is complaining of chronic incontinence and pelvic floor weakness. - Scribe Statement The provider has reviewed the documentation as recorded by the Meng Prado Provider Scribe Attestation: All medical record entries made by the Scribe were at my direction and personally dictated by me. I have reviewed the chart and agree that the record accurately reflects my personal performance of the history, physical exam, medical decision making, and the department course for this patient. I have also personally directed, reviewed, and agree with the discharge instructions and disposition. Disposition/Present on Arrival - Present on Arrival Any Indicators Present on Arrival: No History of DVT/PE: No History of Uncontrolled Diabetes: No Urinary Catheter: No History of Decub. Ulcer: No History Surgical Site Infection Following: None - Disposition Have Diagnosis and Disposition been Completed?: Yes Diagnosis: UTI (urinary tract infection) Disposition: HOME/ ROUTINE Disposition Time: 17:29 Patient Plan: Discharge Condition: GOOD Discharge Instructions (ExitCare): Urinary Tract Infection, Adult (DC) Additional Instructions: Follow-up with urologist for further evaluation. Return to ED if condition worsens. Take full course of antibiotics Prescriptions: Cephalexin [Keflex] 500 mg PO TID #30 capsule Referrals: Nancy Welch MD [Primary Care Provider] - Follow up with primary Tita Turner MD [Staff Provider] - Follow up with primary Forms: [employer] ([place]se)
[2018-01-19 15:30] LABS: URINE BILIRUBIN NEGATIVE (NEGATIVE); URINE BLOOD NEGATIVE (NEGATIVE); URINE GLUCOSE (UA) NEGATIVE (NEGATIVE); URINE LEUKOCYTE ESTERASE SMALL Leu/uL (NEGATIVE); URINE PROTEIN NEGATIVE mg/dL (<30 mg/dL); URINE UROBILINOGEN 0.2 E.U./dL (<1 E.U./dL)
[2018-01-19 15:37] LABS: URINE APPEARANCE CLEAR (CLEAR); URINE COLOR LIGHT YELLOW (YELLOW)
[2018-01-19 15:44] LABS: URINE BACTERIA MANY (NEG); URINE RBC 0 - 2 /hpf (0-2)
[2018-01-19 16:14] LABS: BLOOD UREA NITROGEN 15 mg/dL (7-21); CALCIUM 9.9 mg/dL (8.4-10.5); GFR NON-AFRICAN AMERICAN > 60
[2018-01-19 17:03] LABS: BASO # 0.02 K/mm3 (0.0-2.0); BASO % 0.3 % (0.0-3.0); EOS # 0.1 (0.0-0.7); EOS % 1.2 % (1.5-5.0); GRAN # 5.5 (1.4-6.5); GRAN % 73.5 % (50.0-68.0); HEMOGLOBIN 14.3 g/dL (12.0-16.0); LYMPH # 1.5 (1.2-3.4); LYMPH % 20.6 % (22.0-35.0); MEAN CORPUSCULAR HEMOGLOBIN 30.2 pg (25.0-35.0); MEAN CORPUSCULAR HGB CONC 35.5 g/dl (31.0-37.0); MONO # 0.3 (0.1-0.6); MONO % 4.4 % (1.0-6.0); RBC 4.74 10^6/uL (3.5-6.1); RED CELL DISTRIBUTION WIDTH 14.4 % (11.5-14.5); WHITE BLOOD COUNT 7.5 10^3/ul (4.5-11.0)
--- NOTE | 2018-01-19 17:26 | US ---
Date of service: 01/19/2018 PROCEDURE: Bladder only/residual urine ultrasound HISTORY: suprapubic pressure, R/O prolapsed BLADDER COMPARISON: CT abdomen pelvis without contrast performed 07/17/17 FINDINGS: Limited visualization of the urinary bladder. Prevoid urinary bladder measures 6.0 x 4.7 x 9.9 cm, calculated volume 194.6 mL. Postvoid urinary bladder measures 3.5 x 3.4 x 4.0 cm, calculated volume 24.6 mL. Bilateral ureteral jets are not identified. IMPRESSION: Prevoid urinary bladder volume 194.6 mL. Postvoid urinary bladder volume 24.6 mL. Bilateral ureteral jets are not identified.
[2018-01-19 17:38] VITALS: BP 140/86; PULSE 96
== END 2018-01-19 18:11 | disposition home or self-care (01) ==
LOC: ED 14:22
DX: N39.0 Urinary tract infection, site not specified (principal)

== ENCOUNTER 2018-02-12 11:16 | Emergency (ER) | payer MEDICAID ==
[2018-02-12 11:25] VITALS: BMI 29.3
[2018-02-12] MEDS ORDERED: Sodium Chloride 0.9% 1,000 ML IV ONE (11:39)
--- NOTE | 2018-02-12 11:47 | ED PDOC ---
Arrival/HPI - General Chief Complaint: Headache Time Seen by Provider: 02/12/18 11:19 Historian: Patient - History of Present Illness Narrative History of Present Illness (Text): 02/12/18 11:38 57 year old female, whose past medical history includes Anxiety (On Xanax), seizure disorder (On Dilantin), and Migraines, presents to the emergency department complaining of frontal headache that woke her up from sleep 6-7 hours ago (5:50AM). Patient reports she has a history of migraines, but reports the pain slightly different. She denies taking anything for the pain. Patient did not take her dose of Xanax or Dilantin today. Patient denies any fever, chills, chest pain, shortness of breath, nausea, vomiting, diarrhea, urinary symptoms, back pain, neck pain, dizziness, or any other complaints. PMD: Dr. Welch Time/Duration: Other (6-7 hours ago) Symptom Onset: Sudden Activities at Onset: Sleeping Context: Home Past Medical History - Provider Review Nursing Documentation Reviewed: Yes - Infectious Disease Hx of Infectious Diseases: None - Tetanus Immunization Tetanus Immunization: Unknown - Reproductive Menopause: Yes - Past Medical History Past Medical History: No Previous - Cardiac Hx Cardiac Disorders: Yes Hx Peripheral Edema: Yes - Pulmonary Hx Respiratory Disorders: Yes Hx Bronchitis: Yes - Neurological Hx Neurological Disorder: Yes Hx Migraine: Yes Hx Seizures: Yes - HEENT Hx HEENT Disorder: No - Renal Hx Renal Disorder: No - Endocrine/Metabolic Hx Endocrine Disorders: Yes Hx Systemic Lupus Erythematosus: Yes - Hematological/Oncological Hx Blood Disorders: No Hx AIDS: No - Integumentary Hx Dermatological Disorder: Yes Hx Psoriasis: Yes - Musculoskeletal/Rheumatological Hx Musculoskeletal Disorders: Yes Hx Arthritis: Yes - Gastrointestinal Hx Gastrointestinal Disorders: Yes Hx Gall Bladder Disease: Yes (stones) - Genitourinary/Gynecological Hx Genitourinary Disorders: Yes Hx Incontinence: Yes - Psychiatric Hx Psychophysiologic Disorder: Yes Hx Anxiety: Yes Hx Depression: Yes Hx Substance Use: No (denies) - Past Surgical History Past Surgical History: Non-Contributing - Surgical History Hx Cholecystectomy: Yes - Anesthesia Hx Anesthesia: Yes Hx Anesthesia Reactions: No Hx Malignant Hyperthermia: No - Suicidal Assessment Feels Threatened In Home Enviroment: No Family/Social History - Physician Review Nursing Documentation Reviewed: Yes Family/Social History: No Known Family HX Smoking Status: Never Smoked Hx Alcohol Use: No Hx Substance Use: No (denies) Hx Substance Use Treatment: No Allergies/Home Meds Allergies/Adverse Reactions: Allergies morphine Allergy (Verified 02/12/18 11:25) DIZZINESS quetiapine fumarate [From Seroquel] Allergy (Verified 02/12/18 11:25) RASH tramadol Allergy (Verified 02/12/18 11:25) RASH Home Medications: Home Meds Medication Instructions Recorded Confirmed Alprazolam [Xanax] 0.5 mg PO TID 09/11/17 02/12/18 Review of Systems - Physician Review All systems were reviewed & negative as marked: Yes - Review of Systems Constitutional: absent: Fevers, Other (Chills) Respiratory: absent: SOB Cardiovascular: absent: Chest Pain Gastrointestinal: absent: Diarrhea, Nausea, Vomiting Musculoskeletal: absent: Back Pain, Neck Pain Neurological: Headache. absent: Dizziness Physical Exam Vital Signs Reviewed: Yes Vital Signs Temp Pulse Resp BP Pulse Ox 02/12/18 11:17 98.9 F 125 H 17 145/80 98 Temperature: Afebrile Blood Pressure: Normal Pulse: Tachycardic Respiratory Rate: Normal Appearance: Positive for: Well-Appearing, Non-Toxic, Comfortable Pain Distress: None Mental Status: Positive for: Alert and Oriented X 3 - Systems Exam Head: Present: Atraumatic, Normocephalic Pupils: Present: PERRL Extroacular Muscles: Present: EOMI Conjunctiva: Present: Normal Mouth: Present: Moist Mucous Membranes Neck: Present: Normal Range of Motion Respiratory/Chest: Present: Clear to Auscultation, Good Air Exchange. No: Respiratory Distress, Accessory Muscle Use Cardiovascular: Present: Regular Rate and Rhythm, Normal S1, S2. No: Murmurs Abdomen: No: Tenderness, Distention, Peritoneal Signs Back: Present: Normal Inspection Upper Extremity: Present: Normal Inspection. No: Cyanosis, Edema Lower Extremity: Present: Normal Inspection. No: Edema Neurological: Present: GCS=15, CN II-XII Intact, Speech Normal Skin: Present: Warm, Dry, Normal Color. No: Rashes Psychiatric: Present: Alert, Oriented x 3, Normal Insight, Normal Concentration Medical Decision Making ED Course and Treatment: 02/12/18 11:38 Impression: 57 year old female presents complaining of frontal headache that woke her up 6-7 hours ago. Patient's past medical history includes migraines. Plan: -- Head CT w/o Contrast -- EKG -- labs -- IV Fluids -- Toradol, IV Fluids -- Urinalysis -- Reassess and disposition Prior Visits: Notes and results from previous visits were reviewed. Progress Notes: 02/12/18 11:40 EKG shows Sinus Tachycardia at 122 BPM. Interpreted by me. 02/12/18 13:07 Patient refused D-Dimer test and says she is allergic to IV Dilantin, but can take PO Dilantin PROCEDURE: CT HEAD WITHOUT CONTRAST. Dictator : Saray Choi MD Report Date : 02/12/2018 12:46:56 IMPRESSION: No acute intracranial pathology identified. 5 mm hypodensity in the left middle cranial fossa likely chronic lacunar infarct. 02/12/18 15:22 Patient refused D-Dimer and is persistently tachycardic with all ER visits. Patient is refusing Tylenol and second dose of Dilantin. Patient is in no acute distress. I have discussed the results and plan with the patient, who expresses understanding. Patient in agreement with plan to be discharged home. Patient is stable for discharge. Patient was instructed to follow up with physician or return if symptoms worsen or new concerning symptoms arise. - Lab Interpretations I have reviewed the lab results: Yes - EKG Interpretation Interpreted by ED Physician: Yes Type: 12 lead EKG - Scribe Statement The provider has reviewed the documentation as recorded by the Meng Hoffman Provider Scribe Attestation: All medical record entries made by the Scribe were at my direction and personally dictated by me. I have reviewed the chart and agree that the record accurately reflects my personal performance of the history, physical exam, medical decision making, and the department course for this patient. I have also personally directed, reviewed, and agree with the discharge instructions and disposition. Disposition/Present on Arrival - Present on Arrival Any Indicators Present on Arrival: No History of DVT/PE: No History of Uncontrolled Diabetes: No Urinary Catheter: No History of Decub. Ulcer: No History Surgical Site Infection Following: None - Disposition Have Diagnosis and Disposition been Completed?: Yes Diagnosis: Headache Disposition: HOME/ ROUTINE Disposition Time: 13:30 Condition: IMPROVED Discharge Instructions (ExitCare): Migraine Headache (DC) Additional Instructions: RICHARD REN, thank you for letting us take care of you today. The emergency medical care you received today was directed at your acute symptoms. If you were prescribed any medication, please fill it and take as directed. It may take several days for your symptoms to resolve. Return to the Emergency Department if your symptoms worsen, do not improve, or if you have any other problems. Please contact your doctor or call one of the physicians/clinics you have been referred to that are listed on the Patient Visit Information form that is included in your discharge packet. Bring any paperwork you were given at discharge with you along with any medications you are taking to your follow up visit. Our treatment cannot replace ongoing medical care by a primary care provider outside of the emergency department. Thank you for allowing the [facility] team to be part of your care today. TAKE YOUR DILANTIN. THERE WAS NO MEDICINE DETECTED IN YOUR BLOOD. Follow up with your primary doctor in 2-3 days for re-evaluation and further management. Prescriptions: Ibuprofen [Motrin] 600 mg PO Q6 PRN #20 tab PRN Reason: Pain, Moderate (4-7) Referrals: Nancy Welch MD [Family Provider] - Follow up with primary Forms: [employer] ([place]ib[place]ian)
[2018-02-12 12:14] VITALS: RESP 18
[2018-02-12 12:24] LABS: BASO # 0.01 K/mm3 (0.0-2.0); BASO % 0.2 % (0.0-3.0); EOS # 0.1 (0.0-0.7); GRAN # 3.66 (1.4-6.5); HEMOGLOBIN 14.4 g/dL (12.0-16.0); LYMPH # 1.7 (1.2-3.4); LYMPH % 29.1 % (22.0-35.0); MEAN CELL VOLUME 86.1 fl (80.0-105.0); MEAN CORPUSCULAR HEMOGLOBIN 29.1 pg (25.0-35.0); MEAN CORPUSCULAR HGB CONC 33.8 g/dl (31.0-37.0); MEAN PLATELET VOLUME 10.4 fl (7.0-11.0); MONO # 0.4 (0.1-0.6); MONO % 6.7 % (1.0-6.0); RBC 4.95 10^6/uL (3.5-6.1); RED CELL DISTRIBUTION WIDTH 15.1 % (11.5-14.5); WHITE BLOOD COUNT 5.8 10^3/uL (4.5-11.0)
[2018-02-12 12:32] LABS: TROPONIN I < 0.01 ng/mL
[2018-02-12] MEDS ORDERED: Phenytoin 100 mg/4 ml Oral Susp UD PO STA ×2 (12:39→14:51)
--- NOTE | 2018-02-12 12:50 | CT ---
Date of service: 02/12/2018 PROCEDURE: CT HEAD WITHOUT CONTRAST. HISTORY: r/o ICH COMPARISON: Noncontrast head CT performed 01/23/17 TECHNIQUE: Axial computed tomography images were obtained through the head/brain without intravenous contrast. Radiation dose: Total exam DLP = 751.15 mGy-cm. This CT exam was performed using one or more of the following dose reduction techniques: Automated exposure control, adjustment of the mA and/or kV according to patient size, and/or use of iterative reconstruction technique. FINDINGS: Mild streak artifact limits evaluation of the skull base. HEMORRHAGE: No intracranial hemorrhage. BRAIN: No mass effect or edema. 5 mm hypodensity in the left middle cranial fossa likely chronic lacunar infarct. The fry-white matter differentiation appears otherwise intact. Please note that MRI with diffusion imaging is more sensitive in the detection of acute ischemic event. VENTRICLES: No hydrocephalus. CALVARIUM: Unremarkable. PARANASAL SINUSES: Unremarkable as visualized. No significant inflammatory changes. MASTOID AIR CELLS: Unremarkable as visualized. No inflammatory changes. OTHER FINDINGS: None. IMPRESSION: No acute intracranial pathology identified. 5 mm hypodensity in the left middle cranial fossa likely chronic lacunar infarct.
[2018-02-12 12:57] LABS: ALB/GLOB RATIO 1.2 (1.1-1.8); ALBUMIN 4.4 g/dL (3.0-4.8); ALT/SGPT 24 U/L (7-56); AST/SGOT 24 U/L (14-36); BLOOD UREA NITROGEN 8 mg/dL (7-21); CALCIUM 9.8 mg/dL (8.4-10.5); GFR NON-AFRICAN AMERICAN > 60
[2018-02-12 15:24] VITALS: BP 132/80; PULSE 120; TEMP 98.4; O2SAT 99
--- NOTE | 2018-02-12 22:45 | CARD ---
APPROVED REPORT Date of service: 02/12/2018 EKG Measurement Heart [id number] <Conclusion> Sinus tachycardia Nonspecific ST abnormality Abnormal ECG
== END 2018-02-12 15:26 | disposition home or self-care (01) ==
LOC: ED 11:16
DX: R51 Headache (principal); M32.9 Systemic lupus erythematosus, unspecified
CPT/HCPCS: 70450; 80053; 80185; 82550; 83615; 83735; 84484; 85025; 93005; 96361; 96374; 99285; J1885; J7030

== ENCOUNTER 2018-03-20 17:17 | Emergency (ER) | payer MEDICAID ==
[2018-03-20 17:18] VITALS: BMI 29.3
[2018-03-20 17:32] VITALS: TEMP 98.8; O2SAT 100
--- NOTE | 2018-03-20 18:50 | ED PDOC ---
Arrival/HPI - General Chief Complaint: Chest Pain Time Seen by Provider: 03/20/18 17:44 Historian: Patient - History of Present Illness Narrative History of Present Illness (Text): 03/20/18 19:23 57 year old female with PMH noncompliance, low back pain, seizure disorder, arthritis, anxiety, depression, HTN presents for intermittent mid chest pain with palpitations which started at 3 pm today while at home, sitting and watching TV. Reports that there are no relieving or exacerbating factors. Otherwise: (-) radiation, (-) diaphoresis, (-) dyspnea, (-) pleuritic component, (-) ripping or tearing quality, (-) positional component, (-) exertional component, (-) dizziness, (-) syncope, (-) nausea, (-) vomiting, (-) calf swelling/pain, (-) neuro deficits. PMD [facility] Past Medical History - Infectious Disease Hx of Infectious Diseases: None - Tetanus Immunization Tetanus Immunization: Unknown - Past Medical History Past Medical History: No Previous - Cardiac Hx Cardiac Disorders: Yes Hx Hypertension: Yes - Pulmonary Hx Respiratory Disorders: Yes Hx Bronchitis: Yes - Neurological Hx Neurological Disorder: Yes Hx Migraine: Yes Hx Seizures: Yes - HEENT Hx HEENT Disorder: Yes Hx Sinusitis: Yes - Renal Hx Renal Disorder: No - Endocrine/Metabolic Hx Endocrine Disorders: Yes Hx Systemic Lupus Erythematosus: Yes - Hematological/Oncological Hx Blood Disorders: No Hx AIDS: No - Integumentary Hx Dermatological Disorder: Yes Hx Psoriasis: Yes - Musculoskeletal/Rheumatological Hx Musculoskeletal Disorders: Yes Hx Arthritis: Yes - Gastrointestinal Hx Gastrointestinal Disorders: Yes Hx Gall Bladder Disease: Yes Hx Vomiting: Yes Other/Comment: LOWER GI BLEED - Genitourinary/Gynecological Hx Genitourinary Disorders: Yes Hx Urinary Tract Infection: Yes - Psychiatric Hx Psychophysiologic Disorder: Yes Hx Anxiety: Yes Hx Depression: Yes Hx Substance Use: No (denies) - Past Surgical History Past Surgical History: Non-Contributing - Surgical History Hx Cholecystectomy: Yes - Anesthesia Hx Anesthesia: Yes Hx Anesthesia Reactions: No Hx Malignant Hyperthermia: No - Suicidal Assessment Feels Threatened In Home Enviroment: No Family/Social History Family/Social History: Unknown Family HX Smoking Status: Never Smoked Hx Alcohol Use: No Hx Substance Use: No (denies) Hx Substance Use Treatment: No Allergies/Home Meds Allergies/Adverse Reactions: Allergies morphine Allergy (Verified 03/20/18 17:26) DIZZINESS quetiapine fumarate [From Seroquel] Allergy (Verified 03/20/18 17:26) RASH tramadol Allergy (Verified 03/20/18 17:26) RASH Home Medications: Home Meds Medication Instructions Recorded Confirmed Alprazolam [Xanax] 0.5 mg PO TID 09/11/17 03/20/18 Review of Systems - Review of Systems Constitutional: absent: Fatigue, Fevers ENT: absent: Sore Throat, Rhinorrhea, Sinus Congestion Respiratory: absent: SOB, Cough Cardiovascular: Chest Pain, Palpitations. absent: Edema Gastrointestinal: absent: Abdominal Pain, Nausea, Vomiting Musculoskeletal: absent: Arthralgias, Back Pain, Neck Pain Skin: absent: Rash, Pruritis, Skin Lesions Neurological: absent: Headache, Dizziness Physical Exam Vital Signs Temp Pulse Resp BP Pulse Ox 03/20/18 17:26 98.8 F 115 H 17 147/93 H 100 Temperature: Afebrile Blood Pressure: Normal Pulse: Tachycardic Respiratory Rate: Normal Appearance: Positive for: Well-Appearing, Non-Toxic, Comfortable Pain Distress: None Mental Status: Positive for: Alert and Oriented X 3 - Systems Exam Head: Present: Atraumatic, Normocephalic Pupils: Present: PERRL Extroacular Muscles: Present: EOMI Conjunctiva: Present: Normal Mouth: Present: Moist Mucous Membranes Neck: Present: Normal Range of Motion Respiratory/Chest: Present: Clear to Auscultation, Good Air Exchange. No: Respiratory Distress, Accessory Muscle Use Cardiovascular: Present: Normal S1, S2, Tachycardic (+regular rhythm). No: Murmurs Abdomen: No: Tenderness, Distention, Peritoneal Signs Back: Present: Normal Inspection Upper Extremity: Present: Normal Inspection. No: Cyanosis, Edema Lower Extremity: Present: Normal Inspection. No: Edema Neurological: Present: GCS=15, CN II-XII Intact, Speech Normal, Motor Func Grossly Intact, Normal Sensory Function Skin: Present: Warm, Dry, Normal Color. No: Rashes Psychiatric: Present: Alert, Oriented x 3, Normal Insight, Normal Concentration Medical Decision Making ED Course and Treatment: 03/20/18 18:46 Previous medical records reviewed, patient was seen at [facility] on 03/18 and was admitted, she then signed out AMA the next day. Previous EKGs reviewed. Plan: -- Labs -- IV -- potline monitor -- EKG -- CXR -- Reassess and disposition EKG : ST at 116 bpm, (-) acute ST changes, as read by PA. Previous EKGs reviewed which showed +sinus tachycardia. CXR : NAD, as read by DONNY. Labs reviewed : trop (-). On reevaluation, patient remains awake alert and oriented 3 in no acute distress. Diagnostic results d/w the patient. Patient feels comfortable going home, agrees with outpatient follow up. Advised to follow up with primary care physician in 1-2 days without fail. Return to the emergency room at any time for any new or worsening symptoms. Patient states she fully agrees with and understands discharge instructions. States that she agrees with the plan and disposition. Verbalized and repeated discharge instructions and plan. I have given the patient opportunity to ask any additional questions. - RAD Interpretation Radiology Orders: 03/20/18 18:32 CHEST PORTABLE [RAD] Stat - PA / FLEET ADMINISTRATOR / Resident Statement MD/DO has reviewed & agrees with the documentation as recorded. Disposition/Present on Arrival - Present on Arrival Any Indicators Present on Arrival: No History of DVT/PE: No History of Uncontrolled Diabetes: No Urinary Catheter: No History of Decub. Ulcer: No History Surgical Site Infection Following: None - Disposition Have Diagnosis and Disposition been Completed?: Yes Diagnosis: Chest pain, Palpitations Disposition: HOSPITALIZED Disposition Time: 21:45 Patient Plan: Other (patient wishes to leave AMA) Condition: STABLE Discharge Instructions (ExitCare): Palpitations (DC), Chest Pain (ED) Additional Instructions: You were evaluated for palpitations, chest pain. The emergency medical care you received today was directed at your acute symptoms. Return to the Emergency Department if your symptoms worsen, do not improve, if you change your mind, or if you have any other problems. Please contact your doctor in 2 days for re-evaluation and follow up. Bring any paperwork you were given at discharge with you along with any medications you are taking to your follow up visit. Our treatment cannot replace ongoing medical care by a primary care provider (PCP) outside of the emergency department. Thank you for allowing the [email or web address] team to be part of your care today. Forms: [employer] (Iraqi)
[2018-03-20 20:26] VITALS: RESP 18
[2018-03-20 20:38] LABS: BASO # 0.02 K/mm3 (0.0-2.0); BASO % 0.4 % (0.0-3.0); EOS % 0.4 % (1.5-5.0); GRAN # 3.35 (1.4-6.5); GRAN % 63.6 % (50.0-68.0); HEMOGLOBIN 15.3 g/dL (12.0-16.0); LYMPH # 1.6 (1.2-3.4); LYMPH % 30.8 % (22.0-35.0); MEAN CELL VOLUME 86.9 fl (80.0-105.0); MEAN CORPUSCULAR HEMOGLOBIN 29.4 pg (25.0-35.0); MEAN CORPUSCULAR HGB CONC 33.8 g/dl (31.0-37.0); MEAN PLATELET VOLUME 9.3 fl (7.0-11.0); MONO # 0.3 (0.1-0.6); MONO % 4.8 % (1.0-6.0); RBC 5.2 10^6/uL (3.5-6.1); RED CELL DISTRIBUTION WIDTH 14.7 % (11.5-14.5); WHITE BLOOD COUNT 5.3 10^3/uL (4.5-11.0)
[2018-03-20 20:45] LABS: INR 1.02; PROTHROMBIN TIME 11.6 SECONDS (9.4-12.5)
[2018-03-20 20:48] LABS: ALB/GLOB RATIO 1.2 (1.1-1.8); ALBUMIN 4.8 g/dL (3.0-4.8); ALT/SGPT 26 U/L (7-56); AST/SGOT 27 U/L (14-36); BLOOD UREA NITROGEN 11 mg/dL (7-21); CALCIUM 9.9 mg/dL (8.4-10.5); GFR NON-AFRICAN AMERICAN > 60
[2018-03-20 20:59] LABS: TROPONIN I < 0.01 ng/mL
[2018-03-20 23:55] VITALS: BP 123/74; PULSE 88
--- NOTE | 2018-03-21 08:52 | RAD ---
Date of service: 03/20/2018 HISTORY: CP COMPARISON: 07/16/2017 FINDINGS: LUNGS: No active pulmonary disease. PLEURA: No significant pleural effusion identified, no pneumothorax apparent. CARDIOVASCULAR: No aortic atherosclerotic calcification present. Normal cardiac size. No pulmonary vascular congestion. OSSEOUS STRUCTURES: No significant abnormalities. VISUALIZED UPPER ABDOMEN: Normal. OTHER FINDINGS: None. IMPRESSION: No active disease.
--- NOTE | 2018-03-21 09:35 | CARD ---
APPROVED REPORT Date of service: 03/20/2018 EKG Measurement Heart [id number] <Conclusion> Sinus tachycardia Otherwise normal ECG
== END 2018-03-20 22:45 | disposition home or self-care (01) ==
LOC: ED 17:17
DX: R07.9 Chest pain, unspecified (principal); R00.2 Palpitations; I10 Essential (primary) hypertension; G40.909 Epilepsy, unspecified, not intractable, without status epilepticus; F41.9 Anxiety disorder, unspecified; M19.90 Unspecified osteoarthritis, unspecified site

== ENCOUNTER 2018-03-22 15:19 | Observation (INO) | payer MEDICAID ==
[2018-03-22 15:22] VITALS: BMI 29.2
[2018-03-22] MEDS ORDERED: Sodium Chloride 0.9% 1,000 ML IV STA (15:39)
--- NOTE | 2018-03-22 15:42 | ED PDOC ---
Arrival/HPI - General Chief Complaint: Chest Pain Time Seen by Provider: 03/22/18 15:20 Historian: Patient, EMS - History of Present Illness Narrative History of Present Illness (Text): 03/22/18 15:40 A 57 year old female, whose past medical history includes anxiety, brought in by EMS and presents to the emergency department complaining of chest pain starting earlier today this morning. EMS was called by patient, and they administered 1 liquid Narcan and Aspirin 300 mg. 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 Of note, patient was seen at [facility] 2 dys ago for similar complaint, however had signed out against medical advice. Patient denies any SOB, cough, or any other complaints at this time. No PMD Past Medical History - Provider Review Nursing Documentation Reviewed: Yes - Infectious Disease Hx of Infectious Diseases: None - Tetanus Immunization Tetanus Immunization: Unknown - Reproductive Menopause: Yes - Past Medical History Past Medical History: No Previous - Cardiac Hx Cardiac Disorders: Yes Hx Hypertension: Yes - Pulmonary Hx Respiratory Disorders: Yes Hx Bronchitis: Yes - Neurological Hx Neurological Disorder: Yes Hx Migraine: Yes Hx Seizures: Yes - HEENT Hx HEENT Disorder: Yes - Renal Hx Renal Disorder: No - Endocrine/Metabolic Hx Endocrine Disorders: Yes Hx Systemic Lupus Erythematosus: Yes - Hematological/Oncological Hx Blood Disorders: No Hx AIDS: No - Integumentary Hx Dermatological Disorder: Yes Hx Psoriasis: Yes - Musculoskeletal/Rheumatological Hx Musculoskeletal Disorders: Yes Hx Arthritis: Yes - Gastrointestinal Hx Gastrointestinal Disorders: Yes Hx Gall Bladder Disease: Yes Hx Vomiting: Yes Other/Comment: LOWER GI BLEED - Genitourinary/Gynecological Hx Genitourinary Disorders: Yes Hx Urinary Tract Infection: Yes - Psychiatric Hx Psychophysiologic Disorder: Yes Hx Anxiety: Yes Hx Depression: Yes Hx Substance Use: No (denies) - Past Surgical History Past Surgical History: Non-Contributing - Surgical History Hx Cholecystectomy: Yes - Anesthesia Hx Anesthesia: Yes Hx Anesthesia Reactions: No Hx Malignant Hyperthermia: No - Suicidal Assessment Feels Threatened In Home Enviroment: No Family/Social History - Physician Review Nursing Documentation Reviewed: Yes Family/Social History: No Known Family HX Smoking Status: Never Smoked Hx Alcohol Use: No Hx Substance Use: No (denies) Hx Substance Use Treatment: No Allergies/Home Meds Allergies/Adverse Reactions: Allergies morphine Allergy (Verified 03/20/18 17:26) DIZZINESS quetiapine fumarate [From Seroquel] Allergy (Verified 03/20/18 17:26) RASH tramadol Allergy (Verified 03/20/18 17:26) RASH Home Medications: Home Meds Medication Instructions Recorded Confirmed Alprazolam [Xanax] 0.5 mg PO TID 09/11/17 03/22/18 Review of Systems - Physician Review All systems were reviewed & negative as marked: Yes - Review of Systems Respiratory: absent: SOB, Cough Cardiovascular: Chest Pain Psychiatric: Anxiety Physical Exam Vital Signs Reviewed: Yes Vital Signs Temp Pulse Resp BP Pulse Ox 03/22/18 15:19 98.2 F 136 H 20 142/99 H 99 Temperature: Afebrile Blood Pressure: Normal Pulse: Tachycardic Respiratory Rate: Normal Appearance: Positive for: Well-Appearing, Non-Toxic, Comfortable Pain Distress: None Mental Status: Positive for: Alert and Oriented X 3 - Systems Exam Head: Present: Atraumatic, Normocephalic Pupils: Present: PERRL Extroacular Muscles: Present: EOMI Conjunctiva: Present: Normal Mouth: Present: Moist Mucous Membranes Neck: Present: Normal Range of Motion Respiratory/Chest: Present: Clear to Auscultation (bilaterally), Good Air Exchange. No: Respiratory Distress, Accessory Muscle Use Cardiovascular: Present: Tachycardic Abdomen: No: Tenderness, Distention, Peritoneal Signs Back: Present: Normal Inspection Upper Extremity: Present: Normal Inspection. No: Cyanosis, Edema Lower Extremity: Present: Normal Inspection. No: Edema Neurological: Present: GCS=15, CN II-XII Intact, Speech Normal Skin: Present: Warm, Dry, Normal Color. No: Rashes Psychiatric: Present: Alert, Oriented x 3, Normal Insight, Normal Concentration Medical Decision Making ED Course and Treatment: 03/22/18 15:43 Impression: 57 year old female with chest pain. Differential Diagnosis included but are not limited to: ACS Anxiety Arrhythmia Plan: -- EKG -- Chest X-ray -- Labs -- Xanax -- IV Fluids -- Urinalysis -- Reassess and disposition Progress Notes: 03/22/18 16:32 Labs reviewed with troponin negative. Patient still persistently tachycardic to 110s. Discussed case with Dr. Singh(hospitalist) who accepts patient onto his service. - Lab Interpretations Lab Results: 03/22/18 15:30 03/22/18 15:30 Lab Results 03/22/18 15:30: pO2 191 H, VBG pH 7.47 H, VBG pCO2 24.0 L, VBG HCO3 17.5 L, VBG Total CO2 18.2 L, VBG O2 Sat (Calc) 99.2 H, VBG Base Excess -4.4 L, VBG Potassium 3.8, Sodium 139.0, Chloride 106.0, Glucose 100, Lactate 1.6, FiO2 21.0, Venous Blood Potassium 3.8 03/22/18 15:30: Sodium 140, Chloride 110 H, Potassium 4.0, Carbon Dioxide 18 L, Anion Gap 17, BUN 16, Creatinine 0.8, Est GFR ( Amer) > 60, Est GFR (Non- Af Amer) > 60, Random Glucose 108, Calcium 9.9, Magnesium 2.0, Total Bilirubin 0.5, AST 27, ALT 25, Alkaline Phosphatase 125, Troponin I < 0.01, NT-Pro-B Natriuret Pep 75.7, Total Protein 8.9 H, Albumin 4.7, Globulin 4.2, Albumin/Globulin Ratio 1.1 03/22/18 15:30: Urine Color Yellow, Urine Appearance Clear, Urine pH 6.5, Ur Specific [place] 1.025, Urine Protein 30 H, Urine Glucose (UA) Negative, Urine Ketones Negative, Urine Blood Small H, Urine Nitrate Negative, Urine Bilirubin Negative, Urine Urobilinogen 0.2, Ur Leukocyte Esterase Negative, Urine RBC Pending, Urine WBC Pending 03/22/18 15:30: PT 11.7, INR 1.03, APTT 29.2 03/22/18 15:30: WBC 7.9 D, RBC 5.29, Hgb 15.7, Hct 45.7, MCV 86.4, MCH 29.7, MCHC 34.4, RDW 14.7 H, Plt Count 444, MPV 9.9, Gran % 70.5 H, Lymph % (Auto) 24.3, [place] % (Auto) 4.2, Eos % (Auto) 0.9 L, Baso % (Auto) 0.1, Gran # 5.56, Lymph # (Auto) 1.9, [place] # (Auto) 0.3, Eos # (Auto) 0.1, Baso # (Auto) 0.01 I have reviewed the lab results: Yes - RAD Interpretation Radiology Orders: 03/22/18 15:35 CHEST PORTABLE [RAD] Stat - Scribe Statement The provider has reviewed the documentation as recorded by the Meng Prado Provider Scribe Attestation: All medical record entries made by the Scribe were at my direction and personally dictated by me. I have reviewed the chart and agree that the record accurately reflects my personal performance of the history, physical exam, medical decision making, and the department course for this patient. I have also personally directed, reviewed, and agree with the discharge instructions and disposition. Disposition/Present on Arrival - Present on Arrival Any Indicators Present on Arrival: No History of DVT/PE: No History of Uncontrolled Diabetes: No Urinary Catheter: No History of Decub. Ulcer: No History Surgical Site Infection Following: None - Disposition Have Diagnosis and Disposition been Completed?: Yes Diagnosis: Chest pain Disposition Time: 16:36 Patient Plan: Observation Condition: GUARDED Discharge Instructions (ExitCare): Chest Pain (ED)
[2018-03-22 15:55] LABS: VENOUS BLOOD GAS BASE EXCESS -4.4 mmol/L (0.0-2.0); VENOUS BLOOD GAS PO2 191 mm/Hg (30-55); VENOUS BLOOD PH 7.47 (7.32-7.43)
[2018-03-22 16:07] LABS: ALB/GLOB RATIO 1.1 (1.1-1.8); ALBUMIN 4.7 g/dL (3.0-4.8); ALT/SGPT 25 U/L (7-56); AST/SGOT 27 U/L (14-36); BLOOD UREA NITROGEN 16 mg/dL (7-21); CALCIUM 9.9 mg/dL (8.4-10.5); GFR NON-AFRICAN AMERICAN > 60
[2018-03-22 16:12] LABS: BASO # 0.01 K/mm3 (0.0-2.0); BASO % 0.1 % (0.0-3.0); EOS # 0.1 (0.0-0.7); EOS % 0.9 % (1.5-5.0); GRAN # 5.56 (1.4-6.5); GRAN % 70.5 % (50.0-68.0); HEMOGLOBIN 15.7 g/dL (12.0-16.0); LYMPH # 1.9 (1.2-3.4); LYMPH % 24.3 % (22.0-35.0); MEAN CELL VOLUME 86.4 fl (80.0-105.0); MEAN CORPUSCULAR HEMOGLOBIN 29.7 pg (25.0-35.0); MEAN CORPUSCULAR HGB CONC 34.4 g/dl (31.0-37.0); MEAN PLATELET VOLUME 9.9 fl (7.0-11.0); MONO # 0.3 (0.1-0.6); MONO % 4.2 % (1.0-6.0); RBC 5.29 10^6/uL (3.5-6.1); RED CELL DISTRIBUTION WIDTH 14.7 % (11.5-14.5); WHITE BLOOD COUNT 7.9 10^3/uL (4.5-11.0)
[2018-03-22 16:17] LABS: B-TYPE NATRIURETIC PEPTIDE 75.7 pg/mL (0-450); TROPONIN I < 0.01 ng/mL
[2018-03-22 16:24] LABS: INR 1.03; PARTIAL THROMBOPLASTIN TIME 29.2 Seconds (25.1-36.5); PROTHROMBIN TIME 11.7 SECONDS (9.4-12.5)
--- NOTE | 2018-03-22 16:35 | RAD ---
Date of service: 03/22/2018 HISTORY: Chest pain COMPARISON: 03/20/2018. FINDINGS: LUNGS: No active pulmonary disease. PLEURA: No significant pleural effusion identified, no pneumothorax apparent. CARDIOVASCULAR: No atherosclerotic calcification present Normal. OSSEOUS STRUCTURES: No significant abnormalities. VISUALIZED UPPER ABDOMEN: Normal. OTHER FINDINGS: None. IMPRESSION: No active disease. No significant interval change compared to the prior examination(s).
--- NOTE | 2018-03-22 18:39 | CP.PCM.HP ---
<Geeta Pacheco - Last Filed: 03/22/18 18:57> History of Present Illness - History of Present Illness History of Present Illness: Geeta Pacheco, PGY1 Hospital H&P This is a 57 year old female with PMH of opioid dependence, anxiety, seizure, depression and pelvic floor dysfunction presenting to the ER for 4 day history of CP. CP is located in the mid sternal region, characterized as tightness, radiating to the left arm, intermittent, rated 10/10 at worst, associated with SOB and denies any alleviating and exacerbating factors. She states she has had similar pain over the last couple of months. Of note, she was seen in the ED at [facility] and [facility] multiple times for similar symptoms over the last week and has left AMA a total of three times over the last week (2 at [facility] and 1 at [facility]). T sierra she states symptoms are getting worse. She states she does not currently take any medications. She admits to CP, SOB, and 4 episodes of watery green diarrhea yesterday. She denies fevers, chills, back pain, abdominal pain, constipation, numbness, tingling, swelling, recent sickness, sick contacts, travel, trauma and lifestyle changes including diet and weight. 12 point ROS noted here, otherwise unremarkable. PMD: Dr. 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, patient is taking acetominophen -codeine, alprazolam, zolpidem last refilled on 02/26/18) SH: denies drinking, smoking, and drug use Sx: denies any history of surgeries FH: denies All: denies allergies, per record is allergic morphine, quetipine, tramadol Present on Admission - Present on Admission Any Indicators Present on Admission: No Past Patient History - Infectious Disease Hx of Infectious Diseases: None - Tetanus Immunizations Tetanus Immunization: Unknown - Past Medical History & Family History Past Medical History?: Yes - Past Social History Smoking Status: Never Smoked - CARDIAC Hx Cardiac Disorders: Yes Hx Hypertension: Yes - PULMONARY Hx Respiratory Disorders: Yes Hx Bronchitis: Yes - NEUROLOGICAL Hx Neurological Disorder: Yes Hx Migraine: Yes Hx Seizures: Yes - HEENT Hx HEENT Problems: Yes - RENAL Hx Chronic Kidney Disease: No - ENDOCRINE/METABOLIC Hx Endocrine Disorders: Yes Hx Systemic Lupus Erythematosus: Yes - HEMATOLOGICAL/ONCOLOGICAL Hx Blood Disorders: No Hx AIDS: No - INTEGUMENTARY Hx Dermatological Problems: Yes Hx Psoriasis: Yes - MUSCULOSKELETAL/RHEUMATOLOGICAL Hx Musculoskeletal Disorders: Yes Hx Arthritis: Yes - GASTROINTESTINAL Hx Gastrointestinal Disorders: Yes Hx Gall Bladder Disease: Yes Hx Vomiting: Yes Other/Comment: LOWER GI BLEED - GENITOURINARY/GYNECOLOGICAL Hx Genitourinary Disorders: Yes Hx Urinary Tract Infection: Yes - PSYCHIATRIC Hx Psychophysiologic Disorder: Yes Hx Anxiety: Yes Hx Depression: Yes Hx Substance Use: No (denies) - SURGICAL HISTORY Hx Cholecystectomy: Yes - ANESTHESIA Hx Anesthesia: Yes Hx Anesthesia Reactions: No Hx Malignant Hyperthermia: No Meds Allergies/Adverse Reactions: Allergies Allergy/AdvReac Type Severity Reaction Status Date / Time morphine Allergy DIZZINESS Verified 03/20/18 17:26 quetiapine fumarate Allergy RASH Verified 03/20/18 17:26 [From Seroquel] tramadol Allergy RASH Verified 03/20/18 17:26 Physical Exam - Constitutional Appears: No Acute Distress - Head Exam Head Exam: ATRAUMATIC, NORMAL INSPECTION - Eye Exam Eye Exam: EOMI Pupil Exam: PERRL - ENT Exam ENT Exam: Mucous Membranes Moist - Respiratory Exam Respiratory Exam: Clear to Auscultation Bilateral, NORMAL BREATHING PATTERN. absent: Accessory Muscle Use, Wheezes, Respiratory Distress - Cardiovascular Exam Cardiovascular Exam: Tachycardia, +S1, +S2 Additional comments: no anterior or lateral chest wall tenderness - GI/Abdominal Exam GI & Abdominal Exam: Normal Bowel Sounds, Soft. absent: Firm, Guarding, Tenderness - Extremities Exam Extremities exam: Positive for: normal inspection, pedal pulses present. Negative for: calf tenderness, tenderness - Neurological Exam Neurological exam: Alert, Oriented x3 - Skin Skin Exam: Normal Color, Warm Results - Vital Signs Recent Vital Signs: Last Vital Signs Temp 98.9 F 03/22/18 17:30 Pulse 98 H 03/22/18 18:01 Resp 18 03/22/18 17:30 BP 133/87 03/22/18 17:30 Pulse Ox 98 03/22/18 17:30 - Labs Result Diagrams: 03/22/18 15:30 03/22/18 15:30 Labs: Laboratory Results - last 24 hr 03/22/18 03/22/18 03/22/18 15:30 15:30 15:30 WBC 7.9 D RBC 5.29 Hgb 15.7 Hct 45.7 MCV 86.4 MCH 29.7 MCHC 34.4 RDW 14.7 H Plt Count 444 MPV 9.9 Gran % 70.5 H Lymph % (Auto) 24.3 [place] % (Auto) 4.2 Eos % (Auto) 0.9 L Baso % (Auto) 0.1 Gran # 5.56 Lymph # (Auto) 1.9 [place] # (Auto) 0.3 Eos # (Auto) 0.1 Baso # (Auto) 0.01 PT 11.7 INR 1.03 APTT 29.2 pO2 VBG pH VBG pCO2 VBG HCO3 VBG Total CO2 VBG O2 Sat (Calc) VBG Base Excess VBG Potassium Sodium Chloride Glucose Lactate FiO2 Potassium Carbon Dioxide Anion Gap BUN Creatinine Est GFR ( Amer) Est GFR (Non-Af Amer) Random Glucose Calcium Magnesium Total Bilirubin AST ALT Alkaline Phosphatase Troponin I NT-Pro-B Natriuret Pep Total Protein Albumin Globulin Albumin/Globulin Ratio Venous Blood Potassium Urine Color Cancelled Urine Appearance Cancelled Urine pH Cancelled Ur Specific [place] Cancelled Urine Protein Cancelled Urine Glucose (UA) Cancelled Urine Ketones Cancelled Urine Blood Cancelled Urine Nitrate Cancelled Urine Bilirubin Cancelled Urine Urobilinogen Cancelled Ur Leukocyte Esterase Cancelled Urine RBC Cancelled Urine WBC Cancelled Ur Epithelial Cells Cancelled Calcium Oxalate Crystal Cancelled Uric Acid Crystals Cancelled Triple Phos Crystals Cancelled Other Crystals Cancelled Amorphous Sediment Cancelled Urine Bacteria Cancelled Hyaline Casts Cancelled Fine Granular Casts Cancelled Coarse Granular Casts Cancelled Waxy Casts Cancelled RBC Casts Cancelled WBC Casts Cancelled Urine Other Cancelled Alcohol, Quantitative 03/22/18 03/22/18 03/22/18 15:30 15:30 15:30 WBC RBC Hgb Hct MCV MCH MCHC RDW Plt Count MPV Gran % Lymph % (Auto) [place] % (Auto) Eos % (Auto) Baso % (Auto) Gran # Lymph # (Auto) [place] # (Auto) Eos # (Auto) Baso # (Auto) PT INR APTT pO2 191 H VBG pH 7.47 H VBG pCO2 24.0 L VBG HCO3 17.5 L VBG Total CO2 18.2 L VBG O2 Sat (Calc) 99.2 H VBG Base Excess -4.4 L VBG Potassium 3.8 Sodium 140 139.0 Chloride 110 H 106.0 Glucose 100 Lactate 1.6 FiO2 21.0 Potassium 4.0 Carbon Dioxide 18 L Anion Gap 17 BUN 16 Creatinine 0.8 Est GFR ( Amer) > 60 Est GFR (Non-Af Amer) > 60 Random Glucose 108 Calcium 9.9 Magnesium 2.0 Total Bilirubin 0.5 AST 27 ALT 25 Alkaline Phosphatase 125 Troponin I < 0.01 NT-Pro-B Natriuret Pep 75.7 Total Protein 8.9 H Albumin 4.7 Globulin 4.2 Albumin/Globulin Ratio 1.1 Venous Blood Potassium 3.8 Urine Color Urine Appearance Urine pH Ur Specific [place] Urine Protein Urine Glucose (UA) Urine Ketones Urine Blood Urine Nitrate Urine Bilirubin Urine Urobilinogen Ur Leukocyte Esterase Urine RBC Urine WBC Ur Epithelial Cells Calcium Oxalate Crystal Uric Acid Crystals Triple Phos Crystals Other Crystals Amorphous Sediment Urine Bacteria Hyaline Casts Fine Granular Casts Coarse Granular Casts Waxy Casts RBC Casts WBC Casts Urine Other Alcohol, Quantitative < 10 Assessment & Plan - Assessment and Plan (Free Text) Assessment: This is a 57 year old female with PMH of opioid dependence, anxiety, seizure, depression and pelvic floor dysfunction presenting to the ER for 4 day history of CP. Plan: Chest pain -troponin <0.01 -initial EKG shows ST of 131, no ST changes -trending trops, EKG in AM -echo pending -A1c, TSH, lipid panel pending -cardiology on consult, Dr. Barajas Diarrhea -c diff, stool culture, stool leukocytes, ova and parasites pending -procalc pending Hx of opioid dependence -denies any current medications -per [place] [employer] SERVICES MANAGER AWARE online records show patient on 02/26/2018 refilled 90 day supply of acetominophen-codeine, 30 day supply of 0.5mg alprazolam TID, and 30 day supply of zolpidem 10mg -UDS, alcohol pending -xanax TID prn 0.5mg PPX/Diet -lovenox and pepcid -HHD Patient seen and case discussed with attending, Dr. Keller <Mikaela Keller - Last Filed: 03/23/18 17:22> Results - Vital Signs Recent Vital Signs: Last Vital Signs Temp 98.4 F 03/23/18 06:00 Pulse 98 H 12/26/18 12:00 Resp 20 03/23/18 12:00 BP 148/76 03/23/18 12:00 Pulse Ox 99 03/23/18 06:00 - Labs Result Diagrams: 03/23/18 06:30 03/23/18 05:00 Labs: Laboratory Results - last 24 hr 03/22/18 03/22/18 03/22/18 15:30 15:30 18:10 WBC RBC Hgb Hct MCV MCH MCHC RDW Plt Count MPV Gran % Lymph % (Auto) [place] % (Auto) Eos % (Auto) Baso % (Auto) Gran # Lymph # (Auto) [place] # (Auto) Eos # (Auto) Baso # (Auto) Sodium Potassium Chloride Carbon Dioxide Anion Gap BUN Creatinine Est GFR ( Amer) Est GFR (Non-Af Amer) Random Glucose Hemoglobin A1c Calcium Phosphorus Magnesium Total Bilirubin AST ALT Alkaline Phosphatase Troponin I < 0.01 Total Protein Albumin Globulin Albumin/Globulin Ratio Triglycerides Cholesterol LDL Cholesterol Direct HDL Cholesterol Procalcitonin TSH 3rd Generation Prolactin Urine Color Cancelled Urine Appearance Cancelled Urine pH Cancelled Ur Specific [place] Cancelled Urine Protein Cancelled Urine Glucose (UA) Cancelled Urine Ketones Cancelled Urine Blood Cancelled Urine Nitrate Cancelled Urine Bilirubin Cancelled Urine Urobilinogen Cancelled Ur Leukocyte Esterase Cancelled Urine RBC Cancelled Urine WBC Cancelled Ur Epithelial Cells Cancelled Calcium Oxalate Crystal Cancelled Uric Acid Crystals Cancelled Triple Phos Crystals Cancelled Other Crystals Cancelled Amorphous Sediment Cancelled Urine Bacteria Cancelled Hyaline Casts Cancelled Fine Granular Casts Cancelled Coarse Granular Casts Cancelled Waxy Casts Cancelled RBC Casts Cancelled WBC Casts Cancelled Urine Other Cancelled Phenytoin Alcohol, Quantitative < 10 03/22/18 03/23/18 03/23/18 22:46 01:50 05:00 WBC RBC Hgb Hct MCV MCH MCHC RDW Plt Count MPV Gran % Lymph % (Auto) [place] % (Auto) Eos % (Auto) Baso % (Auto) Gran # Lymph # (Auto) [place] # (Auto) Eos # (Auto) Baso # (Auto) Sodium 138 Potassium 3.7 Chloride 108 H Carbon Dioxide 21 Anion Gap 13 BUN 13 Creatinine 0.6 L Est GFR ( Amer) > 60 Est GFR (Non-Af Amer) > 60 Random Glucose 93 Hemoglobin A1c Calcium 9.1 Phosphorus 3.0 Magnesium 1.8 Total Bilirubin 0.7 AST 23 ALT 25 Alkaline Phosphatase 95 Troponin I < 0.01 Total Protein 7.4 Albumin 3.9 Globulin 3.4 Albumin/Globulin Ratio 1.2 Triglycerides 66 Cholesterol 147 LDL Cholesterol Direct 90 HDL Cholesterol 47 Procalcitonin TSH 3rd Generation Prolactin 12.9 Urine Color Urine Appearance Urine pH Ur Specific [place] Urine Protein Urine Glucose (UA) Urine Ketones Urine Blood Urine Nitrate Urine Bilirubin Urine Urobilinogen Ur Leukocyte Esterase Urine RBC Urine WBC Ur Epithelial Cells Calcium Oxalate Crystal Uric Acid Crystals Triple Phos Crystals Other Crystals Amorphous Sediment Urine Bacteria Hyaline Casts Fine Granular Casts Coarse Granular Casts Waxy Casts RBC Casts WBC Casts Urine Other Phenytoin Alcohol, Quantitative 03/23/18 03/23/18 03/23/18 05:00 06:30 06:30 WBC 5.6 D RBC 4.68 Hgb 13.5 D Hct 40.5 MCV 86.5 MCH 28.8 MCHC 33.3 RDW 14.7 H Plt Count 364 MPV 9.3 Gran % 61.8 Lymph % (Auto) 30.9 [place] % (Auto) 6.4 H Eos % (Auto) 0.7 L Baso % (Auto) 0.2 Gran # 3.45 Lymph # (Auto) 1.7 [place] # (Auto) 0.4 Eos # (Auto) 0.0 Baso # (Auto) 0.01 Sodium Potassium Chloride Carbon Dioxide Anion Gap BUN Creatinine Est GFR ( Amer) Est GFR (Non-Af Amer) Random Glucose Hemoglobin A1c 4.8 Calcium Phosphorus Magnesium Total Bilirubin AST ALT Alkaline Phosphatase Troponin I Total Protein Albumin Globulin Albumin/Globulin Ratio Triglycerides Cholesterol LDL Cholesterol Direct HDL Cholesterol Procalcitonin TSH 3rd Generation 1.53 Prolactin Urine Color Urine Appearance Urine pH Ur Specific [place] Urine Protein Urine Glucose (UA) Urine Ketones Urine Blood Urine Nitrate Urine Bilirubin Urine Urobilinogen Ur Leukocyte Esterase Urine RBC Urine WBC Ur Epithelial Cells Calcium Oxalate Crystal Uric Acid Crystals Triple Phos Crystals Other Crystals Amorphous Sediment Urine Bacteria Hyaline Casts Fine Granular Casts Coarse Granular Casts Waxy Casts RBC Casts WBC Casts Urine Other Phenytoin Alcohol, Quantitative 03/23/18 03/23/18 06:30 11:14 WBC RBC Hgb Hct MCV MCH MCHC RDW Plt Count MPV Gran % Lymph % (Auto) [place] % (Auto) Eos % (Auto) Baso % (Auto) Gran # Lymph # (Auto) [place] # (Auto) Eos # (Auto) Baso # (Auto) Sodium Potassium Chloride Carbon Dioxide Anion Gap BUN Creatinine Est GFR ( Amer) Est GFR (Non-Af Amer) Random Glucose Hemoglobin A1c Calcium Phosphorus Magnesium Total Bilirubin AST ALT Alkaline Phosphatase Troponin I Total Protein Albumin Globulin Albumin/Globulin Ratio Triglycerides Cholesterol LDL Cholesterol Direct HDL Cholesterol Procalcitonin < 0.05 L TSH 3rd Generation Prolactin Urine Color Urine Appearance Urine pH Ur Specific [place] Urine Protein Urine Glucose (UA) Urine Ketones Urine Blood Urine Nitrate Urine Bilirubin Urine Urobilinogen Ur Leukocyte Esterase Urine RBC Urine WBC Ur Epithelial Cells Calcium Oxalate Crystal Uric Acid Crystals Triple Phos Crystals Other Crystals Amorphous Sediment Urine Bacteria Hyaline Casts Fine Granular Casts Coarse Granular Casts Waxy Casts RBC Casts WBC Casts Urine Other Phenytoin < 3 L Alcohol, Quantitative Attending/Attestation - Attestation I have personally seen and examined this patient.: Yes I have fully participated in the care of the patient.: Yes I have reviewed all pertinent clinical information: Yes Notes (Text): 03/23/18 17:04 Attending note; Patient seen and examined with resident in ER. Patient is alert and awake. Complaining of left-sided chest pain. Denies any nausea, vomiting. Denies any palpitations. Denies any fevers, chills. Denies any urinary, bowel complaints. Patient is a 57 year old female with PMH of opioid dependence, anxiety, benzodiazepine dependency, seizure, depression is admitted for left-sided chest pain. EKG showed sinus tachycardia and nonspecific ST-T changes. 1. Chest pain; rule out acute coronary syndrome. Cardiac enzymes 3 ordered. Chest x-rays negative. First troponin is negative. Cardiology evaluation requested. Echocardiogram ordered. 2. Tachycardia; resolved. possibly drug withdrawal. Patient has been taking benzodiazepine and opiates chronically. Noncompliance with follow-up. Urine drug screen ordered. 3. Anxiety depression; continue Xanax. 4. Chronic back pain; continue Tylenol. Out of bed to chair as tolerated. 5. Migraine; continue motrin prn. 6. seizure disorder; we will review home meds. Patient was noncompliant with meds at home. Patient has been to different hospitals for xanax and percocet prescriptions. recently signed AMA from [facility] ([facility]3]. Prescription monitoring program reviewed. Patient takes Ambien, Xanax and Tylenol with codeine for a long period of time. Upon discharge the patient will follow-up with PMD Dr. Welch.
[2018-03-22] MEDS ORDERED: Sodium Chloride 0.9% 1,000 ML IV SCH (19:45)
--- NOTE | 2018-03-22 22:51 | PCM.RRT ---
<Philip Guajardo - Last Filed: 03/22/18 23:15> FRAME CHANGER Nurse Assessment - Situation Date: 03/22/18 Time FRAME CHANGER was called: 22:12 FRAME CHANGER Responder Arrival Time: 22:14 FRAME CHANGER Location:: [address] [place] [address] Room Number: [id number] FRAME CHANGER Reason for Call: Tachycardia FRAME CHANGER Called By: RN - IV IV Inserted during FRAME CHANGER?: No - Respiratory Oxygen Delivery Method: Room Air Was the Patient Intubated?: No Was the Patient Placed on a Ventilator?: No - Medication Medications Administered During FRAME CHANGER: ativan 2 mg ivp - Diagnostic Test Ordered EKG: No Chest X-Ray: No CT Scan: Yes Other Diagnostic Test Ordered: head ct - Stat Labs Ordered FRAME CHANGER Other Labs Ordered: prolactin CPR started during FRAME CHANGER?: No - Vital Signs Vital Sign: Rapid Response Vital Sign Blood Pressure 145/98 Pulse Rate 108 Respiratory Rate 18 Temperature 98.8 F Oxygen Saturation 100 - Finger Stick Blood Glucose Finger Stick Blood Glucose: 95 - Heather Coma Scale Coma Scale Motor: Movement to pain stimulus Coma Scale Verbal: No response - Time FRAME CHANGER Ended Time FRAME CHANGER Ended: 22:27 - Vital Signs at end of FRAME CHANGER Vital Signs at end of FRAME CHANGER: Rapid Response End Vital Sign Blood Pressure 137/84 Pulse Rate 105 Respiratory Rate 18 Temperature 98.0 F O2 Sat by Pulse Oximetry 99 - Recommendations Notifications: Attending Physician - Neurological Status (Select all that apply): Confused, Lethargic - Respiratory Oxygen Delivery Method: Room Air - Constitutional Appears: No Acute Distress - Head Head Exam: ATRAUMATIC, NORMAL INSPECTION, NORMOCEPHALIC - Eyes Eye Exam: Normal appearance, PERRL - Respiratory Exam Respiratory Exam: NORMAL BREATHING PATTERN. absent: Rhonchi, Wheezes - Cardiovascular Exam Cardiovascular Exam: +S1, +S2. absent: Gallop, RRR - GI/Abdominal Exam GI & Abdominal Exam: Soft, Normal Bowel Sounds - Neurological Exam Neurological Exam: Awake - Extremities Exam Extremities Exam: Full ROM, Normal Capillary Refill Plan - Assessment of Findings&Treatment Plan 57 year old female with PMH of opioid dependence, anxiety, seizure, depression FRAME CHANGER was called after witnessed fall as patient was going to the bathroom. As per nurse, she did not have a head trauma. Patient was found on the floor, returned to bed. She was non verbal but responds to verbal stimuli by opening both eyes. She had stable vitals BP 145/90, afebrile with BG 95. Patient started to seize in all extremities that stopped after few seconds. -Ativan 2 mg given, procal ordered, -seizure, fall precautions -CT head w/o contrast ordered -CTA chest for tachycardia -keep NPO -neuro consulted Dr Julien Staples, DO, PGY1 <Sumi Beebe - Last Filed: 03/23/18 01:06> FRAME CHANGER Nurse Assessment - Vital Signs Vital Sign: Rapid Response Vital Sign Blood Pressure 145/98 Pulse Rate 108 Respiratory Rate 18 Temperature 98.8 F Oxygen Saturation 100 - Vital Signs at end of FRAME CHANGER Vital Signs at end of FRAME CHANGER: Rapid Response End Vital Sign Blood Pressure 137/84 Pulse Rate 105 Respiratory Rate 18 Temperature 98.0 F O2 Sat by Pulse Oximetry 99 Attending/Attestation - Attestation I have personally seen and examined this patient.: Yes I have fully participated in the care of the patient.: Yes I have reviewed all pertinent clinical information, including history, physical exam and plan: Yes Notes (Text): 03/23/18 00:41 Pt was seen with the residents by the bedside. Discussed case in detail. While pt was being assessed,she had a generalized seizure activity that lasted a minute or so.Subsequently she was lethargic,but easily arousable..(Was in post ictal state). Appropriate blood work,including prolactin level and Cat Scan of head was ordered stat. Also,since pt has been tachycardic and has chest pain since she came in,will get CT angio of chest after Cat scan of head is done and is reported negative.
--- NOTE | 2018-03-23 00:29 | PCM.RRT ---
<Baudilio Staples - Last Filed: 03/23/18 00:44> FIRE TRUCK DRIVER Nurse Assessment - Situation Date: 03/22/18 Time FIRE TRUCK DRIVER was called: 22:12 FIRE TRUCK DRIVER Responder Arrival Time: 22:14 FIRE TRUCK DRIVER Location:: [address] [place] [address] Room Number: [id number] FIRE TRUCK DRIVER Reason for Call: Tachycardia FIRE TRUCK DRIVER Called By: RN - IV IV Inserted during FIRE TRUCK DRIVER?: No - Respiratory Oxygen Delivery Method: Room Air Was the Patient Intubated?: No Was the Patient Placed on a Ventilator?: No - Medication Medications Administered During FIRE TRUCK DRIVER: ativan 2 mg ivp - Diagnostic Test Ordered EKG: No Chest X-Ray: No CT Scan: Yes Other Diagnostic Test Ordered: head ct - Stat Labs Ordered FIRE TRUCK DRIVER Other Labs Ordered: prolactin CPR started during FIRE TRUCK DRIVER?: No - Vital Signs Vital Sign: Rapid Response Vital Sign Blood Pressure 145/98 Pulse Rate 108 Respiratory Rate 18 Temperature 98.8 F Oxygen Saturation 100 - Finger Stick Blood Glucose Finger Stick Blood Glucose: 95 - Heather Coma Scale Coma Scale Eye Opening: To verbal stimuli Coma Scale Motor: Movement to pain stimulus Coma Scale Verbal: No response - Time FIRE TRUCK DRIVER Ended Time FIRE TRUCK DRIVER Ended: 22:27 - Vital Signs at end of FIRE TRUCK DRIVER Vital Signs at end of FIRE TRUCK DRIVER: Rapid Response End Vital Sign Blood Pressure 137/84 Pulse Rate 105 Respiratory Rate 18 Temperature 98.0 F O2 Sat by Pulse Oximetry 99 - Recommendations Notifications: Attending Physician - Neurological Status (Select all that apply): Confused, Lethargic Other (Please specify): non verbal. arousable - Respiratory Oxygen Delivery Method: Room Air - Constitutional Appears: Confused - Head Head Exam: ATRAUMATIC, NORMAL INSPECTION, NORMOCEPHALIC - Eyes Eye Exam: Normal appearance, PERRL - Respiratory Exam Respiratory Exam: Clear to Ausculation Bilateral, NORMAL BREATHING PATTERN. absent: Rales, Rhonchi, Wheezes - Cardiovascular Exam Cardiovascular Exam: Tachycardia, +S1, +S2. absent: Gallop, RRR - GI/Abdominal Exam GI & Abdominal Exam: Soft, Normal Bowel Sounds. absent: Tenderness, Mass, Organomegaly - Neurological Exam Neurological Exam: Altered Additional exam: non verbal, arousable - Extremities Exam Extremities Exam: Full ROM, Normal Capillary Refill, Normal Inspection Plan - Assessment of Findings&Treatment Plan 57 year old female with PMH of opioid dependence, anxiety, seizure, depression. FIRE TRUCK DRIVER was called after witnessed fall as patient was going to the bathroom. As per nurse, she did not have a head trauma. Patient was found on the floor, returned to bed. She was non verbal but responds to verbal stimuli by opening both eyes. She had stable vitals BP 145/90, afebrile with BG 95. Patient started to seize in all extremities that stopped after few seconds. When performing drop arm test, she did not hit her face. She was blinking when trying to suddenly approaching her face. -Possibly pseudo-seizure episode -Ativan 2 mg stat given -Ativan 1mg q6h prn ordered -prolactin stat ordered -seizure, fall precautions -CT head w/o contrast ordered -EKG: NSR with sinus tachy -CTA chest for tachycardia (r/o PE) - after getting CT head result -urine drug screen ordered -keep NPO -neuro check -neuro consulted Dr Victoria Case reviewed with attending Dr Concepción Staples DO, PGY1 <Sumi Beebe - Last Filed: 03/23/18 01:12> FIRE TRUCK DRIVER Nurse Assessment - Vital Signs Vital Sign: Rapid Response Vital Sign Blood Pressure 145/98 Pulse Rate 108 Respiratory Rate 18 Temperature 98.8 F Oxygen Saturation 100 - Vital Signs at end of FIRE TRUCK DRIVER Vital Signs at end of FIRE TRUCK DRIVER: Rapid Response End Vital Sign Blood Pressure 137/84 Pulse Rate 105 Respiratory Rate 18 Temperature 98.0 F O2 Sat by Pulse Oximetry 99 Attending/Attestation - Attestation I have personally seen and examined this patient.: Yes I have fully participated in the care of the patient.: Yes I have reviewed all pertinent clinical information, including history, physical exam and plan: Yes Notes (Text): 03/23/18 01:08 Pt was seen with the residents by the bedside. Case discussed in detail. Agree with documentation,assessment and orders placed.
[2018-03-23] MEDS ORDERED: Iodixanol 320 MG/ML 100 ML BOTTLE IV ONE (04:05)
[2018-03-23 07:11] LABS: BASO # 0.01 K/mm3 (0.0-2.0); BASO % 0.2 % (0.0-3.0); EOS % 0.7 % (1.5-5.0); GRAN # 3.45 (1.4-6.5); GRAN % 61.8 % (50.0-68.0); LYMPH # 1.7 (1.2-3.4); LYMPH % 30.9 % (22.0-35.0); MEAN CELL VOLUME 86.5 fl (80.0-105.0); MEAN CORPUSCULAR HEMOGLOBIN 28.8 pg (25.0-35.0); MEAN CORPUSCULAR HGB CONC 33.3 g/dl (31.0-37.0); MEAN PLATELET VOLUME 9.3 fl (7.0-11.0); MONO # 0.4 (0.1-0.6); MONO % 6.4 % (1.0-6.0); RBC 4.68 10^6/uL (3.5-6.1); RED CELL DISTRIBUTION WIDTH 14.7 % (11.5-14.5); WHITE BLOOD COUNT 5.6 10^3/uL (4.5-11.0)
[2018-03-23 07:14] LABS: HEMOGLOBIN 13.5 g/dL (12.0-16.0)
[2018-03-23 07:44] LABS: LDL CHOLESTEROL 90 mg/dL (0-129)
[2018-03-23 07:56] LABS: ALB/GLOB RATIO 1.2 (1.1-1.8); ALBUMIN 3.9 g/dL (3.0-4.8); ALT/SGPT 25 U/L (7-56); AST/SGOT 23 U/L (14-36); BLOOD UREA NITROGEN 13 mg/dL (7-21); CALCIUM 9.1 mg/dL (8.4-10.5); GFR NON-AFRICAN AMERICAN > 60; HDL CHOLESTEROL 47 mg/dL (29-60)
--- NOTE | 2018-03-23 09:39 | CT ---
Date of service: 03/23/2018 PROCEDURE: CT HEAD WITHOUT CONTRAST. HISTORY: fall COMPARISON: None available. TECHNIQUE: Axial computed tomography images were obtained through the head/brain without intravenous contrast. Radiation dose: Total exam DLP = 793.0 mGy-cm. This CT exam was performed using one or more of the following dose reduction techniques: Automated exposure control, adjustment of the mA and/or kV according to patient size, and/or use of iterative reconstruction technique. FINDINGS: HEMORRHAGE: No intracranial hemorrhage. BRAIN: No mass effect or edema. No atrophy or chronic microvascular ischemic changes. VENTRICLES: Unremarkable. No hydrocephalus. CALVARIUM: Unremarkable. PARANASAL SINUSES: Unremarkable as visualized. No significant inflammatory changes. MASTOID AIR CELLS: Unremarkable as visualized. No inflammatory changes. OTHER FINDINGS: None. IMPRESSION: Normal CT of the Head.
--- NOTE | 2018-03-23 09:42 | CT ---
Date of service: 03/23/2018 PROCEDURE: CT Chest with contrast (Pulmonary Angiogram) HISTORY: tachycardia COMPARISON: None available. TECHNIQUE: Axial computed tomography images were obtained of the chest in the pulmonary arterial phase of enhancement. Coronal and sagittal reformatted images were created and reviewed. Intravenous contrast dose: Visipaque 320, 100 cc Radiation dose: Total exam DLP = 429.93 mGy-cm. This CT exam was performed using one or more of the following dose reduction techniques: Automated exposure control, adjustment of the mA and/or kV according to patient size, and/or use of iterative reconstruction technique. FINDINGS: PULMONARY ARTERIES: Somewhat suboptimal pulmonary arterial opacification but there is no definite pulmonary embolism identified. AORTA: No acute findings. No thoracic aortic aneurysm. No aortic atherosclerotic calcification or mural plaque present. LUNGS: Trace emphysematous changes are reiterated at the left upper lobe near the apex. No acute infiltrate identified bilaterally. Limited nonspecific ground-glass changes are identified the inferior bilateral lower lobes with linear atelectasis or fibrosis again seen the left lower lobe base. Stable trace biapical fibrosis noted. Limited bilateral basilar subsegmental atelectasis identified. PLEURAL SPACES: Unremarkable. No effusion or pneumothorax. HEART: Unremarkable. No cardiomegaly. No significant pericardial effusion. LYMPH NODES: No lymphadenopathy. BONES, CHEST WALL: Unremarkable. No fracture or destructive lesion OTHER FINDINGS: Unremarkable. IMPRESSION: Somewhat suboptimal pulmonary artery opacification however there is no definitive evidence to suggest pulmonary embolus at this time. Nonspecific limited bilateral basilar ground-glass opacity with left lower lobe linear atelectasis or fibrosis again evident. Bilateral basilar subsegmental atelectasis identified as well. Concordant preliminary report from [facility], 03/23/2018 5:34 a.m..
[2018-03-23] MEDS: Enoxaparin 40 mg Syringe SC SCH (10:29)
--- NOTE | 2018-03-23 11:13 | CP.PCM.CON ---
<Ben Wilkins - Last Filed: 03/23/18 15:49> History of Present Illness - History of Present Illness History of Present Illness: Neurology consult for Dr. Julien Wilkins PGY2 Patient is a 57 F with a past medical history of migraine, SLE, epilepsy, arthritis, anxiety, depression, and opioid dependence who has been [place] [facility] [place]. Rapid was called overnight on patient due to patient sizing sp falling. As per nursing staff overnight patient was seen in the bathroom standing, when staff went to bring patient to bed patient slowly brought herself to the ground. When patient was brought to the bed as per nurse, patient began shaking her entire body. When patient was told to relax and calm down, shaking stopped. Neurology was consulted due to patient's history of epilepsy as well as seizure like activity that was witnessed. PMD: Dr. Welch PMH: opioid dependence, anxiety, seizure, depression and pelvic floor dysfunction Meds: denies taking any current meds (per [place] [employer] Aware, patient is taking acetominophen -codeine, alprazolam, zolpidem last refilled on 02/26/18) SH: denies drinking, smoking, and drug use Sx: denies any history of surgeries FH: denies All: denies allergies, per record is allergic morphine, quetipine, tramadol, depakote Review of Systems - Constitutional Constitutional: absent: Chills - EENT Eyes: absent: Change in Vision - Cardiovascular Cardiovascular: absent: Chest Pain, Dyspnea - Gastrointestinal Gastrointestinal: absent: Abdominal Pain, Nausea - Musculoskeletal Musculoskeletal: Back Pain - Neurological Neurological: absent: Dizziness, Numbness, Tingling - Psychiatric Psychiatric: Anxiety Past Patient History - Infectious Disease Hx of Infectious Diseases: None - Tetanus Immunizations Tetanus Immunization: Unknown - Past Medical History & Family History Past Medical History?: Yes - Past Social History Smoking Status: Never Smoked - CARDIAC Hx Cardiac Disorders: Yes Hx Hypertension: Yes - PULMONARY Hx Respiratory Disorders: Yes Hx Bronchitis: Yes - NEUROLOGICAL Hx Neurological Disorder: Yes Hx Migraine: Yes Hx Seizures: Yes - HEENT Hx HEENT Problems: Yes - RENAL Hx Chronic Kidney Disease: No - ENDOCRINE/METABOLIC Hx Endocrine Disorders: Yes Hx Systemic Lupus Erythematosus: Yes - HEMATOLOGICAL/ONCOLOGICAL Hx Blood Disorders: No Hx AIDS: No - INTEGUMENTARY Hx Dermatological Problems: Yes Hx Psoriasis: Yes - MUSCULOSKELETAL/RHEUMATOLOGICAL Hx Musculoskeletal Disorders: Yes Hx Arthritis: Yes - GASTROINTESTINAL Hx Gastrointestinal Disorders: Yes Hx Gall Bladder Disease: Yes Hx Vomiting: Yes Other/Comment: LOWER GI BLEED - GENITOURINARY/GYNECOLOGICAL Hx Genitourinary Disorders: Yes Hx Urinary Tract Infection: Yes - PSYCHIATRIC Hx Psychophysiologic Disorder: Yes Hx Anxiety: Yes Hx Depression: Yes Hx Substance Use: No (denies) - SURGICAL HISTORY Hx Cholecystectomy: Yes - ANESTHESIA Hx Anesthesia: Yes Hx Anesthesia Reactions: No Hx Malignant Hyperthermia: No Meds Allergies/Adverse Reactions: Allergies Allergy/AdvReac Type Severity Reaction Status Date / Time morphine Allergy DIZZINESS Verified 03/20/18 17:26 quetiapine fumarate Allergy RASH Verified 03/20/18 17:26 [From Seroquel] tramadol Allergy RASH Verified 03/20/18 17:26 - Medications Medications: Current Medications Amitriptyline HCl (Elavil) 50 mg PO DAILY [facility] Last Admin: 03/23/18 10:35 Dose: 50 mg Aspirin (Aspirin Chewable) 81 mg PO DAILY [facility] Last Admin: 03/23/18 10:29 Dose: 81 mg Enoxaparin Sodium (Lovenox) 40 mg SC DAILY [facility]; Protocol Last Admin: 03/23/18 10:29 Dose: 40 mg Famotidine (Pepcid) 20 mg IVP DAILY [facility] Last Admin: 03/23/18 10:29 Dose: 20 mg Sodium Chloride (Sodium Chloride 0.9%) 1,000 mls @ 100 mls/hr IV .Q10H [facility] Last Admin: 03/22/18 20:53 Dose: 100 mls/hr Loratadine (Claritin) 10 mg PO DAILY [facility] Last Admin: 03/23/18 10:35 Dose: 10 mg Lorazepam (Ativan) 1 mg IVP Q6H PRN; Protocol PRN Reason: Anxiety Sumatriptan Succinate (Imitrex Tab) 100 mg PO BID [facility] Last Admin: 03/23/18 10:36 Dose: 100 mg Physical Exam - Constitutional Appears: Non-toxic, No Acute Distress - Head Exam Head Exam: ATRAUMATIC, NORMAL INSPECTION, NORMOCEPHALIC - Eye Exam Eye Exam: EOMI - Neck Exam Neck exam: Positive for: Normal Inspection - Respiratory Exam Respiratory Exam: Clear to Auscultation Bilateral, NORMAL BREATHING PATTERN - Cardiovascular Exam Cardiovascular Exam: REGULAR RHYTHM, +S1, +S2 - GI/Abdominal Exam GI & Abdominal Exam: Normal Bowel Sounds, Soft - Extremities Exam Extremities exam: Positive for: normal inspection - Back Exam Back exam: NORMAL INSPECTION Results - Vital Signs Recent Vital Signs: Last Vital Signs Temp 98.4 F 03/23/18 06:00 Pulse 96 H 03/23/18 06:00 Resp 20 03/23/18 06:00 BP 121/77 03/23/18 06:00 Pulse Ox 99 03/23/18 06:00 - Labs Result Diagrams: 03/23/18 06:30 03/23/18 05:00 Labs: Laboratory Results - last 24 hr 03/22/18 03/22/18 03/22/18 15:30 15:30 15:30 WBC 7.9 D RBC 5.29 Hgb 15.7 Hct 45.7 MCV 86.4 MCH 29.7 MCHC 34.4 RDW 14.7 H Plt Count 444 MPV 9.9 Gran % 70.5 H Lymph % (Auto) 24.3 [place] % (Auto) 4.2 Eos % (Auto) 0.9 L Baso % (Auto) 0.1 Gran # 5.56 Lymph # (Auto) 1.9 [place] # (Auto) 0.3 Eos # (Auto) 0.1 Baso # (Auto) 0.01 PT 11.7 INR 1.03 APTT 29.2 pO2 VBG pH VBG pCO2 VBG HCO3 VBG Total CO2 VBG O2 Sat (Calc) VBG Base Excess VBG Potassium Sodium Chloride Glucose Lactate FiO2 Potassium Carbon Dioxide Anion Gap BUN Creatinine Est GFR ( Amer) Est GFR (Non-Af Amer) Random Glucose Calcium Phosphorus Magnesium Total Bilirubin AST ALT Alkaline Phosphatase Troponin I NT-Pro-B Natriuret Pep Total Protein Albumin Globulin Albumin/Globulin Ratio Triglycerides Cholesterol LDL Cholesterol Direct HDL Cholesterol TSH 3rd Generation Venous Blood Potassium Urine Color Cancelled Urine Appearance Cancelled Urine pH Cancelled Ur Specific Hooker Cancelled Urine Protein Cancelled Urine Glucose (UA) Cancelled Urine Ketones Cancelled Urine Blood Cancelled Urine Nitrate Cancelled Urine Bilirubin Cancelled Urine Urobilinogen Cancelled Ur Leukocyte Esterase Cancelled Urine RBC Cancelled Urine WBC Cancelled Ur Epithelial Cells Cancelled Calcium Oxalate Crystal Cancelled Uric Acid Crystals Cancelled Triple Phos Crystals Cancelled Other Crystals Cancelled Amorphous Sediment Cancelled Urine Bacteria Cancelled Hyaline Casts Cancelled Fine Granular Casts Cancelled Coarse Granular Casts Cancelled Waxy Casts Cancelled RBC Casts Cancelled WBC Casts Cancelled Urine Other Cancelled Alcohol, Quantitative 03/22/18 03/22/18 03/22/18 15:30 15:30 15:30 WBC RBC Hgb Hct MCV MCH MCHC RDW Plt Count MPV Gran % Lymph % (Auto) [place] % (Auto) Eos % (Auto) Baso % (Auto) Gran # Lymph # (Auto) [place] # (Auto) Eos # (Auto) Baso # (Auto) PT INR APTT pO2 191 H VBG pH 7.47 H VBG pCO2 24.0 L VBG HCO3 17.5 L VBG Total CO2 18.2 L VBG O2 Sat (Calc) 99.2 H VBG Base Excess -4.4 L VBG Potassium 3.8 Sodium 140 139.0 Chloride 110 H 106.0 Glucose 100 Lactate 1.6 FiO2 21.0 Potassium 4.0 Carbon Dioxide 18 L Anion Gap 17 BUN 16 Creatinine 0.8 Est GFR ( Amer) > 60 Est GFR (Non-Af Amer) > 60 Random Glucose 108 Calcium 9.9 Phosphorus Magnesium 2.0 Total Bilirubin 0.5 AST 27 ALT 25 Alkaline Phosphatase 125 Troponin I < 0.01 NT-Pro-B Natriuret Pep 75.7 Total Protein 8.9 H Albumin 4.7 Globulin 4.2 Albumin/Globulin Ratio 1.1 Triglycerides Cholesterol LDL Cholesterol Direct HDL Cholesterol TSH 3rd Generation Venous Blood Potassium 3.8 Urine Color Urine Appearance Urine pH Ur Specific [place] Urine Protein Urine Glucose (UA) Urine Ketones Urine Blood Urine Nitrate Urine Bilirubin Urine Urobilinogen Ur Leukocyte Esterase Urine RBC Urine WBC Ur Epithelial Cells Calcium Oxalate Crystal Uric Acid Crystals Triple Phos Crystals Other Crystals Amorphous Sediment Urine Bacteria Hyaline Casts Fine Granular Casts Coarse Granular Casts Waxy Casts RBC Casts WBC Casts Urine Other Alcohol, Quantitative < 10 03/22/18 03/23/18 03/23/18 18:10 01:50 05:00 WBC RBC Hgb Hct MCV MCH MCHC RDW Plt Count MPV Gran % Lymph % (Auto) [place] % (Auto) Eos % (Auto) Baso % (Auto) Gran # Lymph # (Auto) [place] # (Auto) Eos # (Auto) Baso # (Auto) PT INR APTT pO2 VBG pH VBG pCO2 VBG HCO3 VBG Total CO2 VBG O2 Sat (Calc) VBG Base Excess VBG Potassium Sodium 138 Chloride 108 H Glucose Lactate FiO2 Potassium 3.7 Carbon Dioxide 21 Anion Gap 13 BUN 13 Creatinine 0.6 L Est GFR ( Amer) > 60 Est GFR (Non-Af Amer) > 60 Random Glucose 93 Calcium 9.1 Phosphorus 3.0 Magnesium 1.8 Total Bilirubin 0.7 AST 23 ALT 25 Alkaline Phosphatase 95 Troponin I < 0.01 < 0.01 NT-Pro-B Natriuret Pep Total Protein 7.4 Albumin 3.9 Globulin 3.4 Albumin/Globulin Ratio 1.2 Triglycerides 66 Cholesterol 147 LDL Cholesterol Direct 90 HDL Cholesterol 47 TSH 3rd Generation Venous Blood Potassium Urine Color Urine Appearance Urine pH Ur Specific [place] Urine Protein Urine Glucose (UA) Urine Ketones Urine Blood Urine Nitrate Urine Bilirubin Urine Urobilinogen Ur Leukocyte Esterase Urine RBC Urine WBC Ur Epithelial Cells Calcium Oxalate Crystal Uric Acid Crystals Triple Phos Crystals Other Crystals Amorphous Sediment Urine Bacteria Hyaline Casts Fine Granular Casts Coarse Granular Casts Waxy Casts RBC Casts WBC Casts Urine Other Alcohol, Quantitative 03/23/18 03/23/18 06:30 06:30 WBC 5.6 D RBC 4.68 Hgb 13.5 D Hct 40.5 MCV 86.5 MCH 28.8 MCHC 33.3 RDW 14.7 H Plt Count 364 MPV 9.3 Gran % 61.8 Lymph % (Auto) 30.9 [place] % (Auto) 6.4 H Eos % (Auto) 0.7 L Baso % (Auto) 0.2 Gran # 3.45 Lymph # (Auto) 1.7 [place] # (Auto) 0.4 Eos # (Auto) 0.0 Baso # (Auto) 0.01 PT INR APTT pO2 VBG pH VBG pCO2 VBG HCO3 VBG Total CO2 VBG O2 Sat (Calc) VBG Base Excess VBG Potassium Sodium Chloride Glucose Lactate FiO2 Potassium Carbon Dioxide Anion Gap BUN Creatinine Est GFR ( Amer) Est GFR (Non-Af Amer) Random Glucose Calcium Phosphorus Magnesium Total Bilirubin AST ALT Alkaline Phosphatase Troponin I NT-Pro-B Natriuret Pep Total Protein Albumin Globulin Albumin/Globulin Ratio Triglycerides Cholesterol LDL Cholesterol Direct HDL Cholesterol TSH 3rd Generation 1.53 Venous Blood Potassium Urine Color Urine Appearance Urine pH Ur Specific [place] Urine Protein Urine Glucose (UA) Urine Ketones Urine Blood Urine Nitrate Urine Bilirubin Urine Urobilinogen Ur Leukocyte Esterase Urine RBC Urine WBC Ur Epithelial Cells Calcium Oxalate Crystal Uric Acid Crystals Triple Phos Crystals Other Crystals Amorphous Sediment Urine Bacteria Hyaline Casts Fine Granular Casts Coarse Granular Casts Waxy Casts RBC Casts WBC Casts Urine Other Alcohol, Quantitative Assessment & Plan - Assessment and Plan (Free Text) Assessment: Patient is a 57 F with a past medical history of migraine, SLE, epilepsy, arthritis, anxiety, depression, and opioid dependence who has been admitted to [facility] [place] pain found to have demosntrate seizure like activity s/p fall -D/C dilantin -Dilantin level -EEG ordered -Will start patient on tegretol <Ana Iyer - Last Filed: 03/27/18 13:45> Results - Vital Signs Recent Vital Signs: Last Vital Signs Temp 98.5 F 03/24/18 12:00 Pulse 98 H 03/24/18 12:00 Resp 18 03/24/18 12:00 BP 121/73 03/24/18 12:00 Pulse Ox 99 03/24/18 06:48 - Labs Result Diagrams: 03/24/18 06:30 03/24/18 06:50 Assessment & Plan - Assessment and Plan (Free Text) Assessment: I examined the patient independently and agree with the assessment and plan. Dr. iyer
[2018-03-23] MEDS ORDERED: Potassium Chloride 20 mEq ER Tab PO ONE (13:16)
[2018-03-23] MEDS: Phenytoin 100 mg/4 ml Oral Susp UD PO SCH ×2 (13:31→21:11)
--- NOTE | 2018-03-23 14:53 | CP.PCM.PN ---
<Solo Franco - Last Filed: 03/23/18 14:47> Subjective - Date & Time of Evaluation Date of Evaluation: 03/23/18 Time of Evaluation: 07:20 - Subjective Subjective: Medicine Progress Note for Hospitalist Service, Dr. Arianna Franco, DO PGY-1 Pt seen and examined at bedside. States she does not feel good. Unable to localize her pain currently. Per RN pt c/o chest pain overnight, but then fell asleep without taking any pain medications. S/p NYLON MACHINE OPERATOR called last night for "seizure". When I asked pt if she has had any history of seizures she admitted, but states that she was given Dilantin by her PCP and did not follow-up with Neurology after her last discharge. Denies shortness of breath, fever, chills, n/v/d/c, abd pain, urinary complaints, tremors, headache, dizziness, or other symptoms. Objective - Vital Signs/Intake and Output Vital Signs (last 24 hours): Temp Pulse Resp BP Pulse Ox 98.4 F 98 H 20 148/76 99 03/23/18 06:00 03/23/18 12:00 03/23/18 12:00 03/23/18 12:00 03/23/18 06:00 Intake and Output: 03/23/18 03/23/18 06:59 18:59 Intake Total 1080 Output Total 500 Balance 580 - Medications Medications: Current Medications Alprazolam (Xanax) 0.5 mg PO TID PRN; Protocol PRN Reason: Anxiety Amitriptyline HCl (Elavil) 50 mg PO HS [facility] Aspirin (Aspirin Chewable) 81 mg PO DAILY [facility] Last Admin: 03/23/18 10:29 Dose: 81 mg Carbamazepine (Tegretol) 100 mg PO BID [facility]; Protocol Enoxaparin Sodium (Lovenox) 40 mg SC DAILY [facility]; Protocol Last Admin: 03/23/18 10:29 Dose: 40 mg Famotidine (Pepcid) 20 mg IVP DAILY [facility] Last Admin: 03/23/18 10:29 Dose: 20 mg Ibuprofen (Motrin Tab) 400 mg PO Q6H PRN PRN Reason: Pain, moderate (4-7) Last Admin: 03/23/18 13:30 Dose: 400 mg Loratadine (Claritin) 10 mg PO DAILY [facility] Last Admin: 03/23/18 10:35 Dose: 10 mg Lorazepam (Ativan) 1 mg IVP Q6H PRN; Protocol PRN Reason: Anxiety Phenytoin (Dilantin) 100 mg PO Q8 [facility] Last Admin: 03/23/18 13:31 Dose: 100 mg Sumatriptan Succinate (Imitrex Tab) 100 mg PO BID [facility] Last Admin: 03/23/18 10:36 Dose: 100 mg Zolpidem Tartrate (Ambien) 5 mg PO HS PRN; Protocol PRN Reason: Insomnia - Labs Labs: 03/23/18 06:30 03/23/18 05:00 PT 11.7 SECONDS (9.4-12.5) 03/22/18 15:30 INR 1.03 03/22/18 15:30 APTT 29.2 Seconds (25.1-36.5) 03/22/18 15:30 - Constitutional Appears: Non-toxic, No Acute Distress - Head Exam Head Exam: ATRAUMATIC, NORMOCEPHALIC - Eye Exam Eye Exam: EOMI, Normal appearance, PERRL - ENT Exam ENT Exam: Mucous Membranes Moist - Respiratory Exam Respiratory Exam: Clear to Ausculation Bilateral, NORMAL BREATHING PATTERN. absent: Rales, Rhonchi, Wheezes - Cardiovascular Exam Cardiovascular Exam: REGULAR RHYTHM, +S1, +S2. absent: Gallop, Rubs, Murmur - GI/Abdominal Exam GI & Abdominal Exam: Soft, Normal Bowel Sounds. absent: Distended, Guarding, Tenderness, Organomegaly - Extremities Exam Extremities Exam: Full ROM, Normal Capillary Refill, Normal Inspection. absent: Pedal Edema, Tenderness - Back Exam Back Exam: Full ROM, NORMAL INSPECTION. absent: paraspinal tenderness - Neurological Exam Neurological Exam: Alert, Awake, CN II-XII Intact, Oriented x3 - Psychiatric Exam Psychiatric exam: Flat Affect - Skin Skin Exam: Dry, Intact, Normal Color, Warm Assessment and Plan - Assessment and Plan (Free Text) Assessment: This is a 57 year old female with PMH of opioid dependence, anxiety, seizure, depression and pelvic floor dysfunction who presented with 4 days hx of chest pain. Plan: Chest pain -Troponins neg x3; chest pain reproducible on exam today -Initial EKG shows sinus tachycardia 131 bpm, no ST changes -Echo done, will f/u results -A1c 4.8, TSH 1.53, lipid panel wnl -Cardiology consulted (Dr. Barajas), recs appreciated, pt to go for stress test tomorrow Diarrhea -C diff, stool culture, stool leukocytes, ova and parasites pending -Procal wnl -Pt denies any further episodes this am -Afebrile, vitals stable Hx seizures -Pt restarted on home meds Amitryptyline, Dilantin, Sumatriptan -Neuro consulted, recs appreciated, added Tegretol -Pt s/p NYLON MACHINE OPERATOR on 03/22 for "seizure", per staff pt purposefully threw herself down on ground and started shaking her upper exts b/l Hx of opioid dependence -Denies any current medications -Per [place] [employer] online records show patient on 02/26/2018 refilled 90 day supply of acetominophen-codeine, 30 day supply of 0.5mg alprazolam TID, and 30 day supply of zolpidem 10mg -Alcohol level neg, UDS pending -Upon discussion with pt at bedside today, she receives Tylenol #[address] Welch every month and states she does not take them, states she "flushes them down the toilet" -Pt demonstrating flat affect on exam -Psych consulted, recs appreciated PPX/Diet -Lovenox and pepcid -HHD Pt seen, examined with, and plan discussed with Dr. Keller, attending physician. Sloo Franco DO PGY-1, [employer] Filter Operator Pager #[phone] <Mikaela Keller - Last Filed: 03/26/18 14:35> Objective - Vital Signs/Intake and Output Vital Signs (last 24 hours): Temp Pulse Resp BP Pulse Ox 98.5 F 98 H 18 121/73 99 03/24/18 12:00 03/24/18 12:00 03/24/18 12:00 03/24/18 12:00 03/24/18 06:48 - Labs Labs: 03/24/18 06:30 03/24/18 06:50 PT 11.7 SECONDS (9.4-12.5) 03/22/18 15:30 INR 1.03 03/22/18 15:30 APTT 29.2 Seconds (25.1-36.5) 03/22/18 15:30 Attending/Attestation - Attestation I have personally seen and examined this patient.: Yes I have fully participated in the care of the patient.: Yes I have reviewed all pertinent clinical information, including history, physical exam and plan: Yes Notes (Text): 03/26/18 14:33 Attending note; Patient seen and examined with resident . Patient is alert and awake. flat affect. History is unreliable. Requesting pain medication. Complaining of left-sided chest pain. Denies any nausea, vomiting. Denies any palpitations. Denies any fevers, chills. Denies any urinary, bowel complaints. had rapid response yesterday for seizure like activity. no tongue bite, urinary incontinenceor injury noted Patient is a 57 year old female with PMH of opioid dependence, anxiety, b enzodiazepine dependency, seizure, depression is admitted for left-sided chest pain. EKG showed sinus tachycardia and nonspecific ST-T changes. 1. Chest pain; rule out acute coronary syndrome. Cardiac enzymes 3 negative. Chest x-rays negative. Cardiology evaluation appreciated . Stress test for tomorrow . Echocardiogram pending . 2. Tachycardia; resolved. possibly drug withdrawal. Patient has been taking benzodiazepine and opiates chronically. Noncompliance with follow-up. Urine drug screen ordered. 3. Anxiety depression; continue Xanax. psychiatric evaluation requested . 4. Chronic back pain; continue Tylenol. Out of bed to chair as tolerated. 5. Migraine; continue motrin prn. 6. seizure disorder; continue dilatin. Continue IV Ativan when necessary .neurology evaluation requested . CT head is negative . ] Patient was noncompliant with meds at home. Patient has been to different hospitals for xanax and percocet prescriptions. recently signed AMA from [facility]. Prescription monitoring program reviewed. Patient takes Ambien, Xanax and Tylenol with codeine for a long period of time. Upon discharge the patient will follow-up with PMD Dr. Welch.
--- NOTE | 2018-03-23 15:25 | CARD ---
APPROVED REPORT Date of service: 03/23/2018 EXAM: Two-dimensional and M-mode echocardiogram with Doppler and color Doppler. INDICATION Chest Pain 2D DIMENSIONS Left Atrium (2D)3.0 (1.6-4.0cm)IVSd1.1 (0.7-1.1cm) LVDd3.9 (3.9-5.9cm)PWd1.1 (0.7-1.1cm) LVDs2.8 (2.5-4.0cm)FS (%) 27.1 % LVEF (%)53.5 (>50%) M-Mode DIMENSIONS Aortic Root2.50 (2.2-3.7cm)Aortic Cusp Exc.2.00 (1.5-2.0cm) Aortic Valve AoV Peak Ligyfmda902.0cm/Petr Peak GR.16mmHg Mitral Valve MV E Lqfofpxw71.7cm/sMV A Lydfchby99.6cm/sE/A ratio0.8 TDI E/Lateral E'0.0E/Medial E'0.0 Tricuspid Valve TR Peak [id number]/sRAP [id number] Peak Gr.8mmHg [id number] LEFT VENTRICLE The left ventricle is normal size. There is normal left ventricular wall thickness. The left ventricular function is normal. The left ventricular ejection fraction is within the normal range. There is normal LV segmental wall motion. Transmitral Doppler flow pattern is Grade I-abnormal relaxation pattern. RIGHT VENTRICLE The right ventricle is normal size. There is normal right ventricular wall thickness. The right ventricular systolic function is normal. ATRIA The left atrium size is normal. The right atrium size is normal. AORTIC VALVE The aortic valve is mildly thickened. No aortic regurgitation is present. There is no aortic valvular stenosis. MITRAL VALVE The mitral valve is normal in structure. There is no mitral valve regurgitation noted. There is no mitral valve stenosis. TRICUSPID VALVE The tricuspid valve is normal in structure. There is no tricuspid valve regurgitation noted. PULMONIC VALVE The pulmonary valve is normal in structure. There is no pulmonic valvular regurgitation. GREAT VESSELS The aortic root is normal in size. The IVC is normal in size and collapses >50% with inspiration. <Conclusion> The left ventricle is normal size. There is normal left ventricular wall thickness. The left ventricular function is normal. The left ventricular ejection fraction is within the normal range. There is normal LV segmental wall motion. Transmitral Doppler flow pattern is Grade I-abnormal relaxation pattern.
[2018-03-23 17:53] LABS: BARBITURATES, UR NEGATIVE (NEGATIVE); BENZODIAZEPINES, UR POSITIVE (NEGATIVE); OPIATES, UR NEGATIVE (NEGATIVE); PHENCYCLIDINE, UR NEGATIVE (NEGATIVE)
--- NOTE | 2018-03-23 21:00 | CON ---
DATE: 03/23/2018 REASON FOR CONSULTATION: Followup chest pain, cardiac evaluation. BRIEF CLINICAL HISTORY: This is a 57-year-old female with past medical history significant for seizure disorder, anxiety disorder, depression, some pelvic floor dysfunction, opioid dependence, came in with complaint of chest pain, it is very tender, any cough. Denies any chest pain, dyspnea on exertion, but feels the pain is dull there. The patient was scheduled for a stress test today, but the patient had last night late seizure, so it was held. Denies any chest pain now, but sometimes she gets chest pain on taking a deep breath and coughing. PAST MEDICAL HISTORY: Significant for anxiety disorder; seizure disorder, last seizure yesterday; history of pelvic floor dysfunction; and opioid dependence. CURRENT MEDICATIONS: The patient is taking codeine, Xanax, and Ambien. SOCIAL HISTORY: Denies any history of alcohol abuse. Denies any history of tobacco abuse. PAST SURGICAL HISTORY: Denies any past surgical history. FAMILY HISTORY: Nothing significant. ALLERGIES: REPORTED MORPHINE FUMARATE, TRAMADOL. REVIEW OF SYSTEMS: As per HPI. PREVIOUS CARDIAC WORKUP: As follows. The patient did not have any documented workup here in the hospital and though only EKG was reported a couple of times, which shows normal sinus, acute ST-T wave changes noted in the previous EKG. PHYSICAL EXAMINATION: VITAL SIGNS: As follows; height of the patient 5 feet 2 inches, weight of the patient 167 pounds, and body mass index 30 kg/m2. Rest of the examination, temperature afebrile, heart rate 98, and blood pressure 148/76. HEENT: PERRLA. Extraocular muscles intact. NECK: Supple. No carotid bruit or thyromegaly. CHEST: Clear to auscultation. HEART: S1 and S2 regular. ABDOMEN: Soft. EXTREMITIES: Clubbing and cyanosis negative. LABORATORY DATA: Blood work; WBC 5.6, hemoglobin 13.1, hematocrit 40.5, and platelet count 364. Chemistry shows sodium 138, potassium 3.7, chloride 108, carbon dioxide 21, anion gap of 13, BUN 13, and creatinine 0.6. Troponin is 0.01. EKG shows normal sinus. No acute ST-T wave changes noted. EKG shows sinus bradycardia, right axis deviation, and nonspecific ST-T wave changes. The patient had CT chest was done on admission to rule out PE. No definite evidence of PE noted. Last night, the patient around 9:30 had seizure disorder and a CAT scan of the head was done, though patient had a history of seizure disorder in the past. Normal head CT. IMPRESSION: A 57-year-old female with past medical history significant for seizure disorder, depression, anxiety disorder, opioid dependence admitted with chest pain, atypical tenderness to the muscle, history of seizure disorder last night had a seizure. The patient was scheduled for stress test, but the patient's stress test is on hold. RECOMMENDATIONS: We will get echo to assess LV function today. Resume diet. Hold stress test today, we will schedule tomorrow. Monitor electrolytes, lipid profile, TSH, and hemoglobin A1c. We will supplement potassium because today's potassium is 3.7. We will follow CPK troponin. The patient did not have any evidence of [place] and ruled out for myocardial infarction given multiple risk factors, we will do stress test today. Also the chest pain is atypical, but given the multiple risk factor, we will schedule for a stress test tomorrow. The patient was already scheduled, but canceled and scheduled tomorrow because of recent seizure disorder. Further recommendations depending upon hospital course. We will follow you. Thank you Dr. Woodall for providing us the opportunity in taking care of the patient, Gladys Franz. Eloy Barajas MD
--- NOTE | 2018-03-23 23:38 | CON ---
DATE: 03/23/2018 HISTORY OF PRESENT ILLNESS: Shortly, the patient is a 57-year-old female with multiple medical issues and possible anxiety disorder. The patient was brought in for evaluation of chest pain. Psych consult was called because the patient presented to be depressed and anxious. The patient was seen and examined. This conventional underwriter is not familiar with this patient from the previous admissions. The patient does not have history of being admitted to [facility] and this conventional underwriter had never been involved in the patient care in the past. The patient presented to be withdrawn, flat affect, poor personal hygiene. The patient reported that she does not feel depressed. The patient denied feeling anxious. The patient reported that she had never been admitted to the psychiatric inpatient unit and never seen psychiatrist in the past. The patient reported that the only complaint what she has is insomnia. The patient reported that she fills her medication at [facility], which was contacted and medication list was obtained. Based on report, the patient was seen by Dr. Welch and the patient has a history of being prescribed amitriptyline 50 mg daily, zolpidem 10 mg daily, alprazolam 0.5 mg three times a day, acetaminophen and codeine as well as sumatriptan. The patient most recently filled that medication at the beginning of February. The patient seems to be compliant with the medications. PHYSICAL EXAMINATION: VITAL SIGNS: Stable. Temperature 98.4, pulse is 98, blood pressure 148/76, respiration 26 and saturation is 99. MEDICATIONS: The psychotropic medications resumed including Elavil 50 mg at the nighttime as well as Xanax as well as Ambien. LABORATORY DATA: Labs reviewed. Urinalysis reviewed. MENTAL STATUS EXAMINATION: The patient presented to be alert, somewhat disengaged and depressed, flat affect. Mood described as "I am not depressed and I am not anxious." Affect was constricted. Thought process was concrete. Thought content, the patient denied visual, auditory, or tactile hallucinations. Denied paranoid ideations. The patient denied thoughts of harming herself or others. Denied intent or plan. Insight and judgment seems to be fair. Impulses are well controlled. IMPRESSION: Rule out mood disorder and anxiety disorder due to general medical condition. PLAN: Medications were confirmed by [facility] and resumed. This conventional underwriter will follow up on this patient. The patient denies that she feels depressed or anxious. The patient reports that she lives in [place] with two autistic kids and her . Ambien will be resumed at 10 mg at the nighttime and was confirmed by the patient's pharmacy. Also, Elavil will be resumed as well as Xanax. We will follow up and advise accordingly. Thank you very much for letting me participate in the care of your patient. Kelley Meade MD
--- NOTE | 2018-03-24 00:04 | CARD ---
APPROVED REPORT Date of service: 03/22/2018 EKG Measurement Heart [id number] <Conclusion> Sinus tachycardia Otherwise normal ECG
--- NOTE | 2018-03-24 00:39 | CARD ---
APPROVED REPORT Date of service: 03/23/2018 EKG Measurement Heart [id number] [place] [id number] <Conclusion> Sinus tachycardia Otherwise normal ECG
--- NOTE | 2018-03-24 00:52 | CARD ---
APPROVED REPORT Date of service: 03/22/2018 EKG Measurement Heart [id number] <Conclusion> Sinus tachycardia Right atrial enlargement Nonspecific ST abnormality Abnormal ECG
[2018-03-24 06:48] VITALS: RESP 18
[2018-03-24 06:49] VITALS: O2SAT 99
[2018-03-24] MEDS: Phenytoin 100 mg/4 ml Oral Susp UD PO SCH (07:08)
[2018-03-24 07:24] LABS: BASO # 0.02 K/mm3 (0.0-2.0); BASO % 0.4 % (0.0-3.0); EOS # 0.1 (0.0-0.7); EOS % 1.4 % (1.5-5.0); GRAN # 3.39 (1.4-6.5); GRAN % 60.6 % (50.0-68.0); HEMOGLOBIN 15.2 g/dL (12.0-16.0); LYMPH # 1.7 (1.2-3.4); LYMPH % 30.4 % (22.0-35.0); MEAN CELL VOLUME 87.4 fl (80.0-105.0); MEAN CORPUSCULAR HEMOGLOBIN 29.4 pg (25.0-35.0); MEAN CORPUSCULAR HGB CONC 33.6 g/dl (31.0-37.0); MEAN PLATELET VOLUME 10.5 fl (7.0-11.0); MONO # 0.4 (0.1-0.6); MONO % 7.2 % (1.0-6.0); RBC 5.17 10^6/uL (3.5-6.1); RED CELL DISTRIBUTION WIDTH 14.3 % (11.5-14.5); WHITE BLOOD COUNT 5.6 10^3/uL (4.5-11.0)
--- NOTE | 2018-03-24 07:33 | CP.PCM.PN ---
Subjective - Date & Time of Evaluation Date of Evaluation: 03/24/18 Time of Evaluation: 06:35 - Subjective Subjective: Awake, alert, no distress Reason for consultation and follow up: Cardiac evaluation of chest pain, history of seizure disorder,anxiety, opioid dependence, depression Seen and examined by me and Dr. Barajas Objective - Vital Signs/Intake and Output Vital Signs (last 24 hours): Temp Pulse Resp BP Pulse Ox 98.1 F 70 18 118/83 99 03/24/18 06:48 03/24/18 06:48 03/24/18 06:48 03/24/18 06:48 03/24/18 06:48 - Medications Medications: Current Medications Alprazolam (Xanax) 0.5 mg PO TID PRN; Protocol PRN Reason: Anxiety Last Admin: 03/23/18 20:43 Dose: 0.5 mg Amitriptyline HCl (Elavil) 50 mg PO HS [facility] Last Admin: 03/23/18 21:11 Dose: 50 mg Aspirin (Aspirin Chewable) 81 mg PO DAILY [facility] Last Admin: 03/23/18 10:29 Dose: 81 mg Carbamazepine (Tegretol) 100 mg PO BID [facility]; Protocol Last Admin: 03/23/18 17:44 Dose: 100 mg Enoxaparin Sodium (Lovenox) 40 mg SC DAILY [facility]; Protocol Last Admin: 03/23/18 10:29 Dose: 40 mg Famotidine (Pepcid) 20 mg PO DAILY [facility] Ibuprofen (Motrin Tab) 400 mg PO Q6H PRN PRN Reason: Pain, moderate (4-7) Last Admin: 03/23/18 18:56 Dose: 400 mg Loratadine (Claritin) 10 mg PO DAILY [facility] Last Admin: 03/23/18 10:35 Dose: 10 mg Lorazepam (Ativan) 1 mg IVP Q6H PRN; Protocol PRN Reason: Anxiety Last Admin: 03/23/18 22:08 Dose: 1 mg Phenytoin (Dilantin) 100 mg PO Q8 [facility] Last Admin: 03/24/18 07:08 Dose: Not Given Sumatriptan Succinate (Imitrex Tab) 100 mg PO BID [facility] Last Admin: 03/23/18 18:49 Dose: 100 mg Zolpidem Tartrate (Ambien) 5 mg PO HS PRN; Protocol PRN Reason: Insomnia - Labs Labs: 03/24/18 06:30 03/23/18 05:00 PT 11.7 SECONDS (9.4-12.5) 03/22/18 15:30 INR 1.03 03/22/18 15:30 APTT 29.2 Seconds (25.1-36.5) 03/22/18 15:30 - Constitutional Appears: Non-toxic, No Acute Distress - Head Exam Head Exam: NORMAL INSPECTION, NORMOCEPHALIC - Eye Exam Eye Exam: Normal appearance Pupil Exam: NORMAL ACCOMODATION - ENT Exam ENT Exam: Mucous Membranes Moist, Normal Exam - Respiratory Exam Respiratory Exam: Decreased Breath Sounds, Clear to Ausculation Bilateral, NORMAL BREATHING PATTERN - Cardiovascular Exam Cardiovascular Exam: REGULAR RHYTHM, +S1, +S2 Additional comments: Telemetry 80's NSR - GI/Abdominal Exam GI & Abdominal Exam: Soft, Normal Bowel Sounds - Extremities Exam Extremities Exam: Full ROM - Neurological Exam Neurological Exam: Alert, Awake - Psychiatric Exam Psychiatric exam: Normal Affect, Normal Mood - Skin Skin Exam: Normal Color, Warm Assessment and Plan - Assessment and Plan (Free Text) Assessment: A 57 year old female who came in to the ER due chest pain. 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 History of seizure disorder,anxiety,SLE, psoriasis,hypertension, UTI, Cholecystectomy, arthritis, GI bleeding, migriane, opioid dependence, depression, pelvic floor disorder. Last seizure activity 2 days ago post FIREMAN. EKG showed tachycardia, non specific ST-T wave changes. No other cardiac work up done at [facility]. Troponin normal. CT of head- normal. Echo done. Stress test held yesterday due to recent seizure activity. For stress test today but patient refusing. Plan: Echo done - LV size normal, LVEF 54% Transmitral doppler flow Grade 1 For Stress test today but patient refusing Blood pressure controlled Heart rate controlled No seizures On ASA 81 mg daily,Lovenox 40 mg daily,Dilantin 100 mg every 8 hours Continue current medications Continue current treatment Lifestyle modifications Will follow up Plan and treatment discussed with Dr. Barajas
[2018-03-24 08:19] LABS: ALB/GLOB RATIO 1.2 (1.1-1.8); ALBUMIN 4.3 g/dL (3.0-4.8); ALT/SGPT 30 U/L (7-56); AST/SGOT 20 U/L (14-36); BLOOD UREA NITROGEN 13 mg/dL (7-21); CALCIUM 9.9 mg/dL (8.4-10.5); GFR NON-AFRICAN AMERICAN > 60
[2018-03-24] MEDS: Enoxaparin 40 mg Syringe SC SCH (09:39)
--- NOTE | 2018-03-24 11:05 | CP.PCM.DIS ---
<Solo Franco - Last Filed: 03/24/18 12:03> Provider - Provider Date of Admission: 03/22/18 16:23 Attending physician: Elva Guajardo DO Primary care physician: Jaziel Welch MD Consults: 03/22/18 17:06 Cardiology Consult Routine Comment: Consulting Provider: Eloy Barajas Consulting Physician: Eloy Barajas Reason for Consult: chest pain 03/22/18 22:33 Neurology Consult Routine Comment: Consulting Provider: Ana Iyer Consulting Physician: Ana Iyer Reason for Consult: seizures vs pseudoseizures 03/23/18 13:31 Psychiatry Consult Routine Comment: Consulting Provider: Kelley Meade Consulting Physician: Kelley Meade Reason for Consult: severe depression Time Spent in preparation of Discharge (in minutes): 45 Diagnosis - Discharge Diagnosis (1) Chest pain Status: Acute (2) Anxiety Status: Chronic (3) Seizure Status: Chronic (4) Diarrhea Status: Resolved Hospital Course - Lab Results Lab Results: Most Recent Lab Values WBC 5.6 10^3/uL (4.5-11.0) 03/24/18 06:30 RBC 5.17 10^6/uL (3.5-6.1) 03/24/18 06:30 Hgb 15.2 g/dL (12.0-16.0) 03/24/18 06:30 Hct 45.2 % (36.0-48.0) 03/24/18 06:30 MCV 87.4 fl (80.0-105.0) 03/24/18 06:30 MCH 29.4 pg (25.0-35.0) 03/24/18 06:30 MCHC 33.6 g/dl (31.0-37.0) 03/24/18 06:30 RDW 14.3 % (11.5-14.5) 03/24/18 06:30 Plt Count 355 10^3/uL (120.0-450.0) 03/24/18 06:30 MPV 10.5 fl (7.0-11.0) 03/24/18 06:30 Gran % 60.6 % (50.0-68.0) 03/24/18 06:30 Lymph % (Auto) 30.4 % (22.0-35.0) 03/24/18 06:30 [place] % (Auto) 7.2 % (1.0-6.0) H 03/24/18 06:30 Eos % (Auto) 1.4 % (1.5-5.0) L 03/24/18 06:30 Baso % (Auto) 0.4 % (0.0-3.0) 03/24/18 06:30 Gran # 3.39 (1.4-6.5) 03/24/18 06:30 Lymph # (Auto) 1.7 (1.2-3.4) 03/24/18 06:30 [place] # (Auto) 0.4 (0.1-0.6) 03/24/18 06:30 Eos # (Auto) 0.1 (0.0-0.7) 03/24/18 06:30 Baso # (Auto) 0.02 K/mm3 (0.0-2.0) 03/24/18 06:30 PT 11.7 SECONDS (9.4-12.5) 03/22/18 15:30 INR 1.03 03/22/18 15:30 APTT 29.2 Seconds (25.1-36.5) 03/22/18 15:30 pO2 191 mm/Hg (30-55) H 03/22/18 15:30 VBG pH 7.47 (7.32-7.43) H 03/22/18 15:30 VBG pCO2 24.0 (40-60) L 03/22/18 15:30 VBG HCO3 17.5 mmol/l (21-28) L 03/22/18 15:30 VBG Total CO2 18.2 mmol.L (22-28) L 03/22/18 15:30 VBG O2 Sat (Calc) 99.2 % (40-65) H 03/22/18 15:30 VBG Base Excess -4.4 mmol/L (0.0-2.0) L 03/22/18 15:30 VBG Potassium 3.8 mmol/L (3.6-5.2) 03/22/18 15:30 Sodium 139.0 mmol/L (132-148) 03/22/18 15:30 Chloride 106.0 mmol/L (98-107) 03/22/18 15:30 Glucose 100 mg/dl (65-105) 03/22/18 15:30 Lactate 1.6 mmol/L (0.7-2.1) 03/22/18 15:30 FiO2 21.0 % 03/22/18 15:30 Sodium 139 mmol/L (132-148) 03/24/18 06:50 Potassium 4.4 mmol/L (3.6-5.0) 03/24/18 06:50 Chloride 106 mmol/L (98-107) 03/24/18 06:50 Carbon Dioxide 23 mmol/L (21-33) 03/24/18 06:50 Anion Gap 15 (10-20) 03/24/18 06:50 BUN 13 mg/dL (7-21) 03/24/18 06:50 Creatinine 0.6 mg/dl (0.7-1.2) L 03/24/18 06:50 Est GFR ( Amer) > 60 03/24/18 06:50 Est GFR (Non-Af Amer) > 60 03/24/18 06:50 POC Glucose (mg/dL) 83 mg/dL (65-110) 03/24/18 07:24 Random Glucose 87 mg/dL (70-110) 03/24/18 06:50 Hemoglobin A1c 4.8 % (4.2-6.5) 03/23/18 05:00 Calcium 9.9 mg/dL (8.4-10.5) 03/24/18 06:50 Phosphorus 3.0 mg/dL (2.5-4.5) 03/23/18 05:00 Magnesium 1.8 mg/dL (1.7-2.2) 03/23/18 05:00 Total Bilirubin 0.9 mg/dL (0.2-1.3) 03/24/18 06:50 AST 20 U/L (14-36) 03/24/18 06:50 ALT 30 U/L (7-56) 03/24/18 06:50 Alkaline Phosphatase 103 U/L (38-126) 03/24/18 06:50 Troponin I < 0.01 ng/mL 03/23/18 01:50 NT-Pro-B Natriuret Pep 75.7 pg/mL (0-450) 03/22/18 15:30 Total Protein 7.9 g/dL (5.8-8.3) 03/24/18 06:50 Albumin 4.3 g/dL (3.0-4.8) 03/24/18 06:50 Globulin 3.6 gm/dL 03/24/18 06:50 Albumin/Globulin Ratio 1.2 (1.1-1.8) 03/24/18 06:50 Triglycerides 66 mg/dL (35-160) 03/23/18 05:00 Cholesterol 147 mg/dL (130-200) 03/23/18 05:00 LDL Cholesterol Direct 90 mg/dL (0-129) 03/23/18 05:00 HDL Cholesterol 47 mg/dL (29-60) 03/23/18 05:00 Procalcitonin < 0.05 NG/ML (0.19-0.49) L 03/23/18 06:30 TSH 3rd Generation 1.53 mIU/mL (0.46-4.68) 03/23/18 06:30 Prolactin 12.9 ng/mL (3.0-18.9) 03/22/18 22:46 Venous Blood Potassium 3.8 mmol/L (3.6-5.2) 03/22/18 15:30 Urine Color Cancelled 03/22/18 15:30 Urine Appearance Cancelled 03/22/18 15:30 Urine pH Cancelled 03/22/18 15:30 Ur Specific [place] Cancelled 03/22/18 15:30 Urine Protein Cancelled 03/22/18 15:30 Urine Glucose (UA) Cancelled 03/22/18 15:30 Urine Ketones Cancelled 03/22/18 15:30 Urine Blood Cancelled 03/22/18 15:30 Urine Nitrate Cancelled 03/22/18 15:30 Urine Bilirubin Cancelled 03/22/18 15:30 Urine Urobilinogen Cancelled 03/22/18 15:30 Ur Leukocyte Esterase Cancelled 03/22/18 15:30 Urine RBC Cancelled 03/22/18 15:30 Urine WBC Cancelled 03/22/18 15:30 Ur Epithelial Cells Cancelled 03/22/18 15:30 Calcium Oxalate Crystal Cancelled 03/22/18 15:30 Uric Acid Crystals Cancelled 03/22/18 15:30 Triple Phos Crystals Cancelled 03/22/18 15:30 Other Crystals Cancelled 03/22/18 15:30 Amorphous Sediment Cancelled 03/22/18 15:30 Urine Bacteria Cancelled 03/22/18 15:30 Hyaline Casts Cancelled 03/22/18 15:30 Fine Granular Casts Cancelled 03/22/18 15:30 Coarse Granular Casts Cancelled 03/22/18 15:30 Waxy Casts Cancelled 03/22/18 15:30 RBC Casts Cancelled 03/22/18 15:30 WBC Casts Cancelled 03/22/18 15:30 Urine Other Cancelled 03/22/18 15:30 Urine Opiates Screen Negative (NEGATIVE) 03/23/18 17:20 Urine Methadone Screen Negative (NEGATIVE) 03/23/18 17:20 Ur Barbiturates Screen Negative (NEGATIVE) 03/23/18 17:20 Phenytoin < 3 ug/mL (10-20) L 03/23/18 11:14 Ur Phencyclidine Scrn Negative (NEGATIVE) 03/23/18 17:20 Ur Amphetamines Screen Negative (NEGATIVE) 03/23/18 17:20 U Benzodiazepines Scrn Positive (NEGATIVE) H 03/23/18 17:20 U Oth Cocaine Metabols Negative (NEGATIVE) 03/23/18 17:20 U Cannabinoids Screen Negative (NEGATIVE) 03/23/18 17:20 Alcohol, Quantitative < 10 mg/dL (0-10) 03/22/18 15:30 - Hospital Course Hospital Course: HPI at time of admission: "This is a 57 year old female with PMH of opioid dependence, anxiety, seizure, depression and pelvic floor dysfunction presenting to the ER for 4 day history of CP. CP is located in the mid sternal region, characterized as tightness, radiating to the left arm, intermittent, rated 10/10 at worst, associated with SOB and denies any alleviating and exacerbating factors. She states she has had similar pain over the last couple of months. Of note, she was seen in the ED at [facility] and [facility] [place] multiple times for similar symptoms over the last week and has left AMA a total of three times over the last week ([address] [facility] and 1 at [facility] [place]). Today she states symptoms are getting worse. She states she does not currently take any medications. She admits to CP, SOB, and 4 episodes of watery green diarrhea yesterday. She denies fevers, chills, back pain, abdominal pain, constipation, numbness, tingling, swelling, recent sickness, sick contacts, travel, trauma and lifestyle changes including diet and weight. 12 point ROS noted here, otherwise unremarkable." Hospital Course: Pertinent imaging: EKG: sinus tachycardia at 131 bpm, no ST changes. CXR 03/22: no active disease Chest CT 03/22: somewhat suboptimal pulmonary artery opacification however there is no definitive evidence to suggest pulmonary embolus at this time. Nonspecific limited b/l basilar ground-glass opacity with LLL linear atelectasis or fibrosis again evident. B/l basilar subsegmental atelectasis identified as well. Head CT 03/22: normal Echo 03/23: wnl, normal ejection fraction. Pt refused to have EEG and stress test done while inpatient. Pt was admitted for chest pain, r/o ACS. Troponins neg x3. Cardiology was consulted (Dr. Barajas), who recommended echo and stress test. Pt refused to have stress test performed. A1c 4.8, TSH 1.53, lipid panel wnl. Pt was started on daily ASA while inpatient. Pt was also c/o diarrhea during admission which subsequently resolved. Of note, when pt was recently discharged from this hospital, she was sent home on PO course of Dilantin, but was not compliant with therapy. Last known prescription was filled in Oct 2017 per review with home pharmacy. [facility] was called during admission for presumed seizure, Neuro was consulted (Dr. iyer), who recommended EEG, which pt refused. Pt's home med Dilantin was d/c'd and was started on Tegretol. Psych was also consulted for severe depression, who recommended pt be continued on Ambien, Elavil and Xanax. Pt was discharged to home on 03/24/18. Was instructed to f/u with PMD Dr. Welch within 3-5 days of discharge. Instructed to f/u with Neurology (Dr. Iyer) within 1 week of discharge. Instructed to f/u with Cardiology (Dr. Barajas) within 1 week of discharge. Was given prescriptions for Tegretol and Aspirin on d/c. Instructed to stop taking Dilantin at home. Instructed to continue other home medications as prescribed. Instructed to f/u for EEG and stress test outpatient since she refused tests during admission. For further details of admission, please refer to hospital EMR. Discharge Exam - Head Exam Head Exam: NORMAL INSPECTION, NORMOCEPHALIC - Eye Exam Eye Exam: EOMI, Normal appearance, PERRL - ENT Exam ENT Exam: Mucous Membranes Moist - Respiratory Exam Respiratory Exam: Clear to PA & Lateral, NORMAL BREATHING PATTERN, UNREMARKABLE. absent: Rales, Rhonchi, Wheezes - Cardiovascular Exam Cardiovascular Exam: REGULAR RHYTHM, +S1, +S2. absent: Gallop, Rubs, Systolic Murmur - GI/Abdominal Exam GI & Abdominal Exam: Normal Bowel Sounds, Soft, Unremarkable. absent: Distended, Guarding, Tenderness - Extremities Exam Extremities exam: full ROM, normal capillary refill, normal inspection, pedal pulses present - Back Exam Back exam: FULL ROM, NORMAL INSPECTION. absent: paraspinal tenderness - Neurological Exam Neurological exam: Alert, CN II-XII Intact, Normal Gait, Oriented x3, Reflexes Normal - Psychiatric Exam Psychiatric exam: Flat Affect - Skin Skin Exam: Dry, Intact, Normal Color, Warm Discharge Plan - Discharge Medications Prescriptions: RX: Aspirin [Aspirin Chewable] 81 mg PO DAILY #14 chew RX: carBAMazepine [Tegretol] 100 mg PO BID #60 tab - Follow Up Plan Condition: GUARDED Disposition: HOME/ ROUTINE Instructions: Chest Pain (DC) Additional Instructions: Please follow up with your primary medical doctor, Dr. Welch, within 3-5 days of discharge. Please follow up with neurology, Dr. Iyer, within 1 week of discharge. Please follow up with Cardiology, Dr. Barajas, within 1 week of discharge for stress test. You were given a prescription for: 1. Carbamazepine 100mg TWICE PER DAY 2. Aspirin 81 mg ONCE PER DAY STOP TAKING DILANTIN Please follow-up for EEG and Stress test as outpatient. Continue all other home medications as prescribed. If your symptoms return, please go to the nearest emergency department. Referrals: Eloy Barajas MD [Staff Provider] - Jaziel Welch [Primary Care Provider] - Follow up with primary Ana Iyer MD [Staff Provider] - <Elva Guajardo - Last Filed: 03/27/18 16:23> Provider - Provider Date of Admission: 03/22/18 16:23 Attending physician: Elva Guajardo DO Primary care physician: Jaizel Welch MD Consults: 03/22/18 17:06 Cardiology Consult Routine Comment: Consulting Provider: Eloy Barajas Consulting Physician: Eloy Barajas Reason for Consult: chest pain 03/22/18 22:33 Neurology Consult Routine Comment: Consulting Provider: Ana Iyer Consulting Physician: Ana Iyer Reason for Consult: seizures vs pseudoseizures 03/23/18 13:31 Psychiatry Consult Routine Comment: Consulting Provider: Kelley Meade Consulting Physician: Kelley Meade Reason for Consult: severe depression Hospital Course - Lab Results Lab Results: Most Recent Lab Values WBC 5.6 10^3/uL (4.5-11.0) 03/24/18 06:30 RBC 5.17 10^6/uL (3.5-6.1) 03/24/18 06:30 Hgb 15.2 g/dL (12.0-16.0) 03/24/18 06:30 Hct 45.2 % (36.0-48.0) 03/24/18 06:30 MCV 87.4 fl (80.0-105.0) 03/24/18 06:30 MCH 29.4 pg (25.0-35.0) 03/24/18 06:30 MCHC 33.6 g/dl (31.0-37.0) 03/24/18 06:30 RDW 14.3 % (11.5-14.5) 03/24/18 06:30 Plt Count 355 10^3/uL (120.0-450.0) 03/24/18 06:30 MPV 10.5 fl (7.0-11.0) 03/24/18 06:30 Gran % 60.6 % (50.0-68.0) 03/24/18 06:30 Lymph % (Auto) 30.4 % (22.0-35.0) 03/24/18 06:30 [place] % (Auto) 7.2 % (1.0-6.0) H 03/24/18 06:30 Eos % (Auto) 1.4 % (1.5-5.0) L 03/24/18 06:30 Baso % (Auto) 0.4 % (0.0-3.0) 03/24/18 06:30 Gran # 3.39 (1.4-6.5) 03/24/18 06:30 Lymph # (Auto) 1.7 (1.2-3.4) 03/24/18 06:30 [place] # (Auto) 0.4 (0.1-0.6) 03/24/18 06:30 Eos # (Auto) 0.1 (0.0-0.7) 03/24/18 06:30 Baso # (Auto) 0.02 K/mm3 (0.0-2.0) 03/24/18 06:30 PT 11.7 SECONDS (9.4-12.5) 03/22/18 15:30 INR 1.03 03/22/18 15:30 APTT 29.2 Seconds (25.1-36.5) 03/22/18 15:30 pO2 191 mm/Hg (30-55) H 03/22/18 15:30 VBG pH 7.47 (7.32-7.43) H 03/22/18 15:30 VBG pCO2 24.0 (40-60) L 03/22/18 15:30 VBG HCO3 17.5 mmol/l (21-28) L 03/22/18 15:30 VBG Total CO2 18.2 mmol.L (22-28) L 03/22/18 15:30 VBG O2 Sat (Calc) 99.2 % (40-65) H 03/22/18 15:30 VBG Base Excess -4.4 mmol/L (0.0-2.0) L 03/22/18 15:30 VBG Potassium 3.8 mmol/L (3.6-5.2) 03/22/18 15:30 Sodium 139.0 mmol/L (132-148) 03/22/18 15:30 Chloride 106.0 mmol/L (98-107) 03/22/18 15:30 Glucose 100 mg/dl (65-105) 03/22/18 15:30 Lactate 1.6 mmol/L (0.7-2.1) 03/22/18 15:30 FiO2 21.0 % 03/22/18 15:30 Sodium 139 mmol/L (132-148) 03/24/18 06:50 Potassium 4.4 mmol/L (3.6-5.0) 03/24/18 06:50 Chloride 106 mmol/L (98-107) 03/24/18 06:50 Carbon Dioxide 23 mmol/L (21-33) 03/24/18 06:50 Anion Gap 15 (10-20) 03/24/18 06:50 BUN 13 mg/dL (7-21) 03/24/18 06:50 Creatinine 0.6 mg/dl (0.7-1.2) L 03/24/18 06:50 Est GFR ( Amer) > 60 03/24/18 06:50 Est GFR (Non-Af Amer) > 60 03/24/18 06:50 POC Glucose (mg/dL) 83 mg/dL (65-110) 03/24/18 07:24 Random Glucose 87 mg/dL (70-110) 03/24/18 06:50 Hemoglobin A1c 4.8 % (4.2-6.5) 03/23/18 05:00 Calcium 9.9 mg/dL (8.4-10.5) 03/24/18 06:50 Phosphorus 3.0 mg/dL (2.5-4.5) 03/23/18 05:00 Magnesium 1.8 mg/dL (1.7-2.2) 03/23/18 05:00 Total Bilirubin 0.9 mg/dL (0.2-1.3) 03/24/18 06:50 AST 20 U/L (14-36) 03/24/18 06:50 ALT 30 U/L (7-56) 03/24/18 06:50 Alkaline Phosphatase 103 U/L (38-126) 03/24/18 06:50 Troponin I < 0.01 ng/mL 03/23/18 01:50 NT-Pro-B Natriuret Pep 75.7 pg/mL (0-450) 03/22/18 15:30 Total Protein 7.9 g/dL (5.8-8.3) 03/24/18 06:50 Albumin 4.3 g/dL (3.0-4.8) 03/24/18 06:50 Globulin 3.6 gm/dL 03/24/18 06:50 Albumin/Globulin Ratio 1.2 (1.1-1.8) 03/24/18 06:50 Triglycerides 66 mg/dL (35-160) 03/23/18 05:00 Cholesterol 147 mg/dL (130-200) 03/23/18 05:00 LDL Cholesterol Direct 90 mg/dL (0-129) 03/23/18 05:00 HDL Cholesterol 47 mg/dL (29-60) 03/23/18 05:00 Procalcitonin < 0.05 NG/ML (0.19-0.49) L 03/23/18 06:30 TSH 3rd Generation 1.53 mIU/mL (0.46-4.68) 03/23/18 06:30 Prolactin 12.9 ng/mL (3.0-18.9) 03/22/18 22:46 Venous Blood Potassium 3.8 mmol/L (3.6-5.2) 03/22/18 15:30 Urine Color Cancelled 03/22/18 15:30 Urine Appearance Cancelled 03/22/18 15:30 Urine pH Cancelled 03/22/18 15:30 Ur Specific [place] Cancelled 03/22/18 15:30 Urine Protein Cancelled 03/22/18 15:30 Urine Glucose (UA) Cancelled 03/22/18 15:30 Urine Ketones Cancelled 03/22/18 15:30 Urine Blood Cancelled 03/22/18 15:30 Urine Nitrate Cancelled 03/22/18 15:30 Urine Bilirubin Cancelled 03/22/18 15:30 Urine Urobilinogen Cancelled 03/22/18 15:30 Ur Leukocyte Esterase Cancelled 03/22/18 15:30 Urine RBC Cancelled 03/22/18 15:30 Urine WBC Cancelled 03/22/18 15:30 Ur Epithelial Cells Cancelled 03/22/18 15:30 Calcium Oxalate Crystal Cancelled 03/22/18 15:30 Uric Acid Crystals Cancelled 03/22/18 15:30 Triple Phos Crystals Cancelled 03/22/18 15:30 Other Crystals Cancelled 03/22/18 15:30 Amorphous Sediment Cancelled 03/22/18 15:30 Urine Bacteria Cancelled 03/22/18 15:30 Hyaline Casts Cancelled 03/22/18 15:30 Fine Granular Casts Cancelled 03/22/18 15:30 Coarse Granular Casts Cancelled 03/22/18 15:30 Waxy Casts Cancelled 03/22/18 15:30 RBC Casts Cancelled 03/22/18 15:30 WBC Casts Cancelled 03/22/18 15:30 Urine Other Cancelled 03/22/18 15:30 Urine Opiates Screen Negative (NEGATIVE) 03/23/18 17:20 Urine Methadone Screen Negative (NEGATIVE) 03/23/18 17:20 Ur Barbiturates Screen Negative (NEGATIVE) 03/23/18 17:20 Phenytoin < 3 ug/mL (10-20) L 03/23/18 11:14 Ur Phencyclidine Scrn Negative (NEGATIVE) 03/23/18 17:20 Ur Amphetamines Screen Negative (NEGATIVE) 03/23/18 17:20 U Benzodiazepines Scrn Positive (NEGATIVE) H 03/23/18 17:20 U Oth Cocaine Metabols Negative (NEGATIVE) 03/23/18 17:20 U Cannabinoids Screen Negative (NEGATIVE) 03/23/18 17:20 Alcohol, Quantitative < 10 mg/dL (0-10) 03/22/18 15:30 Attending/Attestation - Attestation I have personally seen and examined this patient.: Yes I have fully participated in the care of the patient.: Yes I have reviewed all pertinent clinical information, including history, physical exam and plan: Yes Notes (Text): Please note this DC summary is for 03/24/18. Patient seen and examined by me with resident at 9:35 AM and prior to discharge on 03/24/18. Case including discharge plan discussed with resident. Agree with above with following additions/corrections. Patient is a 57 year old female with past medical history significant for opioid dependence, anxiety, seizure, depression, and pelvic floor dysfunction that presented to the emergency room with 4 day history of chest pain. Please see H&P for full details. Patient was admitted with chest pain, tachycardia, anxiety and depression, chronic back pain, migraines, and seizure disorder. Cardiology was consulted. Chest xray per radiologist showed no active disease. Chest CT per radiologist showed somewhat suboptimal pulmonary artery opacification however there is no definitive evidence to suggest pulmonary embolus; nonspecific limits bilateral basilar ground-glass opacity with left lower lobe linear atelectasis of fibrosis again evident; bilateral basilar subsegmental atelectasis identified as well. CT head per radiologist showed normal CT of head. 2D echo per doctor of nurse anesthesia practice showed left ventricle is normal size, normal left ventricular wall thickness, left ventricular function is normal, left ventricular ejection fraction is within normal range, normal LV segmental wall motion, transmitral doppler flow pattern is Grade 1-abnormal relaxation pattern. Troponins were within normal limits. Pr olactin was 12.0. Procalcitonin was < 0.05. BNP was 75.7. Hgb A1C was 4.8. Patient had no leukocytosis. Patient remained afebrile. Patient had rapid responses, for a possible pseudo seizure and fall. Per nurses, patient purposely threw herself on ground and started shaking her body. Patient seen by neurologist. Patient refused EEG. Dilantin was stopped by neurologist and patient was started on Tegretol. Patient was noncompliant with medications at home. Patient had episode of diarrhea which resolved. Patient also refused stress test. Patient was cleared for discharge by both neurologist and ca rdiologist. Patient was discharged home. On day of discharge, patient stated she was feeling better. She denies ant chest pain. No shortness of breath or palpitations. No nausea, vomiting, or abdominal pain. No headaches or dizziness. No lightheadedness. No dysuria. No fevers or chills. No diarrhea or constipation. Importance of EEG and stress test was discussed at length with patient, however, patient continued to refuse having these tests done. Physical exam: General: Awake and alert lying in bed in no acute distress HEENT: Normocephalic, atraumatic. Extraocular muscles intact, pupils equal and reactive, no scleral icterus. Oropharynx is pink and moist. No pharyngeal erythema or exudate appreciated. Neck is supple. Cardiovascular: Regular rhythm. Normal S1 and S2.No murmurs, rubs, or gallops appreciated Pulmonary: Normal respiratory effort. No rhonchi, rales, or wheezing appreciated. Gastrointestinal: Soft, nondistended. Nontender. Positive bowel sounds all 4 quadrants. No guarding. Musculoskeletal: Moves all extremities. No edema appreciated. No calf tenderness. Central nervous system: AAOx3, CN 2-12 grossly intact. Dermatologic: Skin warm and dry. Please see chart for full details. Follow up instructions: Patient to follow up with primary care doctor within 3-5 days. Patient to follow up with doctor of nurse anesthesia practice within one week of discharge. Patient to follow up with neurologist within one week of discharge. Patient to take medications as prescribed and patient to stop home Dilantin. All instructions explained to the patient in detail. Patient both understands and agrees to all instructions. Written instructions also given. Time spent in discharging the patient including chart review, medication reconciliation, discussion with the patient, medical data entry clerk, consultants, and nursing staff was 40 minutes.
[2018-03-24 13:56] VITALS: BP 121/73; PULSE 98; TEMP 98.5
--- NOTE | 2018-03-24 17:25 | PN ---
DATE: 03/24/2018 REASON FOR CONSULTATION: Followup, cardiac evaluation, chest pain, history of seizure disorder and anxiety disorder, opioid dependence and depression. This note is in addition to the dictated note by our nurse practitioner, Adela Desouza. SUBJECTIVE: The patient has atypical chest pain, so far no evidence of acute PR. The patient is scheduled for a stress test today. The patient refused a stress test, so far no evidence of acute PR, troponin remains flat x3. The patient had echocardiography done yesterday read by Dr. Peralta, that revealed normal LV function within the normal limit. Atrial size is normal. No mitral regurgitation. No tricuspid regurgitation noted. IMPRESSION AND PLAN: In summary, a 57-year-old female came to the emergency room with chest pain, atypical, who is currently signed out from [facility] history of SLE, history of psoriasis, hypertension, urinary tract infection, cholecystectomy, multiple medical problems and opioid dependant, so far troponin remains flat, no evidence of acute myocardial infarction, and the chest pain is musculoskeletal and tenderness in the chest, though the patient is scheduled a stress test twice today and yesterday, but the patient refused. Current continue medical treatment. Discussed with Dr. Guajardo. Continue baby aspirin. Continue seizure medications. Continue deep venous thrombosis prophylaxis. Okay to be discharged home from cardiology point of view. We will supplement potassium, yesterday potassium was 3.7, today is 4.4, is within normal limit. History of potassium was supplemented, today looks okay. Thank you Dr. Guajardo for providing us the opportunity in taking care of the patient, Gladys Franz. Eloy Barajas MD cc: Dr. Guajardo.
--- NOTE | 2018-03-24 20:08 | PN ---
DATE: 03/24/2018 SUBJECTIVE: This patient was seen today. The patient presented to be alert and oriented. The patient appears a little sad, but the patient denied being depressed. The patient reported that she slept a little bit better. Medication list reviewed with the patient. The patient is not sure about amitriptyline and what was the main reason why she is on that medication, but reported that Xanax is prescribed to her for her anxiety and Ambien was prescribed to her for her insomnia. The patient reported that prior to coming to the hospital, she was flushing pain medication in the toilet, but not the rest of the medications. The patient said that she likes her current medications. She wants to continue the same regimen. The patient denied being depressed. Denied thoughts of harming herself or others. Denies intent or plan. PHYSICAL EXAMINATION: VITAL SIGNS: Reviewed, seems to be stable. LABORATORY DATA: Reviewed. Discussed with the nursing staff. The patient is not agitated, not aggressive. No behavioral disturbances. MENTAL STATUS EXAM: The patient presented to be alert, oriented. Mood described, "I am not depressed now." Affect was flat. Thought process, concrete. Thought content, the patient denied visual, auditory, or tactile hallucinations. Denied paranoid ideation. The patient denied thoughts of harming herself or others. Denied intents or plan. Insight and judgment seem to be fair. Impulses are well controlled. MEDICATIONS: Reviewed. IMPRESSION: Rule out mood disorder due to general medical condition, rule out mood disorder. PLAN: Continue current management. Continue current medication. Medications were confirmed by pharmacy, resumed. The patient has followup appointment with Dr. Welch. The patient posed no imminent danger to self or others. This typewriter operator automatic will sign off. Should you have any questions, give me a call back. Thank you very much for letting me participate in the care of your patient. Kelley Meade MD
== END 2018-03-24 16:28 | disposition home or self-care (01) ==
LOC: ED 15:19 → ERH 16:23 → 2RSO 17:13
PROVIDERS: ADMIT Hospitalist; ATTEND Hospitalist
DX: R07.9 Chest pain, unspecified (principal); G40.909 Epilepsy, unspecified, not intractable, without status epilepticus; G43.909 Migraine, unspecified, not intractable, without status migrainosus; G47.00 Insomnia, unspecified; I10 Essential (primary) hypertension; M32.9 Systemic lupus erythematosus, unspecified; G89.29 Other chronic pain; M54.9 Dorsalgia, unspecified; F32.9 Major depressive disorder, single episode, unspecified; F41.9 Anxiety disorder, unspecified; Z91.14 Patient's other noncompliance with medication regimen; Z91.19 Patient's noncompliance with other medical treatment and regimen
CPT/HCPCS: 36415; 70450; 71045; 71275; 80053; 80061; 80185; 80320; 80324; 80345; 80346; 80349; 80353; 80358; 80361; 82803; 82948; 83036; 83735; 83880; 83992; 84100; 84145; 84146; 84443; 84484; 85025; 85610; 85730; 93005; 93306; 96360; 97161; 97530; 99285; G0378; G8978; G8979; J1650; J2060; J7030; Q9967